=== PATIENT | female | born 1945 | race Caucasian/White ===

== ENCOUNTER 2016-07-16 10:59 | Emergency (ER) | payer MEDICARE, OTHER ==
[~2016-07-16] VITALS: Ht 160 cm; Wt 44.9 kg
[~2016-07-16 10:59] MED LIST: CITA20TA9 PO; FAMO-63 PO; GABA-586 PO; LEVO175T5; PREG150C PO; RANI150T6 PO; SIMV40TA3
[2016-07-16] MEDS ORDERED: IV NORMAL SALINE 1000ML BAG 1,000 ML IV SCH (12:46)
[2016-07-16 13:05] LABS: BILIRUBIN,URINE NEGATIVE (NEG); GLUCOSE,URINE NEGATIVE (NEG); NITRITE,URINE NEGATIVE (NEG); PH,URINE 7.5; PROTEIN,URINE NEGATIVE (NEG-TRACE); UROBILINOGEN,URINE 0.2 mg/dL (0.2 mg/dL)
--- NOTE | 2016-07-16 13:10 | EKG ---
[facility] [address] [place] [address] Test Date: 2016-07-16 Test Time: 13:02:19 Pat Name: ANNABEL JIMENEZ Department: Room: Gender: F [employer] W[employer]: : 1945 Requested By: HEAVEN MUÑOZ Order Number: [id number] Reading MD: Anita Edmond Measurements Intervals [place] Rate: 57 P: 48 ND: 174 QRS: 38 QRSD: 84 T: 63 QT: 430 QTc: 422 Interpretive Statements SINUS RHYTHM NORMAL ECG Electronically Signed On 07-17-2016 0:34:00 [employer] by Anita Edmond
[2016-07-16 13:14] LABS: BARBITURATES NEG (NEG); BENZODIAZEPINES NEG (NEG); CANNABINOIDS NEG (NEG); COCAINE NEG (NEG); METHADONE NEG (NEG); OPIATES NEG (NEG); PHENCYCLIDINE NEG (NEG)
[2016-07-16 13:17] LABS: BACTERIA,URINE FEW /HPF (0-FEW); RBC,URINE 0 /HPF (0-2); SQUAMOUS EPITHELIAL CELL,UR MOD /LPF
[2016-07-16 13:20] LABS: ETHANOL, URINE NEG (NEG)
--- NOTE | 2016-07-16 13:20 | RAD ---
AP chest, 07/16/2016: History: Lightheadedness and dizziness Comparison is made to a study from 08/27/2015. The heart size and pulmonary vascularity are normal. No pulmonary infiltrates are seen. There is no evidence of pleural fluid. There is capsular calcification related to a left breast implant. IMPRESSION: No acute cardiopulmonary abnormality is detected.
[2016-07-16 13:38] LABS: BASO % 1 % (0-3); EOS % 2 % (0-3); HEMATOCRIT 37.9 % (36.0-47.0); HEMOGLOBIN 12.6 g/dL (12.0-15.5); LYMPH # 1.6 x10^3/uL (1.0-4.8); LYMPH % 36 % (24-48); MEAN CORPUSCULAR HEMOGLOBIN 28 pg (25-35); MEAN CORPUSCULAR HGB CONC 33 g/dL (31-37); MEAN CORPUSCULAR VOLUME 85 fL (79-100); MONO % 9 % (0-9); NEUT % 52 % (31-73); PLATELET COUNT 175 x10^3/uL (140-400); RED BLOOD COUNT 4.44 x10^6/uL (3.50-5.40); RED CELL DISTRIBUTION WIDTH 13.6 % (11.5-14.5); WHITE BLOOD COUNT 4.5 x10^3/uL (4.0-11.0)
[2016-07-16 13:47] LABS: CALCIUM 9.4 mg/dL (8.5-10.1); CREATININE 0.8 mg/dL (0.6-1.0); GFR 70.9; POTASSIUM 4.2 mmol/L (3.5-5.1); PROTHROMBIN TIME PATIENT 12.9 SEC (11.7-14.0)
[2016-07-16 13:48] LABS: NEG OBC FOB NEG; POS OBC FOB POS
[2016-07-16 13:53] LABS: ALBUMIN 3.9 g/dL (3.4-5.0); ALBUMIN/GLOBULIN RATIO 1.2 (1.0-1.7); TOTAL BILIRUBIN 0.5 mg/dL (0.2-1.0); TOTAL PROTEIN 7.2 g/dL (6.4-8.2)
[2016-07-16 14:00] VITALS: BP 142/65
[2016-07-16 14:04] LABS: CKMB INDEX 0.9 % (0-4); CKMB MASS 0.9 ng/mL (0.0-3.6)
--- NOTE | 2016-07-16 14:51 | PHYS DOC ---
Past Medical History Past Medical History: Cancer, Diabetes-Type II, High Cholesterol, Hypertension , UTI Additional Past Medical Histor: yeast infections, BREAST CA, MULTIPLE LUNG NODULES, THYROID DZ, ACID REFLUX Past Surgical History: Hip Replacement Additional Past Surgical Histo: rt wrist, R HAND SX Alcohol Use: None Drug Use: None Adult General Chief Complaint Chief Complaint: DIZZY/LIGHT HEADED HPI HPI Patient is a 71 year old female who presents with complaint of "haziness in my head." Patient states that she has been having these symptoms for the past 3-4 months. Patient states that she had been diagnosed 3 months ago with "food poisoning" and states that she was treated for Escherichia coli and salmonella infection. Patient states that after treatment with antibiotic she felt initially better, however after a week she started getting the same symptoms. Patient has not seen her primary physician recently for her symptoms. Patient denies any fevers. Patient states that she is had decreased energy and increased fatigue at home. The patient came to the emergency department for evaluation. Patient denies any pain currently and does not have any issues with vision loss. Patient states that she has had dark stools which she attributes to eating dark green vegetables. Review of Systems Review of Systems Constitutional: Fatigue, "haziness in my head," Denies fever or chills [] Eyes: Denies change in visual acuity, redness, or eye pain [] HENT: Denies nasal congestion or sore throat [] Respiratory: Denies cough or shortness of breath [] Cardiovascular: Denies chest pain or edema [] GI: Dark stools, Denies abdominal pain, nausea, vomiting or diarrhea [] : Denies dysuria or hematuria [] Musculoskeletal: Denies back pain or joint pain [] Integument: Denies rash or skin lesions [] Neurologic: Denies headache, focal weakness or sensory changes [] Endocrine: Denies polyuria or polydipsia [] Current Medications Current Medications Current Medications Medications (Trade) Dose Ordered Sig/Bruno Start Time Stop Time Status Last Admin Dose Admin Sodium Chloride (Iv Sodium Chloride 0.9% 1000ml Bag) 1,000 ml @ 1,000 mls/hr Q1H 07/16/16 12:46 07/16/16 13:45 DC 07/16/16 13:24 1,000 MLS/HR Allergies Allergies Allergies Coded Allergies Type Severity Reaction Last Updated Verified peanut Allergy Intermediate Rash 11/15/15 Yes iodine Adverse Reaction Intermediate vomiting 05/27/14 Yes Physical Exam Physical Exam Constitutional: Alert, afebrile, no acute distress, nontoxic appearance. [] HENT: Normocephalic, atraumatic, bilateral external ears normal, oropharynx moist, no oral exudates, nose normal. [] Eyes: PERRLA, EOMI, conjunctiva normal, no discharge. [] Neck: Normal range of motion, no tenderness, supple, no stridor. [] Cardiovascular:Heart rate regular rhythm, no murmur [] Lungs & Thorax: Bilateral breath sounds clear to auscultation [] Abdomen: Bowel sounds normal, soft, no tenderness, no masses, no pulsatile masses. [] Skin: Warm, dry, no erythema, no rash. [] Back: No tenderness, no CVA tenderness. [] Extremities: No tenderness, no cyanosis, no clubbing, ROM intact, no edema. [] Neurologic: Alert and oriented X 3, normal motor function, normal sensory function, no focal deficits noted. [] Current Patient Data Vital Signs Vital Signs Date Time Temp Pulse Resp B/P Pulse Ox O2 Delivery O2 Flow Rate FiO2 07/16/16 11:16 97.7 70 20 138/64 97 Room Air 97.7 Lab Values Laboratory Tests Test 07/16/16 12:32 07/16/16 13:10 07/16/16 13:25 Urine Collection Type Void Urine Color Yellow Urine Clarity Clear Urine pH 7.5 Urine Specific [place] <=1.005 Urine Protein Negativemg/dL (NEG-TRACE) Urine Glucose (UA) Negativemg/dL (NEG) Urine Ketones (Stick) Negativemg/dL (NEG) Urine Blood Negative (NEG) Urine Nitrite Negative (NEG) Urine Bilirubin Negative (NEG) Urine Urobilinogen Dipstick 0.2mg/dL (0.2 mg/dL) Urine Leukocyte Esterase Trace (NEG) Urine RBC 0/HPF (0-2) Urine WBC 1-4/HPF (0-4) Urine Squamous Epithelial Cells Mod/LPF Urine Bacteria Few/HPF (0-FEW) Urine Opiates Screen Neg (NEG) Urine Methadone Screen Neg (NEG) Urine Barbiturates Neg (NEG) Urine Phencyclidine Screen Neg (NEG) Urine Amphetamine/Methamphetamine Neg (NEG) Urine Benzodiazepines Screen Neg (NEG) Urine Cocaine Screen Neg (NEG) Urine Cannabinoids Screen Neg (NEG) Urine Ethyl Alcohol Neg (NEG) Stool Occult Blood Negative (NEG) White Blood Count 4.5x10^3/uL (4.0-11.0) Red Blood Count 4.44x10^6/uL (3.50-5.40) Hemoglobin 12.6g/dL (12.0-15.5) Hematocrit 37.9% (36.0-47.0) Mean Corpuscular Volume 85fL (79-100) Mean Corpuscular Hemoglobin 28pg (25-35) Mean Corpuscular Hemoglobin Concent 33g/dL (31-37) Red Cell Distribution Width 13.6% (11.5-14.5) Platelet Count 175x10^3/uL (140-400) Neutrophils (%) (Auto) 52% (31-73) Lymphocytes (%) (Auto) 36% (24-48) Monocytes (%) (Auto) 9% (0-9) Eosinophils (%) (Auto) 2% (0-3) Basophils (%) (Auto) 1% (0-3) Neutrophils # (Auto) 2.3x10^3uL (1.8-7.7) Lymphocytes # (Auto) 1.6x10^3/uL (1.0-4.8) Monocytes # (Auto) 0.4x10^3/uL (0.0-1.1) Eosinophils # (Auto) 0.1x10^3/uL (0.0-0.7) Basophils # (Auto) 0.0x10^3/uL (0.0-0.2) Prothrombin Time 12.9SEC (11.7-14.0) Prothrombin Time INR 1.0 (0.8-1.1) PTT 29SEC (24-38) Sodium Level 143mmol/L (136-145) Potassium Level 4.2mmol/L (3.5-5.1) Chloride Level 103mmol/L (98-107) Carbon Dioxide Level 32mmol/L (21-32) Anion Gap 8 (6-14) Blood Urea Nitrogen 14mg/dL (7-20) Creatinine 0.8mg/dL (0.6-1.0) Estimated GFR (Cockcroft-Gault) 70.9 BUN/Creatinine Ratio 18 (6-20) Glucose Level 85mg/dL (70-99) Calcium Level 9.4mg/dL (8.5-10.1) Total Bilirubin 0.5mg/dL (0.2-1.0) Aspartate Amino Transferase (AST) 39U/L (15-37) H Alanine Aminotransferase (ALT) 42U/L (14-59) Alkaline Phosphatase 67U/L (46-116) Creatine Kinase 98U/L (26-192) Creatine Kinase MB (Mass) 0.9ng/mL (0.0-3.6) Creatine Kinase MB Relative Index 0.9% (0-4) Troponin I Quantitative < 0.017ng/mL (0.000-0.055) Total Protein 7.2g/dL (6.4-8.2) Albumin 3.9g/dL (3.4-5.0) Albumin/Globulin Ratio 1.2 (1.0-1.7) Lipase 156U/L (73-393) Thyroid Stimulating Hormone (TSH) 4.503uIU/mL (0.358-3.74) H Laboratory Tests 07/16/16 13:25 Laboratory Tests 07/16/16 13:25 EKG EKG Interpreted by me: Heart rate 57, sinus rhythm, normal intervals, normal axis, no acute ST/T-wave abnormalities present [] Radiology/Procedures Radiology/Procedures [facility] [address] [place] [address] IMAGING REPORT Signed PATIENT: ANNABEL JIMENEZ ACCOUNT: [id number] : 1945 LOCATION: ER AGE: 71 SEX: F EXAM STATUS: REG ER ORD. PHYSICIAN: HEAVEN MUÑOZ MD REASON: lightheadedness, dizziness, rule out acute cardiopulmonary abnormality PROCEDURE: PORTABLE CHEST 1V AP chest, 07/16/2016: History: Lightheadedness and dizziness Comparison is made to a study from 08/27/2015. The heart size and pulmonary vascularity are normal. No pulmonary infiltrates are seen. There is no evidence of pleural fluid. There is capsular calcification related to a left breast implant. IMPRESSION: No acute cardiopulmonary abnormality is detected. DICTATED and SIGNED BY: LAURENT ANGELO MD DATE: 07/16/16 1317 CC: ANGELICA ASHTON; HEAVEN MUÑOZ MD ~ [] Course & Med Decision Making Course & Med Decision Making Pertinent Labs and Imaging studies reviewed. (See chart for details) Patient's workup shows an elevated TSH level which may be suggestive of under treatment of the patient's hypothyroid condition. This may be contributing to the patient's symptomatology. I recommended that the patient follow-up in the next 2-3 days with her primary physician for reevaluation of her current Synthroid treatment and possible need to increase dosage. The patient's workup otherwise is unremarkable. The patient was recommended to return to the emergency department for any worsening or severe symptoms including fevers, chest or abdominal pain, shortness of breath, or any other worrisome symptoms. Patient voiced understanding and in agreement with treatment plan. Dragon Disclaimer Dragon Disclaimer This electronic medical record was generated, in whole or in part, using a voice recognition dictation system. Departure Departure Impression: Primary Impression: Hypothyroidism Additional Impression: Fatigue Disposition: 01 HOME, SELF-CARE Condition: IMPROVED Referrals: ANGELICA ASHTON (PCP) Patient Instructions: Fatigue, Thyroid Diseases Additional Instructions: Follow-up with your primary doctor in 2-3 days. You may need to have an adjustment on your thyroid medication as your TSH was elevated, however your primary doctor will need to do additional thyroid studies if needed. Return to the emergency department if you have any worsening symptoms. Problem Qualifiers Primary Impression: Hypothyroidism Hypothyroidism type: unspecified Qualified Code: E03.9 - Hypothyroidism, unspecified Additional Impression: Fatigue Fatigue type: unspecified Qualified Code: R53.83 - Other fatigue HEAVEN MUÑOZ MD Jul 16, 2016 14:51
== END 2016-07-16 15:00 | disposition home or self-care (01) ==
LOC: ER 10:59
DX: R53.83 Other fatigue (principal); E03.9 Hypothyroidism, unspecified; E11.9 Type 2 diabetes mellitus without complications; E78.00 Pure hypercholesterolemia, unspecified; I10 Essential (primary) hypertension; K21.9 Gastro-esophageal reflux disease without esophagitis; Z87.440 Personal history of urinary (tract) infections; Z98.890 Other specified postprocedural states; Z96.649 Presence of unspecified artificial hip joint; Z91.041 Radiographic dye allergy status; Z91.010 Allergy to peanuts
CPT/HCPCS: 36415; 71010; 80053; 81001; 82274; 82553; 83690; 84443; 84484; 85027; 85610; 85730; 86850; 86900; 86901; 87086; 93005; 96360; 99285; G0481; J7030

== ENCOUNTER 2016-09-10 21:39 | Emergency (ER) | payer MEDICARE, OTHER ==
[~2016-09-10] VITALS: Ht 160 cm; Wt 46.7 kg
[2016-09-10 22:11] VITALS: BP 129/55
--- NOTE | 2016-09-10 22:19 | PHYS DOC ---
Past Medical History Past Medical History: Cancer, Diabetes-Type II, High Cholesterol, Hypertension , UTI Additional Past Medical Histor: yeast infections, BREAST CA, MULTIPLE LUNG NODULES, THYROID DZ, ACID REFLUX Past Surgical History: Hip Replacement Additional Past Surgical Histo: rt wrist, R HAND SX Alcohol Use: None Drug Use: None Adult General Chief Complaint Chief Complaint: DENTAL PROBLEM HPI HPI 71-year-old female presents stating her gums hurt. She states is been going on for a few days. She's not had any bleeding swelling or redness. She states it happened after cat scratched her. She has not had any other trauma to the area. She's been eating drinking voiding and stooling normally. [] Review of Systems Review of Systems Constitutional: Denies fever or chills [] Eyes: Denies change in visual acuity, redness, or eye pain [] HENT: Per history of present illness [] Respiratory: Denies cough or shortness of breath [] Cardiovascular: No additional information not addressed in HPI [] GI: Denies abdominal pain, nausea, vomiting, bloody stools or diarrhea [] : Denies dysuria or hematuria [] Musculoskeletal: Denies back pain or joint pain [] Integument: Denies rash or skin lesions [] Neurologic: Denies headache, focal weakness or sensory changes [] Endocrine: Denies polyuria or polydipsia [] Allergies Allergies Allergies Coded Allergies Type Severity Reaction Last Updated Verified peanut Allergy Intermediate Rash 11/15/15 Yes iodine Adverse Reaction Intermediate vomiting 05/27/14 Yes Physical Exam Physical Exam Constitutional: Well developed, well nourished, no acute distress, non-toxic appearance. [] HENT: Normocephalic, atraumatic, bilateral external ears normal, oropharynx moist, no oral exudates, nose normal. [] Eyes: PERRLA, EOMI, conjunctiva normal, no discharge. [] Neck: Normal range of motion, no tenderness, supple, no stridor. [] Cardiovascular:Heart rate regular rhythm, no murmur [] Lungs & Thorax: Bilateral breath sounds clear to auscultation [] Abdomen: Bowel sounds normal, soft, no tenderness, no masses, no pulsatile masses. [] Skin: Warm, dry, no erythema, no rash. [] Back: No tenderness, no CVA tenderness. [] Extremities: No tenderness, no cyanosis, no clubbing, ROM intact, no edema. [] Neurologic: Alert and oriented X 3, normal motor function, normal sensory function, no focal deficits noted. [] Psychologic: Affect normal, judgement normal, mood normal. [] EKG EKG [] Radiology/Procedures Radiology/Procedures [] Course & Med Decision Making Course & Med Decision Making Pertinent Labs and Imaging studies reviewed. (See chart for details) [] Dragon Disclaimer Dragon Disclaimer This electronic medical record was generated, in whole or in part, using a voice recognition dictation system. Departure Departure Impression: Primary Impression: Anxiety about health Disposition: HOME, SELF-CARE Condition: STABLE Referrals: ANGELICA ASHTON (PCP) Patient Instructions: Gingivitis Additional Instructions: Follow with a dentist this week for recheck. Return to the emergency department with any new or concerning symptoms MALIKA FORD DO Sep 10, 2016 22:19
== END 2016-09-10 22:26 | disposition home or self-care (01) ==
LOC: ER 21:39
DX: F41.9 Anxiety disorder, unspecified (principal); E11.9 Type 2 diabetes mellitus without complications; E78.00 Pure hypercholesterolemia, unspecified; I10 Essential (primary) hypertension; K21.9 Gastro-esophageal reflux disease without esophagitis; Z88.8 Allergy status to other drugs, medicaments and biological substances; Z91.010 Allergy to peanuts; Z87.440 Personal history of urinary (tract) infections
CPT/HCPCS: 99281

== ENCOUNTER → 2016-10-24 | Outpatient (CLI) | payer MEDICARE, OTHER ==
--- NOTE | 2016-10-24 15:53 | RAD ---
Chest, 2 views, 10/24/2016: History: Cough Comparison is made to a study from 07/16/2016. The heart size and pulmonary vascularity are normal. No pulmonary infiltrates are seen. There is no evidence of pleural fluid. Mild loss of height of several thoracic vertebral bodies appears to be unchanged since a CT study from 05/23/2016. IMPRESSION: No acute cardiopulmonary abnormality is detected.
== END | disposition home or self-care (01) ==
LOC: RAD 11:59
PROVIDERS: ATTEND Internal Medicine Pulmonary Disease
DX: R05 Cough (principal)
CPT/HCPCS: 71020

== ENCOUNTER 2017-02-17 13:15 | Emergency (ER) | payer MEDICARE, OTHER ==
[2017-02-17 13:51] VITALS: BP 136/68
--- NOTE | 2017-02-17 15:16 | PHYS DOC ---
Past Medical History Past Medical History: Cancer, Diabetes-Type II, High Cholesterol, Hypertension , UTI Additional Past Medical Histor: yeast infections, BREAST CA, MULTIPLE LUNG NODULES, THYROID DZ, ACID REFLUX Past Surgical History: Hip Replacement Additional Past Surgical Histo: rt wrist, R HAND SX Alcohol Use: None Drug Use: None Adult General Chief Complaint Chief Complaint: ABDOMINAL PAIN HPI HPI Patient is a 71 year old female who presents with complaint of abdominal pain. Patient states that she has had abdominal pain off and on for the past week. Patient states that she saw an advanced practice provider at her primary physician's office one week ago. Patient stated that she had been having episodes of passing out as she had also complained of her abdominal pain. The patient states that she was told by her provider that she should come to the emergency department at that time. The patient however refused. Patient states initially she was feeling better, however over the past 3 days she has been getting abdominal pain off and on in her left lower quadrant. Patient also states she has not had a bowel movement in 2-3 days. Patient states that she tried glycerin suppositories to help with her symptoms with no relief. Patient states currently she is not experiencing pain. Patient states that she has had frequent episodes of passing out, however she denies any injuries associated with the symptoms. Patient denies any previous history of cardiac disease. Patient does admit that she has not been eating or drinking very well because of her abdominal pain symptoms. Review of Systems Review of Systems Constitutional: Denies fever or chills [] Eyes: Denies change in visual acuity, redness, or eye pain [] HENT: Denies nasal congestion or sore throat [] Respiratory: Denies cough or shortness of breath [] Cardiovascular: Reported syncope, denies chest pain or edema [] GI: Abdominal pain, nausea, decreased appetite, denies bloody stools or diarrhea [] : Denies dysuria or hematuria [] Musculoskeletal: Denies back pain or joint pain [] Integument: Denies rash or skin lesions [] Neurologic: Denies headache, focal weakness or sensory changes [] Current Medications Current Medications Current Medications Medications (Trade) Dose Ordered Sig/Bruno Start Time Stop Time Status Last Admin Dose Admin Sodium Chloride 1,000 ml @ 1,000 mls/hr Q1H 02/17/17 15:30 02/17/17 16:29 DC 02/17/17 15:31 1,000 MLS/HR Allergies Allergies Allergies Coded Allergies Type Severity Reaction Last Updated Verified peanut Allergy Intermediate Rash 11/15/15 Yes iodine Adverse Reaction Intermediate vomiting 05/27/14 Yes Physical Exam Physical Exam Constitutional: Well developed, well nourished, no acute distress, non-toxic appearance. [] HENT: Normocephalic, atraumatic, bilateral external ears normal, oropharynx moist, no oral exudates, nose normal. [] Eyes: PERRLA, EOMI, conjunctiva normal, no discharge. [] Neck: Normal range of motion, no tenderness, supple, no stridor. [] Cardiovascular:Heart rate regular rhythm, no murmur [] Lungs & Thorax: Bilateral breath sounds clear to auscultation [] Abdomen: Bowel sounds normal, soft, no tenderness, no masses, no pulsatile masses. [] Skin: Warm, dry, no erythema, no rash. [] Back: No tenderness, no CVA tenderness. [] Extremities: No tenderness, no cyanosis, no clubbing, ROM intact, no edema. [] Neurologic: Alert and oriented X 3, normal motor function, normal sensory function, no focal deficits noted. [] Current Patient Data Vital Signs Vital Signs Date Time Temp Pulse Resp B/P (MAP) Pulse Ox O2 Delivery O2 Flow Rate FiO2 02/17/17 13:51 98.7 82 16 136/68 (90) 97 Room Air 98.7 Lab Values Laboratory Tests Test 02/17/17 13:45 02/17/17 16:33 Urine Collection Type Unknown Urine Color Yellow Urine Clarity Clear Urine pH 7.5 Urine Specific [place] 1.010 Urine Protein Negative mg/dL (NEG-TRACE) Urine Glucose (UA) Negative mg/dL (NEG) Urine Ketones (Stick) Negative mg/dL (NEG) Urine Blood Negative (NEG) Urine Nitrite Negative (NEG) Urine Bilirubin Negative (NEG) Urine Urobilinogen Dipstick 0.2 mg/dL (0.2 mg/dL) Urine Leukocyte Esterase Trace (NEG) Urine RBC 0 /HPF (0-2) Urine WBC 1-4 /HPF (0-4) Urine Squamous Epithelial Cells Mod /LPF Urine Bacteria Few /HPF (0-FEW) White Blood Count 5.7 x10^3/uL (4.0-11.0) Red Blood Count 4.35 x10^6/uL (3.50-5.40) Hemoglobin 12.5 g/dL (12.0-15.5) Hematocrit 37.8 % (36.0-47.0) Mean Corpuscular Volume 87 fL (79-100) Mean Corpuscular Hemoglobin 29 pg (25-35) Mean Corpuscular Hemoglobin Concent 33 g/dL (31-37) Red Cell Distribution Width 13.2 % (11.5-14.5) Platelet Count 143 x10^3/uL (140-400) Neutrophils (%) (Auto) 54 % (31-73) Lymphocytes (%) (Auto) 32 % (24-48) Monocytes (%) (Auto) 12 % (0-9) H Eosinophils (%) (Auto) 2 % (0-3) Basophils (%) (Auto) 1 % (0-3) Neutrophils # (Auto) 3.1 x10^3uL (1.8-7.7) Lymphocytes # (Auto) 1.8 x10^3/uL (1.0-4.8) Monocytes # (Auto) 0.7 x10^3/uL (0.0-1.1) Eosinophils # (Auto) 0.1 x10^3/uL (0.0-0.7) Basophils # (Auto) 0.0 x10^3/uL (0.0-0.2) Sodium Level 140 mmol/L (136-145) Potassium Level 4.5 mmol/L (3.5-5.1) Chloride Level 105 mmol/L (98-107) Carbon Dioxide Level 28 mmol/L (21-32) Anion Gap 7 (6-14) Blood Urea Nitrogen 14 mg/dL (7-20) Creatinine 0.6 mg/dL (0.6-1.0) Estimated GFR (Cockcroft-Gault) 98.8 BUN/Creatinine Ratio 23 (6-20) H Glucose Level 77 mg/dL (70-99) Calcium Level 8.8 mg/dL (8.5-10.1) Total Bilirubin 0.4 mg/dL (0.2-1.0) Aspartate Amino Transferase (AST) 26 U/L (15-37) Alanine Aminotransferase (ALT) 25 U/L (14-59) Alkaline Phosphatase 52 U/L (46-116) Total Protein 6.4 g/dL (6.4-8.2) Albumin 3.7 g/dL (3.4-5.0) Albumin/Globulin Ratio 1.4 (1.0-1.7) Lipase 118 U/L (73-393) Laboratory Tests 02/17/17 16:33 Laboratory Tests 02/17/17 16:33 EKG EKG Interpreted by me: Heart rate 58, sinus rhythm, normal intervals, normal axis, no acute ST/T-wave abnormalities present [] Radiology/Procedures Radiology/Procedures [facility] [address] [place] [address] IMAGING REPORT Signed PATIENT: HARDY JIMENEZ ACCOUNT: [id number] : 1945 LOCATION: ER AGE: 71 SEX: F EXAM STATUS: REG ER ORD. PHYSICIAN: HEAVEN MUÑOZ MD REASON: abdominal pain PROCEDURE: ACUTE ABDOMEN SERIES Indication dizziness chest pain left lower quadrant pain. A single view of the chest as well as flat and upright films of the abdomen were obtained. The chest is compared to an examination 10/24/2016. The heart and pulmonary vessels appear normal. The lungs are clear. There is no pleural fluid. There is no pneumothorax. Partially calcified breast implants are noted. There is no free air. The abdominal gas pattern is nonobstructive. There is some air in minimally dilated loops of small bowel in the left upper abdomen. This is a nonspecific finding. There is a considerable amount of stool in the large bowel. There is a calcification in the left pelvis compatible with a phlebolith. There is a right hip prosthesis. There are degenerative changes about the left hip. IMPRESSION: No acute findings seen in the chest or abdomen. Nonspecific abdominal gas pattern. Moderately large amount of stool noted in the large bowel. DICTATED and SIGNED BY: JOY ACOSTA MD DATE: 02/17/17 1521 CC: ANGELICA ASHTON; HEAVEN MUÑOZ MD ~ [] Course & Med Decision Making Course & Med Decision Making Pertinent Labs and Imaging studies reviewed. (See chart for details) Patient's lab work and imaging were reviewed. Patient has a large amount of retained stool throughout her colon but no signs of intestinal obstruction. The rest of her lab work is unremarkable. The patient's symptoms are likely the result of dehydration and constipation. The patient will be prescribed GoLYTELY for outpatient treatment of constipation. Recommended follow-up with primary doctor in 3-5 days for reevaluation and return to emergency department for any worsening symptoms. Patient voiced understanding and in agreement with treatment plan. Dragon Disclaimer Dragon Disclaimer This electronic medical record was generated, in whole or in part, using a voice recognition dictation system. Departure Departure Impression: Primary Impression: Constipation Additional Impressions: Intermittent left lower quadrant abdominal pain Dehydration Disposition: HOME, SELF-CARE Condition: IMPROVED Referrals: ANGELICA ASHTON (PCP) Patient Instructions: Abdominal Pain, Constipation, Adult, Dehydration, Adult Additional Instructions: Follow-up with your primary doctor in 3-5 days. Return to the emergency department for any worsening symptoms. Scripts Peg 3350/Na Sulf,Bicarb,Cl/Kcl (GOLYTELY SOLUTION) 4,000 Ml Soln.recon 2000 ML PO PRN Y for CONSTIPATION, #1 MISC Drink one half jug as needed for constipation. May drink the other half as needed if you do not obtained desired results. Prov: HEAVEN MUÑOZ MD 02/17/17 Problem Qualifiers Primary Impression: Constipation Constipation type: unspecified constipation type Qualified Codes: K59.00 - Constipation, unspecified HEAVEN MUÑOZ MD Feb 17, 2017 15:16
[2017-02-17 15:21] LABS: BILIRUBIN,URINE NEGATIVE (NEG); GLUCOSE,URINE NEGATIVE (NEG); NITRITE,URINE NEGATIVE (NEG); PH,URINE 7.5; PROTEIN,URINE NEGATIVE (NEG-TRACE); UROBILINOGEN,URINE 0.2 mg/dL (0.2 mg/dL)
--- NOTE | 2017-02-17 15:29 | RAD ---
Indication dizziness chest pain left lower quadrant pain. A single view of the chest as well as flat and upright films of the abdomen were obtained. The chest is compared to an examination 10/24/2016. The heart and pulmonary vessels appear normal. The lungs are clear. There is no pleural fluid. There is no pneumothorax. Partially calcified breast implants are noted. There is no free air. The abdominal gas pattern is nonobstructive. There is some air in minimally dilated loops of small bowel in the left upper abdomen. This is a nonspecific finding. There is a considerable amount of stool in the large bowel. There is a calcification in the left pelvis compatible with a phlebolith. There is a right hip prosthesis. There are degenerative changes about the left hip. IMPRESSION: No acute findings seen in the chest or abdomen. Nonspecific abdominal gas pattern. Moderately large amount of stool noted in the large bowel.
[2017-02-17] MEDS ORDERED: IV NORMAL SALINE 1000ML BAG 1,000 ML IV SCH (15:30)
--- NOTE | 2017-02-17 15:31 | EKG ---
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
[2017-02-17 15:35] LABS: BACTERIA,URINE FEW /HPF (0-FEW); RBC,URINE 0 /HPF (0-2); SQUAMOUS EPITHELIAL CELL,UR MOD /LPF
[2017-02-17 16:40] LABS: BASO % 1 % (0-3); EOS % 2 % (0-3); HEMATOCRIT 37.8 % (36.0-47.0); HEMOGLOBIN 12.5 g/dL (12.0-15.5); LYMPH # 1.8 x10^3/uL (1.0-4.8); LYMPH % 32 % (24-48); MEAN CORPUSCULAR HEMOGLOBIN 29 pg (25-35); MEAN CORPUSCULAR HGB CONC 33 g/dL (31-37); MEAN CORPUSCULAR VOLUME 87 fL (79-100); MONO % 12 % (0-9); NEUT % 54 % (31-73); PLATELET COUNT 143 x10^3/uL (140-400); RED BLOOD COUNT 4.35 x10^6/uL (3.50-5.40); RED CELL DISTRIBUTION WIDTH 13.2 % (11.5-14.5); WHITE BLOOD COUNT 5.7 x10^3/uL (4.0-11.0)
[2017-02-17 16:56] LABS: CALCIUM 8.8 mg/dL (8.5-10.1); CREATININE 0.6 mg/dL (0.6-1.0); GFR 98.8; POTASSIUM 4.5 mmol/L (3.5-5.1)
[2017-02-17 17:01] LABS: ALBUMIN 3.7 g/dL (3.4-5.0); ALBUMIN/GLOBULIN RATIO 1.4 (1.0-1.7); TOTAL BILIRUBIN 0.4 mg/dL (0.2-1.0); TOTAL PROTEIN 6.4 g/dL (6.4-8.2)
[2017-02-17] MEDS ORDERED: PEG4000S8 PO (17:38)
== END 2017-02-17 18:24 | disposition home or self-care (01) ==
LOC: ER 13:15
DX: R10.32 Left lower quadrant pain (principal); E86.0 Dehydration; K59.00 Constipation, unspecified; E11.9 Type 2 diabetes mellitus without complications; E78.00 Pure hypercholesterolemia, unspecified; I10 Essential (primary) hypertension; K21.9 Gastro-esophageal reflux disease without esophagitis; Z87.440 Personal history of urinary (tract) infections; Z96.649 Presence of unspecified artificial hip joint; Z91.041 Radiographic dye allergy status; Z91.010 Allergy to peanuts
CPT/HCPCS: 36415; 74022; 80053; 81001; 83690; 85027; 87086; 93005; 96360; 96361; 99285; J7030

== ENCOUNTER 2017-04-17 14:44 | Emergency (ER) | payer MEDICARE, OTHER ==
[~2017-04-17] VITALS: Ht 160 cm; Wt 43.5 kg
[~2017-04-17 14:44] MED LIST changes: +PEG4000S8 PO
--- NOTE | 2017-04-17 16:01 | EKG ---
[facility] [address] [place] [address] Test Date: 2017-04-17 Test Time: 15:44:59 Pat Name: HARDY JIMENEZ Department: Room: Gender: F Cost Estimator: : 1945 Requested By: MIGUEL ÁNGEL DAVID Order Number: [id number] Reading MD: Herminio Hobson Measurements Intervals [place] Rate: 58 P: 65 TX: 166 QRS: 26 QRSD: 80 T: 58 QT: 400 QTc: 396 Interpretive Statements SINUS RHYTHM LEFT ATRIAL ABNORMALITY INCOMPLETE RIGHT BUNDLE BRANCH BLOCK QRS(T) CONTOUR ABNORMALITY CONSIDER ANTEROSEPTAL MYOCARDIAL DAMAGE Electronically Signed On 05-07-2017 16:56:46 CDT by Herminio Hobson
[2017-04-17 16:07] VITALS: BP 133/91
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
[2017-04-17 16:25] LABS: BASO % 1 % (0-3); EOS % 1 % (0-3); HEMATOCRIT 35.3 % (36.0-47.0); HEMOGLOBIN 11.7 g/dL (12.0-15.5); LYMPH # 1.7 x10^3/uL (1.0-4.8); LYMPH % 23 % (24-48); MEAN CORPUSCULAR HEMOGLOBIN 29 pg (25-35); MEAN CORPUSCULAR HGB CONC 33 g/dL (31-37); MEAN CORPUSCULAR VOLUME 87 fL (79-100); MONO % 9 % (0-9); NEUT % 66 % (31-73); PLATELET COUNT 189 x10^3/uL (140-400); RED BLOOD COUNT 4.06 x10^6/uL (3.50-5.40); WHITE BLOOD COUNT 7.5 x10^3/uL (4.0-11.0)
[2017-04-17 16:31] LABS: GFR 54.7; POTASSIUM 4.2 mmol/L (3.5-5.1)
[2017-04-17 16:34] LABS: PROTHROMBIN TIME PATIENT 12.2 SEC (11.7-14.0)
[2017-04-17 16:36] LABS: ALBUMIN 3.9 g/dL (3.4-5.0); ALBUMIN/GLOBULIN RATIO 1.4 (1.0-1.7); TOTAL BILIRUBIN 0.3 mg/dL (0.2-1.0); TOTAL PROTEIN 6.6 g/dL (6.4-8.2)
[2017-04-17 16:45] LABS: BILIRUBIN,URINE NEGATIVE (NEG); GLUCOSE,URINE NEGATIVE (NEG); NITRITE,URINE NEGATIVE (NEG); PROTEIN,URINE NEGATIVE (NEG-TRACE); UROBILINOGEN,URINE 0.2 mg/dL (0.2 mg/dL)
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
[2017-04-17 16:51] LABS: BARBITURATES NEG (NEG); BENZODIAZEPINES NEG (NEG); CANNABINOIDS NEG (NEG); COCAINE NEG (NEG); METHADONE NEG (NEG); OPIATES NEG (NEG); PHENCYCLIDINE NEG (NEG)
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
--- NOTE | 2017-04-17 17:04 | RAD ---
Right knee with patella, 4 views, 04/17/2017: History: Fall, knee and leg pain No fracture or dislocation is identified. No joint effusion is seen. IMPRESSION: No acute right knee abnormality is detected. Right tibia and fibula, 2 views, 04/17/2017: No fracture is identified. The soft tissues are unremarkable. IMPRESSION: No significant abnormality is identified.
--- NOTE | 2017-04-17 17:05 | RAD ---
Bilateral ankles, 6 views, 04/17/2017: History: Fall No ankle fracture or dislocation is identified. The soft tissues are unremarkable. IMPRESSION: No acute ankle abnormality is detected.
[2017-04-17 17:06] LABS: BACTERIA,URINE FEW /HPF (0-FEW); RBC,URINE 0 /HPF (0-2); SQUAMOUS EPITHELIAL CELL,UR FEW /LPF
[2017-04-17] MEDS ORDERED: ACETAMINOPHEN 500 MG TABLET PO ONE (17:45)
== END 2017-04-17 17:50 | disposition home or self-care (01) ==
LOC: ER 14:44
DX: S00.03XA Contusion of scalp, initial encounter (principal); S80.01XA Contusion of right knee, initial encounter; M25.571 Pain in right ankle and joints of right foot; M25.572 Pain in left ankle and joints of left foot; M79.672 Pain in left foot; M79.671 Pain in right foot; R07.89 Other chest pain; R05 Cough; R68.84 Jaw pain; R10.33 Periumbilical pain; K21.9 Gastro-esophageal reflux disease without esophagitis; E11.9 Type 2 diabetes mellitus without complications; E78.00 Pure hypercholesterolemia, unspecified; Z91.041 Radiographic dye allergy status; Z79.899 Other long term (current) drug therapy; Z91.010 Allergy to peanuts; Y08.89XA Assault by other specified means, initial encounter; Y93.89 Activity, other specified; Y92.89 Other specified places as the place of occurrence of the external cause; Y99.8 Other external cause status
CPT/HCPCS: 36415; 70450; 70486; 71250; 72125; 73564; 73590; 73610; 74176; 80053; 80307; 81001; 84484; 85025; 85610; 85730; 87086; 93005; 99285-25; G0479

== ENCOUNTER → 2017-05-01 | Outpatient (CLI) | payer MEDICARE, OTHER ==
[2017-04-17 16:07] VITALS: BP 133/91
--- NOTE | 2017-05-01 16:00 | RAD ---
Indication chronic cough. History of asthma. Frontal and lateral views of the chest were obtained. Comparison is made to an examination 02/17/2017. There is mild hyperexpansion. The heart and pulmonary vessels appear normal. The lungs are clear of acute infiltrates. Bilateral breast implants are noted. There is no pleural fluid or pneumothorax. There is slight wedging of a lower thoracic vertebral body segment and L1 similar to an examination 04/17/2017. IMPRESSION: No acute finding seen in the chest. No significant change
== END | disposition home or self-care (01) ==
LOC: RAD 14:48
PROVIDERS: ATTEND Internal Medicine Pulmonary Disease
DX: J45.909 Unspecified asthma, uncomplicated (principal)
CPT/HCPCS: 71020

== ENCOUNTER 2017-06-02 21:59 | Inpatient (IN) | payer MEDICARE, OTHER ==
[~2017-06-02] VITALS: Ht 160 cm; Wt 50.4 kg
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
[2017-06-03] MEDS: IV NORMAL SALINE 1000ML BAG 1,000 ML IV SCH ×3 (06:00→22:00)
[2017-06-03] MEDS ORDERED: ONDANSETRON PF 4 MG/2 ML VIAL. IV PRN ×2 (06:00→12:30)
[2017-06-03] MEDS: MORPHINE SULFATE 2 MG/ML DISP.SYRIN. IV PRN ×3 (06:43→12:11)
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
[2017-06-03 07:51] LABS: PROTHROMBIN TIME PATIENT 12.1 SEC (11.7-14.0)
[2017-06-03] MEDS ORDERED: PANT40TA5 PO (07:53)
[2017-06-03] MEDS ORDERED: FLUT16SP NS (07:53)
[2017-06-03] MEDS ORDERED: NEOM10DR32 EACH EAR (07:55)
[2017-06-03] MEDS ORDERED: ATOR40TA59 PO (07:56)
[2017-06-03] MEDS ORDERED: DOXY100C2 PO ×2 (07:56→13:40)
[2017-06-03] MEDS ORDERED: TOLT4CAP PO (07:58)
[2017-06-03] MEDS ORDERED: LEVO150T5 PO (08:00)
[2017-06-03] MEDS ORDERED: SUCR1TAB PO (08:00)
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
--- NOTE | 2017-06-03 09:39 | PDOC ---
Provider Note Provider Note patient seen and examined T3 fracture neuro intact, severe thoracic pain MRI, Brace ordered Dr. Cole consulted Full consult to follow SHANON UMANA MD Jun 03, 2017 09:39
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
[2017-06-03] MEDS ORDERED: LABETALOL 20 MG/4 ML DISP.SYRIN. IVP PRN (12:30)
[2017-06-03] MEDS ORDERED: NEOMYCIN/POLYMYXIN/HC OTIC SUSPENSION 10ML BOTTLE. AU PRN (12:30)
[2017-06-03] MEDS: FLUTICASONE 50MCG/NASAL SPRAY 16GM BOTTLE. NS SCH (13:00)
[2017-06-03] MEDS: LEVOTHYROXINE 150 MCG TABLET PO SCH (13:33)
[2017-06-03] MEDS: CITALOPRAM 10 MG TABLET. PO SCH ×2 (13:34→21:31)
[2017-06-03] MEDS: oxyCODONE/APAP 5/325 1 TAB TABLET PO PRN (13:34)
[2017-06-03] MEDS: PANTOPRAZOLE 40 MG TABLET.DR. PO SCH (13:34)
[2017-06-03] MEDS: GABAPENTIN 300 MG CAPSULE. PO SCH ×2 (13:34→21:38)
[2017-06-03] MEDS: OXYBUTYNIN CHLORIDE 5 MG TABLET PO SCH ×2 (13:34→21:31)
[2017-06-03] MEDS ORDERED: PRED20TA PO (13:40)
--- NOTE | 2017-06-03 14:42 | PDOC1 ---
History and Physical Date of Admission Date of Admission DATE: 06/03/17 TIME: 14:38 Identification/Chief Complaint Chief Complaint fall Problems: Source Source: Caregiver, Chart review, Patient History of Present Illness History of Present Illness very frail 72 y.o female who lives at home, mechanical fall, limited historian bec she doesnt want to rpt her story and there is no ER note avail to me at this point, anyways t3 fx on imaging, She is neurologically intact, no surgical plans per neurosx. Consulted physiatry, back brace and pain meds. She is worried about rehabbing, trying to eat lunch, she could not give me a straight answer if she would go for [facility] or SNU if needed, She appears thin, weight 96 lbs, no height yet, NO BMI calculated Past Medical History Cardiovascular: HTN, Hyperlipidemia Pulmonary: No pertinent hx CENTRAL NERVOUS SYSTEM: Other GI: Constipation, GERD Heme/Onc: No pertinent hx, Cancer Hepatobiliary: No pertinent hx Psych: Bipolar Musculoskeletal: Osteoarthritis, Other Renal/: UTI Endocrine: Diabetes, Hypothyroidism, Osteoporosis Past Surgical History Past Surgical History: Total hip replacement, Other Family History Family History: Cancer, Diabetes Social History Smoke: No ALCOHOL: none Drugs: None Current Problem List Problem List Problems Medical Problems: (1) Back pain Status: Acute (2) Ruptured thoracic disc Status: Acute (3) Traumatic compression fracture of T3 thoracic vertebra Status: Acute Problems: Current Medications Current Medications Current Medications Ondansetron HCl (Zofran) 4 mg PRN Q8HRS PRN IV NAUSEA/VOMITING Last administered on 06/03/17 06:42; Start 06/03/17 at 06:00; Stop 06/03/17 at 12 :28; Status DC Morphine Sulfate 2 mg PRN Q2HR PRN IV PAIN Last administered on 06/03/17 12: 11; Start 06/03/17 at 06:00; Stop 06/04/17 at 05:59 Sodium Chloride 1,000 ml @ 125 mls/hr Q8H IV Last administered on 06/03/17 13:35; Start 06/03/17 at 06:00; Stop 06/04/17 at 05:59 Ondansetron HCl (Zofran) 4 mg PRN Q6HRS PRN IV NAUSEA/VOMITING; Start at 12:30; Stop 06/04/17 at 12:29 Labetalol HCl (Normodyne) 10 mg PRN Q2HR PRN IVP HYPERTENSION, SEE COMMENTS; Start 06/03/17 at 12:30 Atorvastatin Calcium (Lipitor) 40 mg HS PO ; Start 06/03/17 at 21:00 Citalopram Hydrobromide (CeleXA) 10 mg BID PO Last administered on 06/03/17 13:34; Start 06/03/17 at 13:00 Famotidine (Pepcid) 20 mg HS PO ; Start 06/03/17 at 21:00 Fluticasone Propionate (Flonase) 2 spray DAILY NS Last administered on 13:00; Start 06/03/17 at 13:00 Levothyroxine Sodium (Synthroid) 150 mcg DAILY07 PO Last administered on 13:33; Start 06/03/17 at 13:00 Neomycin/ Polymyxin/ Hydrocortisone (Cortisporin Otic) 3 drop PRN TID PRN AU EYE INFECTION; Start 06/03/17 at 12:30 Pantoprazole Sodium (Protonix) 40 mg DAILYAC PO Last administered on 13:34; Start 06/03/17 at 13:00 Polyethylene Glycol (miraLAX PACKET) 17 gm PRN DAILY PRN PO CONSTIPATION; Start 06/04/17 at 09:00 Simvastatin (Zocor) 40 mg QHS PO ; Start 06/03/17 at 21:00; Status UNV Sucralfate (Carafate) 1 gm TIDWMEALS PO ; Start 06/03/17 at 15:00 Gabapentin (Neurontin) 300 mg TID PO Last administered on 06/03/17 13:34; Start 06/03/17 at 14:00 Non-Formulary Medication 1 cap BID PO ; Start 06/03/17 at 21:00; Status UNV Oxybutynin Chloride (Ditropan) 5 mg SMM700 PO Last administered on 06/03/17 13:34; Start 06/03/17 at 14:00 Oxycodone/ Acetaminophen (Percocet 5/325) 1 tab PRN Q4HRS PRN PO PAIN Last administered on 06/03/17 13:34; Start 06/03/17 at 12:30 Prednisone (Prednisone) 40 mg DAILY PO ; Start 06/03/17 at 14:00 Doxycycline Hyclate (Vibra-Tab) 100 mg BID PO ; Start 06/03/17 at 14:00; Stop 06/11/17 at 21:01 Active Scripts Active Golytely Solution (Peg 3350/Na Sulf,Bicarb,Cl/Kcl) 4,000 Ml Soln.recon 2,000 Ml PO PRN PRN Drink one half jug as needed for constipation. May drink the other half as needed if you do not obtained desired results. Reported Prednisone 20 Mg Tablet 2 Tab PO DAILY Doxycycline Hyclate 100 Mg Capsule 1 Cap PO BID Sucralfate 1 Gm Tablet 1 Tab PO TID Levothyroxine Sodium 150 Mcg Tablet 1 Tab PO DAILY07 Detrol La (Tolterodine Tartrate) 4 Mg Cap.er.24h 1 Cap PO HS Atorvastatin Calcium 40 Mg Tablet 40 Mg PO HS Doxycycline Hyclate 100 Mg Capsule 1 Cap PO BID Xkeoarss-Wffwinkwe-Fj Ear Susp (Neomycin/Polymyxin B Sulf/Hc) 10 Ml Drops.susp 3 Drop EACH EAR PRN TID Pantoprazole Sodium 40 Mg Tablet.dr 1 Tab PO DAILY Fluticasone Propionate Nasal [place] (Fluticasone Propionate) 16 Gm [place].susp 2 [place] NS DAILY Simvastatin 40 Mg Tablet 40 Gabapentin 300 Mg Capsule 300 Mg PO TID Lyrica (Pregabalin) 150 Mg Capsule 1 Cap PO BID Pepcid (Famotidine) 20 Mg Tablet 20 Mg PO HS Celexa (Citalopram Hydrobromide) 20 Mg Tablet 10 Mg PO BID Allergies Allergies: Coded Allergies: peanut (Verified Allergy, Intermediate, Rash, 11/15/15) iodine (Verified Adverse Reaction, Intermediate, vomiting, 05/27/14) ROS General: No: Chills, Night Sweats, Fatigue, Malaise, Appetite, Other PSYCHOLOGICAL ROS: No: Anxiety, Behavioral Disorder, Concentration difficultie , Decreased libido, Depression, Disorientation, Hallucinations, Hostility, Irritablity, Memory difficulties, Mood Swings, Obsessive thoughts, Physical abuse, Sexual abuse, Sleep disturbances, Suicidal ideation, Other Eyes: No Blurry vision, No Decreased vision, No Double vision, No Dry eyes, No Excessive tearing, No Eye Pain, No Itchy Eyes, No Loss of vision, No Photophobia , No Scotomata, No Uses contacts, No Uses glasses, No Other HEENT: No: Heacaches, Visual Changes, Hearing change, Nasal congestion, Nasal discharge, Oral lesions, Sinus pain, Sore Throat, Epistaxis, Sneezing, Snoring, Tinnitus, Vertigo, Vocal changes, Other ALLERGY AND IMMUNOLOGY: No: Hives, Insect Bite Sensitivity, Itchy/Watery Eyes, Nasal Congestion, Post Nasal Drip, Seasonal Allergies, Other Hematological and Lymphatic: No: Bleeding Problems, Blood Clots, Blood Transfusions, Brusing, Night Sweats, Pallor, Swollen Lymph Nodes, Other ENDOCRINE: No: Breast Changes, Galactorrhea, Hair Pattern Changes, Hot Flashes , Malaise/lethargy, Mood Swings, Palpitations, Polydipsia/polyuria, Skin Changes , Temperature Intolerance, Unexpected Weight Changes, Other Breast: No New/Changing Breast Lumps, No Nipple changes, No Nipple discharge, No Other Musculoskeletal: Yes Gait Disturbance, Yes Joint Pain, Yes Muscular Weakness Neurological: No Behavorial Changes, No Bowel/Bladder ControlChng, No Confusion , No Dizziness, No Gait Disturbance, No Headaches, No Impaired Coord/balance, No Memory Loss, No Numbness/Tingling, No Seizures, No Speech Problems, No Tremors, No Visual Changes, No Weakness, No Other Skin: No Dry Skin, No Eczema, No Hair Changes, No Lumps, No Mole Changes, No Mottling, No Nail Changes, No Pruritus, No Rash, No Skin Lesion Changes, No Other, No Acne Physical Exam General: Alert, Oriented X3, Cooperative, No acute distress HEENT: Atraumatic, PERRLA, EOMI Lungs: Clear to auscultation, Normal air movement Heart: S1S2, RRR, no thrills, no rubs, no gallops Cardiovascular: S1, S2 Breasts: Normal, Rt breast nml w/o mass, Lt breast nml w/o mass, Nipples normal Abdomen: Normal bowel sounds, Soft, No tenderness, No hepatosplenomegaly, No masses Rectal Exam: not examined PELVIC: Nml ext genitalia Extremities: No clubbing, No cyanosis, No edema, Normal pulses, No tenderness/ swelling Skin: No rashes, No breakdown, No significant lesion Neuro: Normal gait, Normal speech, Strength at 5/5 X4 ext, Normal tone, Sensation intact, Cranial nerves 3-12 NL, Reflexes 2+ Psych/Mental Status: Mental status NL, Mood NL Vitals Vitals Vital Signs Date Time Temp Pulse Resp B/P (MAP) Pulse Ox O2 Delivery O2 Flow Rate FiO2 06/03/17 13:34 Room Air 06/03/17 11:29 95 06/03/17 06:43 16 06/03/17 05:30 90 160/90 (113) 06/02/17 22:05 98.2 98.2 Labs Labs Laboratory Tests Test 06/03/17 07:30 Prothrombin Time 12.1 SEC (11.7-14.0) Prothromb Time International Ratio 1.0 (0.8-1.1) Activated Partial Thromboplast Time 26 SEC (24-38) Laboratory Tests Test 06/03/17 07:30 Prothrombin Time 12.1 SEC (11.7-14.0) Prothromb Time International Ratio 1.0 (0.8-1.1) Activated Partial Thromboplast Time 26 SEC (24-38) VTE Prophylaxis Ordered VTE Prophylaxis Devices: Yes VTE Pharmacological Prophylaxi: Yes Assessment/Plan Assessment/Plan 1. T3 compression fx with some minor disc bulge and bone spurs 2, DJD 3. HTN GERD, COnstipation possible osteoporisos per hx? 4. MEchanical fall 5. Gen weakness 6. Underweight, mild to mod pCM PLAN Admit MIght need rehab or SNU PT/oT COnsult ohsyatry PO and iV pain meds Nutrition consult Check vit D levels dw her my plan- agrees NAIF HYLTON MD Jun 03, 2017 14:42
[2017-06-03 15:00] VITALS: BP 120/62
[2017-06-03] MEDS: SUCRALFATE 1 GM TABLET. PO SCH (15:00)
[2017-06-03 15:36] VITALS: BP 160/90
[2017-06-03] MEDS: DOXYCYCLINE HYCLATE 100 MG TABLET PO SCH ×2 (16:45→21:31)
[2017-06-03] MEDS: predniSONE 20 MG TABLET PO SCH (16:46)
[2017-06-03] MEDS: ALPRAZolam 0.5 MG TABLET PO PRN (16:46)
[2017-06-03 19:00] VITALS: BP 115/69
[2017-06-03] MEDS ORDERED: SIMVASTATIN 40 MG TABLET. PO SCH (21:00)
[2017-06-03] MEDS ORDERED: PREGABALIN PO SCH (21:00)
[2017-06-03] MEDS: ATORVASTATIN CALCIUM 40 MG TABLET. PO SCH (21:31)
[2017-06-03] MEDS: FAMOTIDINE 20 MG TABLET. PO SCH (21:31)
[2017-06-03 23:00] VITALS: BP 129/73
[2017-06-04 03:00] VITALS: BP 138/58
[2017-06-04] MEDS ORDERED: MORPHINE SULFATE 4 MG/ML DISP.SYRIN. IV PRN (03:45)
[2017-06-04 05:17] LABS: BASO % 0 % (0-3); EOS % 0 % (0-3); HEMATOCRIT 40.1 % (36.0-47.0); LYMPH # 0.5 x10^3/uL (1.0-4.8); LYMPH % 7 % (24-48); MEAN CORPUSCULAR HEMOGLOBIN 28 pg (25-35); MEAN CORPUSCULAR HGB CONC 32 g/dL (31-37); MEAN CORPUSCULAR VOLUME 88 fL (79-100); MONO % 4 % (0-9); NEUT % 89 % (31-73); PLATELET COUNT 152 x10^3/uL (140-400); RED BLOOD COUNT 4.57 x10^6/uL (3.50-5.40); RED CELL DISTRIBUTION WIDTH 13.5 % (11.5-14.5); WHITE BLOOD COUNT 7.7 x10^3/uL (4.0-11.0)
[2017-06-04 05:46] LABS: CALCIUM 9.7 mg/dL (8.5-10.1); CREATININE 0.7 mg/dL (0.6-1.0); GFR 82.5; POTASSIUM 4.9 mmol/L (3.5-5.1)
[2017-06-04] MEDS: PANTOPRAZOLE 40 MG TABLET.DR. PO SCH (06:44)
[2017-06-04] MEDS: LEVOTHYROXINE 150 MCG TABLET PO SCH (06:44)
[2017-06-04 07:00] VITALS: BP 123/57
--- NOTE | 2017-06-04 08:46 | PDOC ---
PROGRESS NOTES Chief Complaint Chief Complaint 1. T3 compression fx with some minor disc bulge and bone spurs 2, DJD 3. HTN GERD, COnstipation possible osteoporisos per hx? 4. MEchanical fall 5. Gen weakness 6. Underweight, mild to mod pCM History of Present Illness History of Present Illness HAs not ambulated yet love has not had he back brace yet PT awaiting back brace VS and labs ok, no overnight calls PLAN: PT OT Wait for back brace pain meds Vitals Vitals Vital Signs Date Time Temp Pulse Resp B/P (MAP) Pulse Ox O2 Delivery O2 Flow Rate FiO2 06/04/17 07:00 96.7 58 16 123/57 (79) 98 Room Air 96.7 Physical Exam General: Alert, Oriented X3, Cooperative, No acute distress Lungs: Clear Abdomen: Normal bowel sounds, Soft, No tenderness, No hepatosplenomegaly, No masses Extremities: No clubbing, No cyanosis, No edema, Normal pulses, No tenderness/ swelling Skin: No rashes, No breakdown, No significant lesion Labs LABS Laboratory Tests Test 06/03/17 09:50 06/04/17 04:45 Nasal Screen MRSA (PCR) Negative (Negative) White Blood Count 7.7 x10^3/uL (4.0-11.0) Red Blood Count 4.57 x10^6/uL (3.50-5.40) Hemoglobin 13.0 g/dL (12.0-15.5) Hematocrit 40.1 % (36.0-47.0) Mean Corpuscular Volume 88 fL (79-100) Mean Corpuscular Hemoglobin 28 pg (25-35) Mean Corpuscular Hemoglobin Concent 32 g/dL (31-37) Red Cell Distribution Width 13.5 % (11.5-14.5) Platelet Count 152 x10^3/uL (140-400) Neutrophils (%) (Auto) 89 % (31-73) Lymphocytes (%) (Auto) 7 % (24-48) Monocytes (%) (Auto) 4 % (0-9) Eosinophils (%) (Auto) 0 % (0-3) Basophils (%) (Auto) 0 % (0-3) Neutrophils # (Auto) 6.8 x10^3uL (1.8-7.7) Lymphocytes # (Auto) 0.5 x10^3/uL (1.0-4.8) Monocytes # (Auto) 0.3 x10^3/uL (0.0-1.1) Eosinophils # (Auto) 0.0 x10^3/uL (0.0-0.7) Basophils # (Auto) 0.0 x10^3/uL (0.0-0.2) Sodium Level 138 mmol/L (136-145) Potassium Level 4.9 mmol/L (3.5-5.1) Chloride Level 101 mmol/L (98-107) Carbon Dioxide Level 30 mmol/L (21-32) Anion Gap 7 (6-14) Blood Urea Nitrogen 17 mg/dL (7-20) Creatinine 0.7 mg/dL (0.6-1.0) Estimated GFR (Cockcroft-Gault) 82.5 Glucose Level 233 mg/dL (70-99) Calcium Level 9.7 mg/dL (8.5-10.1) Review of Systems Review of Systems back pain, all else 14 pt neg Assessment and Plan Assessmemt and Plan Problems Medical Problems: (1) Back pain Status: Acute (2) Ruptured thoracic disc Status: Acute (3) Traumatic compression fracture of T3 thoracic vertebra Status: Acute Problems: Comment Review of Relevant I have reviewed the following items gustavo (where applicable) has been applied. Labs Laboratory Tests Test 06/03/17 07:30 06/03/17 09:50 06/04/17 04:45 Prothrombin Time 12.1 SEC (11.7-14.0) Prothromb Time International Ratio 1.0 (0.8-1.1) Activated Partial Thromboplast Time 26 SEC (24-38) Nasal Screen MRSA (PCR) Negative (Negative) White Blood Count 7.7 x10^3/uL (4.0-11.0) Red Blood Count 4.57 x10^6/uL (3.50-5.40) Hemoglobin 13.0 g/dL (12.0-15.5) Hematocrit 40.1 % (36.0-47.0) Mean Corpuscular Volume 88 fL (79-100) Mean Corpuscular Hemoglobin 28 pg (25-35) Mean Corpuscular Hemoglobin Concent 32 g/dL (31-37) Red Cell Distribution Width 13.5 % (11.5-14.5) Platelet Count 152 x10^3/uL (140-400) Neutrophils (%) (Auto) 89 % (31-73) Lymphocytes (%) (Auto) 7 % (24-48) Monocytes (%) (Auto) 4 % (0-9) Eosinophils (%) (Auto) 0 % (0-3) Basophils (%) (Auto) 0 % (0-3) Neutrophils # (Auto) 6.8 x10^3uL (1.8-7.7) Lymphocytes # (Auto) 0.5 x10^3/uL (1.0-4.8) Monocytes # (Auto) 0.3 x10^3/uL (0.0-1.1) Eosinophils # (Auto) 0.0 x10^3/uL (0.0-0.7) Basophils # (Auto) 0.0 x10^3/uL (0.0-0.2) Sodium Level 138 mmol/L (136-145) Potassium Level 4.9 mmol/L (3.5-5.1) Chloride Level 101 mmol/L (98-107) Carbon Dioxide Level 30 mmol/L (21-32) Anion Gap 7 (6-14) Blood Urea Nitrogen 17 mg/dL (7-20) Creatinine 0.7 mg/dL (0.6-1.0) Estimated GFR (Cockcroft-Gault) 82.5 Glucose Level 233 mg/dL (70-99) Calcium Level 9.7 mg/dL (8.5-10.1) Laboratory Tests Test 06/03/17 09:50 06/04/17 04:45 Nasal Screen MRSA (PCR) Negative (Negative) White Blood Count 7.7 x10^3/uL (4.0-11.0) Red Blood Count 4.57 x10^6/uL (3.50-5.40) Hemoglobin 13.0 g/dL (12.0-15.5) Hematocrit 40.1 % (36.0-47.0) Mean Corpuscular Volume 88 fL (79-100) Mean Corpuscular Hemoglobin 28 pg (25-35) Mean Corpuscular Hemoglobin Concent 32 g/dL (31-37) Red Cell Distribution Width 13.5 % (11.5-14.5) Platelet Count 152 x10^3/uL (140-400) Neutrophils (%) (Auto) 89 % (31-73) Lymphocytes (%) (Auto) 7 % (24-48) Monocytes (%) (Auto) 4 % (0-9) Eosinophils (%) (Auto) 0 % (0-3) Basophils (%) (Auto) 0 % (0-3) Neutrophils # (Auto) 6.8 x10^3uL (1.8-7.7) Lymphocytes # (Auto) 0.5 x10^3/uL (1.0-4.8) Monocytes # (Auto) 0.3 x10^3/uL (0.0-1.1) Eosinophils # (Auto) 0.0 x10^3/uL (0.0-0.7) Basophils # (Auto) 0.0 x10^3/uL (0.0-0.2) Sodium Level 138 mmol/L (136-145) Potassium Level 4.9 mmol/L (3.5-5.1) Chloride Level 101 mmol/L (98-107) Carbon Dioxide Level 30 mmol/L (21-32) Anion Gap 7 (6-14) Blood Urea Nitrogen 17 mg/dL (7-20) Creatinine 0.7 mg/dL (0.6-1.0) Estimated GFR (Cockcroft-Gault) 82.5 Glucose Level 233 mg/dL (70-99) Calcium Level 9.7 mg/dL (8.5-10.1) Medications Current Medications Ondansetron HCl (Zofran) 4 mg PRN Q8HRS PRN IV NAUSEA/VOMITING Last administered on 06/03/17 06:42; Start 06/03/17 at 06:00; Stop 06/03/17 at 12 :28; Status DC Morphine Sulfate 2 mg PRN Q2HR PRN IV PAIN Last administered on 06/03/17 12: 11; Start 06/03/17 at 06:00; Stop 06/04/17 at 03:41; Status DC Sodium Chloride 1,000 ml @ 125 mls/hr Q8H IV Last administered on 06/03/17 13:35; Start 06/03/17 at 06:00; Stop 06/04/17 at 05:59; Status DC Ondansetron HCl (Zofran) 4 mg PRN Q6HRS PRN IV NAUSEA/VOMITING; Start at 12:30; Stop 06/04/17 at 12:29 Labetalol HCl (Normodyne) 10 mg PRN Q2HR PRN IVP HYPERTENSION, SEE COMMENTS; Start 06/03/17 at 12:30 Atorvastatin Calcium (Lipitor) 40 mg HS PO Last administered on 06/03/17 21: 31; Start 06/03/17 at 21:00 Citalopram Hydrobromide (CeleXA) 10 mg BID PO Last administered on 06/03/17 21:31; Start 06/03/17 at 13:00 Famotidine (Pepcid) 20 mg HS PO Last administered on 06/03/17 21:31; Start 06/03/17 at 21:00 Fluticasone Propionate (Flonase) 2 spray DAILY NS Last administered on 13:00; Start 06/03/17 at 13:00 Levothyroxine Sodium (Synthroid) 150 mcg DAILY07 PO Last administered on 06:44; Start 06/03/17 at 13:00 Neomycin/ Polymyxin/ Hydrocortisone (Cortisporin Otic) 3 drop PRN TID PRN AU EYE INFECTION; Start 06/03/17 at 12:30 Pantoprazole Sodium (Protonix) 40 mg DAILYAC PO Last administered on 06:44; Start 06/03/17 at 13:00 Polyethylene Glycol (miraLAX PACKET) 17 gm PRN DAILY PRN PO CONSTIPATION; Start 06/04/17 at 09:00 Simvastatin (Zocor) 40 mg QHS PO ; Start 06/03/17 at 21:00; Status UNV Sucralfate (Carafate) 1 gm TIDWMEALS PO Last administered on 06/03/17 15:00; Start 06/03/17 at 15:00 Gabapentin (Neurontin) 300 mg TID PO Last administered on 06/03/17 21:38; Start 06/03/17 at 14:00 Non-Formulary Medication 1 cap BID PO ; Start 06/03/17 at 21:00; Status UNV Oxybutynin Chloride (Ditropan) 5 mg [id number] PO Last administered on 06/03/17 21:31; Start 06/03/17 at 14:00 Oxycodone/ Acetaminophen (Percocet 5/325) 1 tab PRN Q4HRS PRN PO PAIN Last administered on 06/03/17 13:34; Start 06/03/17 at 12:30 Prednisone (Prednisone) 40 mg DAILY PO Last administered on 06/03/17 16:46; Start 06/03/17 at 14:00 Doxycycline Hyclate (Vibra-Tab) 100 mg BID PO Last administered on 06/03/17 21:31; Start 06/03/17 at 14:00; Stop 06/11/17 at 21:01 Alprazolam (Xanax) 0.5 mg PRN Q8HRS PRN PO ANXIETY / AGITATION Last administered on 06/03/17 16:46; Start 06/03/17 at 16:00 Morphine Sulfate 2 mg PRN Q2HR PRN IV PAIN Last administered on 06/04/17 03: 46; Start 06/04/17 at 03:45; Stop 06/04/17 at 05:59; Status DC Active Scripts Active Golytely Solution (Peg 3350/Na Sulf,Bicarb,Cl/Kcl) 4,000 Ml Soln.recon 2,000 Ml PO PRN PRN Drink one half jug as needed for constipation. May drink the other half as needed if you do not obtained desired results. Reported Prednisone 20 Mg Tablet 2 Tab PO DAILY Doxycycline Hyclate 100 Mg Capsule 1 Cap PO BID Sucralfate 1 Gm Tablet 1 Tab PO TID Levothyroxine Sodium 150 Mcg Tablet 1 Tab PO DAILY07 Detrol La (Tolterodine Tartrate) 4 Mg Cap.er.24h 1 Cap PO HS Atorvastatin Calcium 40 Mg Tablet 40 Mg PO HS Doxycycline Hyclate 100 Mg Capsule 1 Cap PO BID Kcnahfww-Derfxdyoj-Lc Ear Susp (Neomycin/Polymyxin B Sulf/Hc) 10 Ml Drops.susp 3 Drop EACH EAR PRN TID Pantoprazole Sodium 40 Mg Tablet.dr 1 Tab PO DAILY Fluticasone Propionate Nasal [place] (Fluticasone Propionate) 16 Gm [place].susp 2 [place] NS DAILY Simvastatin 40 Mg Tablet 40 Gabapentin 300 Mg Capsule 300 Mg PO TID Lyrica (Pregabalin) 150 Mg Capsule 1 Cap PO BID Pepcid (Famotidine) 20 Mg Tablet 20 Mg PO HS Celexa (Citalopram Hydrobromide) 20 Mg Tablet 10 Mg PO BID Vitals/I & O Vital Sign - Last 24 Hours 06/03/17 06/03/17 06/03/17 06/03/17 11:29 12:11 12:47 13:34 Pulse Ox 95 O2 Delivery Room Air Room Air Room Air 06/03/17 06/03/17 06/03/17 06/03/17 14:51 15:00 15:36 16:58 Temp 97.7 98.2 97.7 98.2 Pulse 62 90 Resp 18 B/P (MAP) 120/62 (81) 160/90 (113) Pulse Ox 97 95 O2 Delivery Room Air Room Air Room Air 06/03/17 06/03/17 06/03/17 06/04/17 19:00 20:15 23:00 03:00 Temp 97.9 97.5 98.1 97.9 97.5 98.1 Pulse 61 59 86 Resp 18 18 18 B/P (MAP) 115/69 (84) 129/73 (91) 138/58 (84) Pulse Ox 98 97 95 O2 Delivery Room Air Room Air Room Air Room Air 06/04/17 06/04/17 06/04/17 03:46 04:20 07:00 Temp 96.7 96.7 Pulse 58 Resp 18 18 16 B/P (MAP) 123/57 (79) Pulse Ox 98 O2 Delivery Room Air Room Air Room Air Intake and Output 06/03/17 06/03/17 06/04/17 15:00 23:00 07:00 Intake Total 240 ml 778.3 ml Balance 240 ml 778.3 ml NAIF HYLTON MD Jun 04, 2017 08:46
[2017-06-04] MEDS ORDERED: POLYETHYLENE GLYCOL 3350 17 GM PACKET. PO PRN (09:00)
[2017-06-04 09:32] LABS: PLT ESTIMATE ADEQUATE (ADEQUATE)
[2017-06-04] MEDS: FLUTICASONE 50MCG/NASAL SPRAY 16GM BOTTLE. NS SCH (09:54)
[2017-06-04] MEDS: OXYBUTYNIN CHLORIDE 5 MG TABLET PO SCH ×3 (09:54→21:20)
[2017-06-04] MEDS: oxyCODONE/APAP 5/325 1 TAB TABLET PO PRN ×3 (09:54→22:13)
[2017-06-04] MEDS: GABAPENTIN 300 MG CAPSULE. PO SCH ×3 (09:55→21:20)
[2017-06-04] MEDS: predniSONE 20 MG TABLET PO SCH (09:55)
[2017-06-04] MEDS: CITALOPRAM 10 MG TABLET. PO SCH ×2 (09:55→21:20)
[2017-06-04] MEDS: SUCRALFATE 1 GM TABLET. PO SCH ×3 (09:55→18:24)
[2017-06-04] MEDS: DOXYCYCLINE HYCLATE 100 MG TABLET PO SCH ×2 (09:55→21:20)
[2017-06-04] MEDS: ALPRAZolam 0.5 MG TABLET PO PRN (09:55)
[2017-06-04 11:00] VITALS: BP 124/59
[2017-06-04] MEDS ORDERED: FLU VACC QS2017-18 (36MOS+)/PF 0.5 ML SYRINGE. VAX IM ONE (11:00)
[2017-06-04 15:00] VITALS: BP 132/70
[2017-06-04 19:00] VITALS: BP 128/62
[2017-06-04] MEDS: FAMOTIDINE 20 MG TABLET. PO SCH (21:20)
[2017-06-04] MEDS: ATORVASTATIN CALCIUM 40 MG TABLET. PO SCH (21:20)
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
[2017-06-04 23:00] VITALS: BP 143/75
[2017-06-05 03:00] VITALS: BP 144/78
[2017-06-05] MEDS: LEVOTHYROXINE 150 MCG TABLET PO SCH (06:18)
[2017-06-05] MEDS: PANTOPRAZOLE 40 MG TABLET.DR. PO SCH (06:18)
[2017-06-05 07:00] VITALS: BP 142/76
[2017-06-05] MEDS: predniSONE 20 MG TABLET PO SCH (08:32)
[2017-06-05] MEDS: CITALOPRAM 10 MG TABLET. PO SCH ×2 (08:32→20:30)
[2017-06-05] MEDS: DOXYCYCLINE HYCLATE 100 MG TABLET PO SCH ×2 (08:32→20:31)
[2017-06-05] MEDS: SUCRALFATE 1 GM TABLET. PO SCH ×3 (08:32→16:20)
[2017-06-05] MEDS: OXYBUTYNIN CHLORIDE 5 MG TABLET PO SCH ×3 (08:33→20:30)
[2017-06-05] MEDS: FLUTICASONE 50MCG/NASAL SPRAY 16GM BOTTLE. NS SCH (08:33)
[2017-06-05] MEDS: GABAPENTIN 300 MG CAPSULE. PO SCH ×3 (08:33→20:30)
--- NOTE | 2017-06-05 10:25 | PDOC ---
PROGRESS NOTES Chief Complaint Chief Complaint 1. T3 compression fx with some minor disc bulge and bone spurs 2, DJD 3. HTN GERD, COnstipation possible osteoporisos per hx? 4. MEchanical fall 5. Gen weakness 6. Underweight, mild to mod pCM History of Present Illness History of Present Illness Worked with PT yesterday with her back brace NEeds SNU per pT recs Asleep now, I did not wake NO issues per RN PLAn: CPM SW for SNU Vitals Vitals Vital Signs Date Time Temp Pulse Resp B/P (MAP) Pulse Ox O2 Delivery O2 Flow Rate FiO2 06/05/17 08:15 Room Air 06/05/17 07:00 98.5 56 18 142/76 (98) 97 98.5 Physical Exam General: Alert, Oriented X3, Cooperative, No acute distress Lungs: Clear Abdomen: Normal bowel sounds, Soft, No tenderness, No hepatosplenomegaly, No masses Extremities: No clubbing, No cyanosis, No edema, Normal pulses, No tenderness/ swelling Skin: No rashes, No breakdown, No significant lesion Review of Systems Review of Systems asleep Assessment and Plan Assessmemt and Plan Problems Medical Problems: (1) Back pain Status: Acute (2) Ruptured thoracic disc Status: Acute (3) Traumatic compression fracture of T3 thoracic vertebra Status: Acute Problems: Comment Review of Relevant I have reviewed the following items gustavo (where applicable) has been applied. Labs Laboratory Tests Test 06/04/17 04:45 White Blood Count 7.7 x10^3/uL (4.0-11.0) Red Blood Count 4.57 x10^6/uL (3.50-5.40) Hemoglobin 13.0 g/dL (12.0-15.5) Hematocrit 40.1 % (36.0-47.0) Mean Corpuscular Volume 88 fL (79-100) Mean Corpuscular Hemoglobin 28 pg (25-35) Mean Corpuscular Hemoglobin Concent 32 g/dL (31-37) Red Cell Distribution Width 13.5 % (11.5-14.5) Platelet Count 152 x10^3/uL (140-400) Neutrophils (%) (Auto) 89 % (31-73) Lymphocytes (%) (Auto) 7 % (24-48) Monocytes (%) (Auto) 4 % (0-9) Eosinophils (%) (Auto) 0 % (0-3) Basophils (%) (Auto) 0 % (0-3) Neutrophils # (Auto) 6.8 x10^3uL (1.8-7.7) Lymphocytes # (Auto) 0.5 x10^3/uL (1.0-4.8) Monocytes # (Auto) 0.3 x10^3/uL (0.0-1.1) Eosinophils # (Auto) 0.0 x10^3/uL (0.0-0.7) Basophils # (Auto) 0.0 x10^3/uL (0.0-0.2) Segmented Neutrophils % 86 % (35-66) Band Neutrophils % 2 % (0-9) Lymphocytes % 4 % (24-48) Atypical Lymphocytes % (Manual) 3 % (0-0) Monocytes % 5 % (0-10) Platelet Estimate Adequate (ADEQUATE) Sodium Level 138 mmol/L (136-145) Potassium Level 4.9 mmol/L (3.5-5.1) Chloride Level 101 mmol/L (98-107) Carbon Dioxide Level 30 mmol/L (21-32) Anion Gap 7 (6-14) Blood Urea Nitrogen 17 mg/dL (7-20) Creatinine 0.7 mg/dL (0.6-1.0) Estimated GFR (Cockcroft-Gault) 82.5 Glucose Level 233 mg/dL (70-99) Calcium Level 9.7 mg/dL (8.5-10.1) 25-Hydroxy Vitamin D Total 25.9 ng/mL (30-100) Medications Current Medications Ondansetron HCl (Zofran) 4 mg PRN Q8HRS PRN IV NAUSEA/VOMITING Last administered on 06/03/17 06:42; Start 06/03/17 at 06:00; Stop 06/03/17 at 12 :28; Status DC Morphine Sulfate 2 mg PRN Q2HR PRN IV PAIN Last administered on 06/03/17 12: 11; Start 06/03/17 at 06:00; Stop 06/04/17 at 03:41; Status DC Sodium Chloride 1,000 ml @ 125 mls/hr Q8H IV Last administered on 06/03/17 13:35; Start 06/03/17 at 06:00; Stop 06/04/17 at 05:59; Status DC Ondansetron HCl (Zofran) 4 mg PRN Q6HRS PRN IV NAUSEA/VOMITING; Start at 12:30; Stop 06/04/17 at 12:29; Status DC Labetalol HCl (Normodyne) 10 mg PRN Q2HR PRN IVP HYPERTENSION, SEE COMMENTS; Start 06/03/17 at 12:30 Atorvastatin Calcium (Lipitor) 40 mg HS PO Last administered on 06/04/17 21: 20; Start 06/03/17 at 21:00 Citalopram Hydrobromide (CeleXA) 10 mg BID PO Last administered on 06/05/17 08:32; Start 06/03/17 at 13:00 Famotidine (Pepcid) 20 mg HS PO Last administered on 06/04/17 21:20; Start 06/03/17 at 21:00 Fluticasone Propionate (Flonase) 2 spray DAILY NS Last administered on 08:33; Start 06/03/17 at 13:00 Levothyroxine Sodium (Synthroid) 150 mcg DAILY07 PO Last administered on 06:18; Start 06/03/17 at 13:00 Neomycin/ Polymyxin/ Hydrocortisone (Cortisporin Otic) 3 drop PRN TID PRN AU EYE INFECTION; Start 06/03/17 at 12:30 Pantoprazole Sodium (Protonix) 40 mg DAILYAC PO Last administered on 06:18; Start 06/03/17 at 13:00 Polyethylene Glycol (miraLAX PACKET) 17 gm PRN DAILY PRN PO CONSTIPATION; Start 06/04/17 at 09:00 Simvastatin (Zocor) 40 mg QHS PO ; Start 06/03/17 at 21:00; Status UNV Sucralfate (Carafate) 1 gm TIDWMEALS PO Last administered on 06/05/17 08:32; Start 06/03/17 at 15:00 Gabapentin (Neurontin) 300 mg TID PO Last administered on 06/05/17 08:33; Start 06/03/17 at 14:00 Non-Formulary Medication 1 cap BID PO ; Start 06/03/17 at 21:00; Status UNV Oxybutynin Chloride (Ditropan) 5 mg [id number] PO Last administered on 06/05/17 08:33; Start 06/03/17 at 14:00 Oxycodone/ Acetaminophen (Percocet 5/325) 1 tab PRN Q4HRS PRN PO PAIN Last administered on 06/04/17 22:13; Start 06/03/17 at 12:30 Prednisone (Prednisone) 40 mg DAILY PO Last administered on 06/05/17 08:32; Start 06/03/17 at 14:00 Doxycycline Hyclate (Vibra-Tab) 100 mg BID PO Last administered on 06/05/17 08:32; Start 06/03/17 at 14:00; Stop 06/11/17 at 21:01 Alprazolam (Xanax) 0.5 mg PRN Q8HRS PRN PO ANXIETY / AGITATION Last administered on 06/04/17 09:55; Start 06/03/17 at 16:00 Morphine Sulfate 2 mg PRN Q2HR PRN IV PAIN Last administered on 06/04/17 03: 46; Start 06/04/17 at 03:45; Stop 06/04/17 at 05:59; Status DC Influenza Virus Vaccine Quadrival (Fluarix Quad [id number] Syringe) 0.5 ml ONCE ONCE VAX IM Last administered on 06/04/17 12:26; Start 06/04/17 at 11:00; Stop 06/04/17 at 11:01; Status DC Active Scripts Active Golytely Solution (Peg 3350/Na Sulf,Bicarb,Cl/Kcl) 4,000 Ml Soln.recon 2,000 Ml PO PRN PRN Drink one half jug as needed for constipation. May drink the other half as needed if you do not obtained desired results. Reported Prednisone 20 Mg Tablet 2 Tab PO DAILY Doxycycline Hyclate 100 Mg Capsule 1 Cap PO BID Sucralfate 1 Gm Tablet 1 Tab PO TID Levothyroxine Sodium 150 Mcg Tablet 1 Tab PO DAILY07 Detrol La (Tolterodine Tartrate) 4 Mg Cap.er.24h 1 Cap PO HS Atorvastatin Calcium 40 Mg Tablet 40 Mg PO HS Doxycycline Hyclate 100 Mg Capsule 1 Cap PO BID Yspnllyj-Mscoqyzxp-Mz Ear Susp (Neomycin/Polymyxin B Sulf/Hc) 10 Ml Drops.susp 3 Drop EACH EAR PRN TID Pantoprazole Sodium 40 Mg Tablet.dr 1 Tab PO DAILY Fluticasone Propionate Nasal [place] (Fluticasone Propionate) 16 Gm [place].susp 2 [place] NS DAILY Simvastatin 40 Mg Tablet 40 Gabapentin 300 Mg Capsule 300 Mg PO TID Lyrica (Pregabalin) 150 Mg Capsule 1 Cap PO BID Pepcid (Famotidine) 20 Mg Tablet 20 Mg PO HS Celexa (Citalopram Hydrobromide) 20 Mg Tablet 10 Mg PO BID Vitals/I & O Vital Sign - Last 24 Hours 06/04/17 06/04/17 06/04/17 06/04/17 11:00 15:00 19:00 20:00 Temp 97.2 97.4 98.4 97.2 97.4 98.4 Pulse 71 64 77 Resp 16 16 20 B/P (MAP) 124/59 (80) 132/70 (90) 128/62 (84) Pulse Ox 94 93 90 O2 Delivery Room Air Room Air Room Air Room Air 06/04/17 06/04/17 06/04/17 06/05/17 22:13 23:00 23:13 03:00 Temp 97.9 98.0 97.9 98.0 Pulse 72 61 Resp 20 18 B/P (MAP) 143/75 (97) 144/78 (100) Pulse Ox 95 90 O2 Delivery Room Air Room Air Room Air Nasal [place] 06/05/17 06/05/17 07:00 08:15 Temp 98.5 98.5 Pulse 56 Resp 18 B/P (MAP) 142/76 (98) Pulse Ox 97 O2 Delivery Room Air Room Air NAIF HYLTON MD Jun 05, 2017 10:24
--- NOTE | 2017-06-05 10:57 | PDOC ---
PROGRESS NOTES Subjective Subjective She admits some pain in her upper back area. Objective Objective Vital Signs Date Time Temp Pulse Resp B/P (MAP) Pulse Ox O2 Delivery O2 Flow Rate FiO2 06/05/17 08:15 Room Air 06/05/17 07:00 98.5 56 18 142/76 (98) 97 98.5 Intake and Output 06/05/17 07:00 # Voids 8 Physical Exam Physical Exam She is alert,and remains independent with her mobility and self care,not using any assistive devices. Assessment Assessment Problems Medical Problems: (1) Back pain Status: Acute (2) Ruptured thoracic disc Status: Acute (3) Traumatic compression fracture of T3 thoracic vertebra Status: Acute Plan Plan of Nursing Home when medically stable. Comment Review of Relevant I have reviewed the following items gustavo (where applicable) has been applied. Labs Laboratory Tests Test 06/04/17 04:45 White Blood Count 7.7 x10^3/uL (4.0-11.0) Red Blood Count 4.57 x10^6/uL (3.50-5.40) Hemoglobin 13.0 g/dL (12.0-15.5) Hematocrit 40.1 % (36.0-47.0) Mean Corpuscular Volume 88 fL (79-100) Mean Corpuscular Hemoglobin 28 pg (25-35) Mean Corpuscular Hemoglobin Concent 32 g/dL (31-37) Red Cell Distribution Width 13.5 % (11.5-14.5) Platelet Count 152 x10^3/uL (140-400) Neutrophils (%) (Auto) 89 % (31-73) Lymphocytes (%) (Auto) 7 % (24-48) Monocytes (%) (Auto) 4 % (0-9) Eosinophils (%) (Auto) 0 % (0-3) Basophils (%) (Auto) 0 % (0-3) Neutrophils # (Auto) 6.8 x10^3uL (1.8-7.7) Lymphocytes # (Auto) 0.5 x10^3/uL (1.0-4.8) Monocytes # (Auto) 0.3 x10^3/uL (0.0-1.1) Eosinophils # (Auto) 0.0 x10^3/uL (0.0-0.7) Basophils # (Auto) 0.0 x10^3/uL (0.0-0.2) Segmented Neutrophils % 86 % (35-66) Band Neutrophils % 2 % (0-9) Lymphocytes % 4 % (24-48) Atypical Lymphocytes % (Manual) 3 % (0-0) Monocytes % 5 % (0-10) Platelet Estimate Adequate (ADEQUATE) Sodium Level 138 mmol/L (136-145) Potassium Level 4.9 mmol/L (3.5-5.1) Chloride Level 101 mmol/L (98-107) Carbon Dioxide Level 30 mmol/L (21-32) Anion Gap 7 (6-14) Blood Urea Nitrogen 17 mg/dL (7-20) Creatinine 0.7 mg/dL (0.6-1.0) Estimated GFR (Cockcroft-Gault) 82.5 Glucose Level 233 mg/dL (70-99) Calcium Level 9.7 mg/dL (8.5-10.1) 25-Hydroxy Vitamin D Total 25.9 ng/mL (30-100) Medications Current Medications Ondansetron HCl (Zofran) 4 mg PRN Q8HRS PRN IV NAUSEA/VOMITING Last administered on 06/03/17 06:42; Start 06/03/17 at 06:00; Stop 06/03/17 at 12 :28; Status DC Morphine Sulfate 2 mg PRN Q2HR PRN IV PAIN Last administered on 06/03/17 12: 11; Start 06/03/17 at 06:00; Stop 06/04/17 at 03:41; Status DC Sodium Chloride 1,000 ml @ 125 mls/hr Q8H IV Last administered on 06/03/17 13:35; Start 06/03/17 at 06:00; Stop 06/04/17 at 05:59; Status DC Ondansetron HCl (Zofran) 4 mg PRN Q6HRS PRN IV NAUSEA/VOMITING; Start at 12:30; Stop 06/04/17 at 12:29; Status DC Labetalol HCl (Normodyne) 10 mg PRN Q2HR PRN IVP HYPERTENSION, SEE COMMENTS; Start 06/03/17 at 12:30 Atorvastatin Calcium (Lipitor) 40 mg HS PO Last administered on 06/04/17 21: 20; Start 06/03/17 at 21:00 Citalopram Hydrobromide (CeleXA) 10 mg BID PO Last administered on 06/05/17 08:32; Start 06/03/17 at 13:00 Famotidine (Pepcid) 20 mg HS PO Last administered on 06/04/17 21:20; Start 06/03/17 at 21:00 Fluticasone Propionate (Flonase) 2 spray DAILY NS Last administered on 08:33; Start 06/03/17 at 13:00 Levothyroxine Sodium (Synthroid) 150 mcg DAILY07 PO Last administered on 06:18; Start 06/03/17 at 13:00 Neomycin/ Polymyxin/ Hydrocortisone (Cortisporin Otic) 3 drop PRN TID PRN AU EYE INFECTION; Start 06/03/17 at 12:30 Pantoprazole Sodium (Protonix) 40 mg DAILYAC PO Last administered on 06:18; Start 06/03/17 at 13:00 Polyethylene Glycol (miraLAX PACKET) 17 gm PRN DAILY PRN PO CONSTIPATION; Start 06/04/17 at 09:00 Simvastatin (Zocor) 40 mg QHS PO ; Start 06/03/17 at 21:00; Status UNV Sucralfate (Carafate) 1 gm TIDWMEALS PO Last administered on 06/05/17 08:32; Start 06/03/17 at 15:00 Gabapentin (Neurontin) 300 mg TID PO Last administered on 06/05/17 08:33; Start 06/03/17 at 14:00 Non-Formulary Medication 1 cap BID PO ; Start 06/03/17 at 21:00; Status UNV Oxybutynin Chloride (Ditropan) 5 mg [id number] PO Last administered on 06/05/17 08:33; Start 06/03/17 at 14:00 Oxycodone/ Acetaminophen (Percocet 5/325) 1 tab PRN Q4HRS PRN PO PAIN Last administered on 06/04/17 22:13; Start 06/03/17 at 12:30 Prednisone (Prednisone) 40 mg DAILY PO Last administered on 06/05/17 08:32; Start 06/03/17 at 14:00 Doxycycline Hyclate (Vibra-Tab) 100 mg BID PO Last administered on 06/05/17 08:32; Start 06/03/17 at 14:00; Stop 06/11/17 at 21:01 Alprazolam (Xanax) 0.5 mg PRN Q8HRS PRN PO ANXIETY / AGITATION Last administered on 06/04/17 09:55; Start 06/03/17 at 16:00 Morphine Sulfate 2 mg PRN Q2HR PRN IV PAIN Last administered on 06/04/17 03: 46; Start 06/04/17 at 03:45; Stop 06/04/17 at 05:59; Status DC Influenza Virus Vaccine Quadrival (Fluarix Quad 0333-6168 Syringe) 0.5 ml ONCE ONCE VAX IM Last administered on 06/04/17 12:26; Start 06/04/17 at 11:00; Stop 06/04/17 at 11:01; Status DC Active Scripts Active Golytely Solution (Peg 3350/Na Sulf,Bicarb,Cl/Kcl) 4,000 Ml Soln.recon 2,000 Ml PO PRN PRN Drink one half jug as needed for constipation. May drink the other half as needed if you do not obtained desired results. Reported Prednisone 20 Mg Tablet 2 Tab PO DAILY Doxycycline Hyclate 100 Mg Capsule 1 Cap PO BID Sucralfate 1 Gm Tablet 1 Tab PO TID Levothyroxine Sodium 150 Mcg Tablet 1 Tab PO DAILY07 Detrol La (Tolterodine Tartrate) 4 Mg Cap.er.24h 1 Cap PO HS Atorvastatin Calcium 40 Mg Tablet 40 Mg PO HS Doxycycline Hyclate 100 Mg Capsule 1 Cap PO BID Hnnwnxus-Ysekqhclm-Tc Ear Susp (Neomycin/Polymyxin B Sulf/Hc) 10 Ml Drops.susp 3 Drop EACH EAR PRN TID Pantoprazole Sodium 40 Mg Tablet.dr 1 Tab PO DAILY Fluticasone Propionate Nasal Roberta (Fluticasone Propionate) 16 Gm Roberta.susp 2 Roberta NS DAILY Simvastatin 40 Mg Tablet 40 Gabapentin 300 Mg Capsule 300 Mg PO TID Lyrica (Pregabalin) 150 Mg Capsule 1 Cap PO BID Pepcid (Famotidine) 20 Mg Tablet 20 Mg PO HS Celexa (Citalopram Hydrobromide) 20 Mg Tablet 10 Mg PO BID Vitals/I & O Vital Sign - Last 24 Hours 06/04/17 06/04/17 06/04/17/22/17 11:00 15:00 19:00 20:00 Temp 97.2 97.4 98.4 97.2 97.4 98.4 Pulse 71 64 77 Resp 16 16 20 B/P (MAP) 124/59 (80) 132/70 (90) 128/62 (84) Pulse Ox 94 93 90 O2 Delivery Room Air Room Air Room Air Room Air 06/04/17 06/04/17 06/04/17 06/05/17 22:13 23:00 23:13 03:00 Temp 97.9 98.0 97.9 98.0 Pulse 72 61 Resp 20 18 B/P (MAP) 143/75 (97) 144/78 (100) Pulse Ox 95 90 O2 Delivery Room Air Room Air Room Air Nasal Cannula 06/05/17 06/05/17 07:00 08:15 Temp 98.5 98.5 Pulse 56 Resp 18 B/P (MAP) 142/76 (98) Pulse Ox 97 O2 Delivery Room Air Room Air KENYETTA FLANAGAN MD Jun 05, 2017 10:57
[2017-06-05 11:00] VITALS: BP 146/71
[2017-06-05] MEDS: oxyCODONE/APAP 5/325 1 TAB TABLET PO PRN (12:42)
[2017-06-05 15:00] VITALS: BP 156/68
[2017-06-05] MEDS: ALPRAZolam 0.5 MG TABLET PO PRN (16:20)
[2017-06-05 19:00] VITALS: BP 140/63
[2017-06-05] MEDS: LACTOBACILLUS RHAMNOSUS GG 1 CAPSULE. PO SCH (20:30)
[2017-06-05] MEDS: FAMOTIDINE 20 MG TABLET. PO SCH (20:30)
[2017-06-05] MEDS: ATORVASTATIN CALCIUM 40 MG TABLET. PO SCH (20:31)
[2017-06-05 23:00] VITALS: BP 151/76
[2017-06-06] MEDS: oxyCODONE/APAP 5/325 1 TAB TABLET PO PRN ×3 (00:36→21:35)
[2017-06-06] MEDS: ALPRAZolam 0.5 MG TABLET PO PRN (02:14)
[2017-06-06 03:00] VITALS: BP 161/71
[2017-06-06] MEDS: LEVOTHYROXINE 150 MCG TABLET PO SCH (06:37)
[2017-06-06] MEDS: PANTOPRAZOLE 40 MG TABLET.DR. PO SCH (06:37)
[2017-06-06 07:00] VITALS: BP 136/80
[2017-06-06] MEDS ORDERED: hydrALAZINE 20 MG/ML VIAL. IVP PRN (08:45)
[2017-06-06] MEDS: CITALOPRAM 10 MG TABLET. PO SCH ×2 (09:06→21:33)
[2017-06-06] MEDS: OXYBUTYNIN CHLORIDE 5 MG TABLET PO SCH ×3 (09:06→21:34)
[2017-06-06] MEDS: SUCRALFATE 1 GM TABLET. PO SCH ×3 (09:06→17:28)
[2017-06-06] MEDS: predniSONE 20 MG TABLET PO SCH (09:07)
[2017-06-06] MEDS: DOXYCYCLINE HYCLATE 100 MG TABLET PO SCH ×2 (09:07→21:34)
[2017-06-06] MEDS: LACTOBACILLUS RHAMNOSUS GG 1 CAPSULE. PO SCH ×2 (09:07→21:34)
[2017-06-06] MEDS: GABAPENTIN 300 MG CAPSULE. PO SCH ×3 (09:07→21:33)
[2017-06-06] MEDS: FLUTICASONE 50MCG/NASAL SPRAY 16GM BOTTLE. NS SCH (09:08)
--- NOTE | 2017-06-06 09:52 | PDOC ---
PROGRESS NOTES Subjective Subjective She admits continued upper back pain and cervical and thoracic brace is helping. Objective Objective Vital Signs Date Time Temp Pulse Resp B/P (MAP) Pulse Ox O2 Delivery O2 Flow Rate FiO2 06/06/17 09:06 Room Air 06/06/17 07:00 97.5 60 16 136/80 (98) 97 97.5 Intake and Output 06/06/17 07:00 Intake Total 240 ml Balance 240 ml Intake Oral 240 ml # Voids 6 Physical Exam Physical Exam She is alert and comfortable and she needs assistance with donning and doffing of her brace.Once up she remains independent with her mobility and self care. Assessment Assessment Problems Medical Problems: (1) Back pain Status: Acute (2) Ruptured thoracic disc Status: Acute (3) Traumatic compression fracture of T3 thoracic vertebra Status: Acute Plan Plan of [facility]-Way when medically stable. Comment Review of Relevant I have reviewed the following items gustavo (where applicable) has been applied. Medications Current Medications Ondansetron HCl (Zofran) 4 mg PRN Q8HRS PRN IV NAUSEA/VOMITING Last administered on 06/03/17 06:42; Start 06/03/17 at 06:00; Stop 06/03/17 at 12 :28; Status DC Morphine Sulfate 2 mg PRN Q2HR PRN IV PAIN Last administered on 06/03/17 12: 11; Start 06/03/17 at 06:00; Stop 06/04/17 at 03:41; Status DC Sodium Chloride 1,000 ml @ 125 mls/hr Q8H IV Last administered on 06/03/17 13:35; Start 06/03/17 at 06:00; Stop 06/04/17 at 05:59; Status DC Ondansetron HCl (Zofran) 4 mg PRN Q6HRS PRN IV NAUSEA/VOMITING; Start at 12:30; Stop 06/04/17 at 12:29; Status DC Labetalol HCl (Normodyne) 10 mg PRN Q2HR PRN IVP HYPERTENSION, SEE COMMENTS; Start 06/03/17 at 12:30; Stop 06/06/17 at 08:43; Status DC Atorvastatin Calcium (Lipitor) 40 mg HS PO Last administered on 06/05/17 20: 31; Start 06/03/17 at 21:00 Citalopram Hydrobromide (CeleXA) 10 mg BID PO Last administered on 06/06/17 09:06; Start 06/03/17 at 13:00 Famotidine (Pepcid) 20 mg HS PO Last administered on 06/05/17 20:30; Start 06/03/17 at 21:00 Fluticasone Propionate (Flonase) 2 spray DAILY NS Last administered on 09:08; Start 06/03/17 at 13:00 Levothyroxine Sodium (Synthroid) 150 mcg DAILY07 PO Last administered on 06:37; Start 06/03/17 at 13:00 Neomycin/ Polymyxin/ Hydrocortisone (Cortisporin Otic) 3 drop PRN TID PRN AU EYE INFECTION; Start 06/03/17 at 12:30 Pantoprazole Sodium (Protonix) 40 mg DAILYAC PO Last administered on 06:37; Start 06/03/17 at 13:00 Polyethylene Glycol (miraLAX PACKET) 17 gm PRN DAILY PRN PO CONSTIPATION; Start 06/04/17 at 09:00 Simvastatin (Zocor) 40 mg QHS PO ; Start 06/03/17 at 21:00; Status UNV Sucralfate (Carafate) 1 gm TIDWMEALS PO Last administered on 06/06/17 09:06; Start 06/03/17 at 15:00 Gabapentin (Neurontin) 300 mg TID PO Last administered on 06/06/17 09:07; Start 06/03/17 at 14:00 Non-Formulary Medication 1 cap BID PO ; Start 06/03/17 at 21:00; Status UNV Oxybutynin Chloride (Ditropan) 5 mg [id number] PO Last administered on 06/06/17 09:06; Start 06/03/17 at 14:00 Oxycodone/ Acetaminophen (Percocet 5/325) 1 tab PRN Q4HRS PRN PO PAIN Last administered on 06/06/17 09:06; Start 06/03/17 at 12:30 Prednisone (Prednisone) 40 mg DAILY PO Last administered on 06/06/17 09:07; Start 06/03/17 at 14:00 Doxycycline Hyclate (Vibra-Tab) 100 mg BID PO Last administered on 06/06/17 09:07; Start 06/03/17 at 14:00; Stop 06/11/17 at 21:01 Alprazolam (Xanax) 0.5 mg PRN Q8HRS PRN PO ANXIETY / AGITATION Last administered on 06/06/17 02:14; Start 06/03/17 at 16:00 Morphine Sulfate 2 mg PRN Q2HR PRN IV PAIN Last administered on 06/04/17 03: 46; Start 06/04/17 at 03:45; Stop 06/04/17 at 05:59; Status DC Influenza Virus Vaccine Quadrival (Fluarix Quad 3406-3477 Syringe) 0.5 ml ONCE ONCE VAX IM Last administered on 06/04/17 12:26; Start 06/04/17 at 11:00; Stop 06/04/17 at 11:01; Status DC Lactobacillus Rhamnosus (Culturelle) 1 cap BID PO Last administered on 09:07; Start 06/05/17 at 21:00 Hydralazine HCl (Apresoline Inj) 10 mg PRN Q4HRS PRN IVP ELEVATED BP, SEE COMMENTS; Start 06/06/17 at 08:45 Active Scripts Active Golytely Solution (Peg 3350/Na Sulf,Bicarb,Cl/Kcl) 4,000 Ml Soln.recon 2,000 Ml PO PRN PRN Drink one half jug as needed for constipation. May drink the other half as needed if you do not obtained desired results. Reported Prednisone 20 Mg Tablet 2 Tab PO DAILY Doxycycline Hyclate 100 Mg Capsule 1 Cap PO BID Sucralfate 1 Gm Tablet 1 Tab PO TID Levothyroxine Sodium 150 Mcg Tablet 1 Tab PO DAILY07 Detrol La (Tolterodine Tartrate) 4 Mg Cap.er.24h 1 Cap PO HS Atorvastatin Calcium 40 Mg Tablet 40 Mg PO HS Doxycycline Hyclate 100 Mg Capsule 1 Cap PO BID Twlmufdc-Eimqqdsdu-Uy Ear Susp (Neomycin/Polymyxin B Sulf/Hc) 10 Ml Drops.susp 3 Drop EACH EAR PRN TID Pantoprazole Sodium 40 Mg Tablet.dr 1 Tab PO DAILY Fluticasone Propionate Nasal Flushing (Fluticasone Propionate) 16 Gm Flushing.susp 2 Flushing NS DAILY Simvastatin 40 Mg Tablet 40 Gabapentin 300 Mg Capsule 300 Mg PO TID Lyrica (Pregabalin) 150 Mg Capsule 1 Cap PO BID Pepcid (Famotidine) 20 Mg Tablet 20 Mg PO HS Celexa (Citalopram Hydrobromide) 20 Mg Tablet 10 Mg PO BID Vitals/I & O Vital Sign - Last 24 Hours 06/05/17 06/05/17 06/05/17 06/05/17 11:00 12:42 15:00 19:00 Temp 97.5 97.9 97.5 97.5 97.9 97.5 Pulse 60 66 80 Resp 18 18 18 B/P (MAP) 146/71 (96) 156/68 (97) 140/63 (88) Pulse Ox 95 97 91 O2 Delivery Room Air Room Air Room Air Room Air 06/05/17 06/05/17 06/06/17 06/06/17 20:20 23:00 00:36 01:41 Temp 97.5 97.5 Pulse 64 Resp 18 18 18 B/P (MAP) 151/76 (101) Pulse Ox 96 O2 Delivery Room Air Room Air Room Air Room Air 06/06/17 06/06/17 06/06/17 03:00 07:00 09:06 Temp 97.9 97.5 97.9 97.5 Pulse 59 60 Resp 18 16 B/P (MAP) 161/71 (101) 136/80 (98) Pulse Ox 96 97 O2 Delivery Room Air Room Air Room Air Intake and Output 06/05/17 06/05/17 06/06/17 15:00 23:00 07:00 Intake Total 240 ml Balance 240 ml KENYETTA FLANAGAN MD Jun 06, 2017 09:52
[2017-06-06 11:00] VITALS: BP 143/83
--- NOTE | 2017-06-06 11:34 | PDOC ---
PROGRESS NOTES Chief Complaint Chief Complaint 1. T3 compression fx with some minor disc bulge and bone spurs 2, DJD 3. HTN GERD, COnstipation possible osteoporisos per hx? 4. MEchanical fall 5. Gen weakness 6. anorexia 7. 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 Agreeable to SNU PLAN: IVF x 1 L STart ergocalciferol qweekly x 12 weeks NUtirtion conuslt - would recommend BOost drink or protein shakes, very thin dw RN Walter Vitals Vitals Vital Signs Date Time Temp Pulse Resp B/P (MAP) Pulse Ox O2 Delivery O2 Flow Rate FiO2 06/06/17 11:00 97.1 80 16 143/83 (103) 97 Room Air 97.1 Physical Exam General: Alert, Oriented X3, Cooperative, No acute distress Lungs: Clear Abdomen: Normal bowel sounds, Soft, No tenderness, No hepatosplenomegaly, No masses Extremities: No clubbing, No cyanosis, No edema, Normal pulses, No tenderness/ swelling Skin: No rashes, No breakdown, No significant lesion Review of Systems Review of Systems weak, back pain, thin, no soa, cp or abd pain, or diarrhea Assessment and Plan Assessmemt and Plan Problems Medical Problems: (1) Back pain Status: Acute (2) Ruptured thoracic disc Status: Acute (3) Traumatic compression fracture of T3 thoracic vertebra Status: Acute Problems: Comment Review of Relevant I have reviewed the following items gustavo (where applicable) has been applied. Medications Current Medications Ondansetron HCl (Zofran) 4 mg PRN Q8HRS PRN IV NAUSEA/VOMITING Last administered on 06/03/17 06:42; Start 06/03/17 at 06:00; Stop 06/03/17 at 12 :28; Status DC Morphine Sulfate 2 mg PRN Q2HR PRN IV PAIN Last administered on 06/03/17 12: 11; Start 06/03/17 at 06:00; Stop 06/04/17 at 03:41; Status DC Sodium Chloride 1,000 ml @ 125 mls/hr Q8H IV Last administered on 06/03/17 13:35; Start 06/03/17 at 06:00; Stop 06/04/17 at 05:59; Status DC Ondansetron HCl (Zofran) 4 mg PRN Q6HRS PRN IV NAUSEA/VOMITING; Start at 12:30; Stop 06/04/17 at 12:29; Status DC Labetalol HCl (Normodyne) 10 mg PRN Q2HR PRN IVP HYPERTENSION, SEE COMMENTS; Start 06/03/17 at 12:30; Stop 06/06/17 at 08:43; Status DC Atorvastatin Calcium (Lipitor) 40 mg HS PO Last administered on 06/05/17 20: 31; Start 06/03/17 at 21:00 Citalopram Hydrobromide (CeleXA) 10 mg BID PO Last administered on 06/06/17 09:06; Start 06/03/17 at 13:00 Famotidine (Pepcid) 20 mg HS PO Last administered on 06/05/17 20:30; Start 06/03/17 at 21:00 Fluticasone Propionate (Flonase) 2 spray DAILY NS Last administered on 09:08; Start 06/03/17 at 13:00 Levothyroxine Sodium (Synthroid) 150 mcg DAILY07 PO Last administered on 06:37; Start 06/03/17 at 13:00 Neomycin/ Polymyxin/ Hydrocortisone (Cortisporin Otic) 3 drop PRN TID PRN AU EYE INFECTION; Start 06/03/17 at 12:30 Pantoprazole Sodium (Protonix) 40 mg DAILYAC PO Last administered on 06:37; Start 06/03/17 at 13:00 Polyethylene Glycol (miraLAX PACKET) 17 gm PRN DAILY PRN PO CONSTIPATION; Start 06/04/17 at 09:00 Simvastatin (Zocor) 40 mg QHS PO ; Start 06/03/17 at 21:00; Status UNV Sucralfate (Carafate) 1 gm TIDWMEALS PO Last administered on 06/06/17 09:06; Start 06/03/17 at 15:00 Gabapentin (Neurontin) 300 mg TID PO Last administered on 06/06/17 09:07; Start 06/03/17 at 14:00 Non-Formulary Medication 1 cap BID PO ; Start 06/03/17 at 21:00; Status UNV Oxybutynin Chloride (Ditropan) 5 mg [id number] PO Last administered on 06/06/17 09:06; Start 06/03/17 at 14:00 Oxycodone/ Acetaminophen (Percocet 5/325) 1 tab PRN Q4HRS PRN PO PAIN Last administered on 06/06/17 09:06; Start 06/03/17 at 12:30 Prednisone (Prednisone) 40 mg DAILY PO Last administered on 06/06/17 09:07; Start 06/03/17 at 14:00 Doxycycline Hyclate (Vibra-Tab) 100 mg BID PO Last administered on 06/06/17 09:07; Start 06/03/17 at 14:00; Stop 06/11/17 at 21:01 Alprazolam (Xanax) 0.5 mg PRN Q8HRS PRN PO ANXIETY / AGITATION Last administered on 06/06/17 02:14; Start 06/03/17 at 16:00 Morphine Sulfate 2 mg PRN Q2HR PRN IV PAIN Last administered on 06/04/17 03: 46; Start 06/04/17 at 03:45; Stop 06/04/17 at 05:59; Status DC Influenza Virus Vaccine Quadrival (Fluarix Quad [id number] Syringe) 0.5 ml ONCE ONCE VAX IM Last administered on 06/04/17 12:26; Start 06/04/17 at 11:00; Stop 06/04/17 at 11:01; Status DC Lactobacillus Rhamnosus (Culturelle) 1 cap BID PO Last administered on 09:07; Start 06/05/17 at 21:00 Hydralazine HCl (Apresoline Inj) 10 mg PRN Q4HRS PRN IVP ELEVATED BP, SEE COMMENTS; Start 06/06/17 at 08:45 Active Scripts Active Golytely Solution (Peg 3350/Na Sulf,Bicarb,Cl/Kcl) 4,000 Ml Soln.recon 2,000 Ml PO PRN PRN Drink one half jug as needed for constipation. May drink the other half as needed if you do not obtained desired results. Reported Prednisone 20 Mg Tablet 2 Tab PO DAILY Doxycycline Hyclate 100 Mg Capsule 1 Cap PO BID Sucralfate 1 Gm Tablet 1 Tab PO TID Levothyroxine Sodium 150 Mcg Tablet 1 Tab PO DAILY07 Detrol La (Tolterodine Tartrate) 4 Mg Cap.er.24h 1 Cap PO HS Atorvastatin Calcium 40 Mg Tablet 40 Mg PO HS Doxycycline Hyclate 100 Mg Capsule 1 Cap PO BID Qguphygt-Jaelupjba-Wh Ear Susp (Neomycin/Polymyxin B Sulf/Hc) 10 Ml Drops.susp 3 Drop EACH EAR PRN TID Pantoprazole Sodium 40 Mg Tablet.dr 1 Tab PO DAILY Fluticasone Propionate Nasal Cadott (Fluticasone Propionate) 16 Gm Cadott.susp 2 [place] NS DAILY Simvastatin 40 Mg Tablet 40 Gabapentin 300 Mg Capsule 300 Mg PO TID Lyrica (Pregabalin) 150 Mg Capsule 1 Cap PO BID Pepcid (Famotidine) 20 Mg Tablet 20 Mg PO HS Celexa (Citalopram Hydrobromide) 20 Mg Tablet 10 Mg PO BID Vitals/I & O Vital Sign - Last 24 Hours 06/05/17 06/05/17 06/05/17 06/05/17 12:42 15:00 19:00 20:20 Temp 97.9 97.5 97.9 97.5 Pulse 66 80 Resp 18 18 B/P (MAP) 156/68 (97) 140/63 (88) Pulse Ox 97 91 O2 Delivery Room Air Room Air Room Air Room Air 06/05/17 06/06/17 06/06/17 06/06/17 23:00 00:36 01:41 03:00 Temp 97.5 97.9 97.5 97.9 Pulse 64 59 Resp 18 18 18 18 B/P (MAP) 151/76 (101) 161/71 (101) Pulse Ox 96 96 O2 Delivery Room Air Room Air Room Air 06/06/17 06/06/17 06/06/17 06/06/17 07:00 08:10 09:06 10:10 Temp 97.5 97.5 Pulse 60 Resp 16 B/P (MAP) 136/80 (98) Pulse Ox 97 97 O2 Delivery Room Air Room Air Room Air Room Air 06/06/17 11:00 Temp 97.1 97.1 Pulse 80 Resp 16 B/P (MAP) 143/83 (103) Pulse Ox 97 O2 Delivery Room Air Intake and Output 06/05/17 06/05/17 06/06/17 15:00 23:00 07:00 Intake Total 240 ml Balance 240 ml TERMULO,NAIF Y MD Jun 06, 2017 11:34
[2017-06-06] MEDS ORDERED: IV DEXTROSE 5 %-0.45 % NACL 1,000 ML IV ONE (12:00)
[2017-06-06] MEDS ORDERED: ERGOCALCIFEROL (VITAMIN D2) 50,000 UNIT CAPSULE. PO SCH (12:00)
[2017-06-06 15:00] VITALS: BP 142/78
[2017-06-06 19:00] VITALS: BP 121/53
[2017-06-06] MEDS: ATORVASTATIN CALCIUM 40 MG TABLET. PO SCH (21:34)
[2017-06-06] MEDS: FAMOTIDINE 20 MG TABLET. PO SCH (21:34)
[2017-06-06 23:00] VITALS: BP 132/64
[2017-06-07 03:00] VITALS: BP 131/71
[2017-06-07] MEDS: oxyCODONE/APAP 5/325 1 TAB TABLET PO PRN ×2 (03:08→08:57)
[2017-06-07 07:00] VITALS: BP 131/67
[2017-06-07 08:31] VITALS: BP 131/67
[2017-06-07] MEDS: predniSONE 20 MG TABLET PO SCH (08:57)
[2017-06-07] MEDS: FLUTICASONE 50MCG/NASAL SPRAY 16GM BOTTLE. NS SCH (08:57)
[2017-06-07] MEDS: DOXYCYCLINE HYCLATE 100 MG TABLET PO SCH (08:57)
[2017-06-07] MEDS: LACTOBACILLUS RHAMNOSUS GG 1 CAPSULE. PO SCH (08:57)
[2017-06-07] MEDS: OXYBUTYNIN CHLORIDE 5 MG TABLET PO SCH ×2 (08:57→12:41)
[2017-06-07] MEDS: PANTOPRAZOLE 40 MG TABLET.DR. PO SCH (08:58)
[2017-06-07] MEDS: GABAPENTIN 300 MG CAPSULE. PO SCH ×2 (08:58→12:41)
[2017-06-07] MEDS: CITALOPRAM 10 MG TABLET. PO SCH (08:58)
[2017-06-07] MEDS: SUCRALFATE 1 GM TABLET. PO SCH ×2 (08:58→12:41)
[2017-06-07] MEDS: LEVOTHYROXINE 150 MCG TABLET PO SCH (08:58)
--- NOTE | 2017-06-07 09:44 | PDOC ---
PROGRESS NOTES Subjective Subjective No new complaints. Objective Objective Vital Signs Date Time Temp Pulse Resp B/P (MAP) Pulse Ox O2 Delivery O2 Flow Rate FiO2 06/07/17 08:57 Room Air 06/07/17 08:31 98.8 66 16 131/67 (88) 94 98.8 Intake and Output 06/07/17 07:00 Intake Total 1432 ml Output Total 250 ml Balance 1182 ml Intake Oral 450 ml IV Total 982 ml Output Urine Total 250 ml # Voids 4 # Bowel Movements 1 Physical Exam Physical Exam She remains independent with mobility but still admits some upper back area pain.She still needs some help with donning and doffing of her brace. Assessment Assessment Problems Medical Problems: (1) Back pain Status: Acute (2) Ruptured thoracic disc Status: Acute (3) Traumatic compression fracture of T3 thoracic vertebra Status: Acute Plan Plan of Custodial when medically stable. Comment Review of Relevant I have reviewed the following items gustavo (where applicable) has been applied. Medications Current Medications Ondansetron HCl (Zofran) 4 mg PRN Q8HRS PRN IV NAUSEA/VOMITING Last administered on 06/03/17 06:42; Start 06/03/17 at 06:00; Stop 06/03/17 at 12 :28; Status DC Morphine Sulfate 2 mg PRN Q2HR PRN IV PAIN Last administered on 06/03/17 12: 11; Start 06/03/17 at 06:00; Stop 06/04/17 at 03:41; Status DC Sodium Chloride 1,000 ml @ 125 mls/hr Q8H IV Last administered on 06/03/17 13:35; Start 06/03/17 at 06:00; Stop 06/04/17 at 05:59; Status DC Ondansetron HCl (Zofran) 4 mg PRN Q6HRS PRN IV NAUSEA/VOMITING; Start at 12:30; Stop 06/04/17 at 12:29; Status DC Labetalol HCl (Normodyne) 10 mg PRN Q2HR PRN IVP HYPERTENSION, SEE COMMENTS; Start 06/03/17 at 12:30; Stop 06/06/17 at 08:43; Status DC Atorvastatin Calcium (Lipitor) 40 mg HS PO Last administered on 06/06/17 21: 34; Start 06/03/17 at 21:00 Citalopram Hydrobromide (CeleXA) 10 mg BID PO Last administered on 06/07/17 08:58; Start 06/03/17 at 13:00 Famotidine (Pepcid) 20 mg HS PO Last administered on 06/06/17 21:34; Start 06/03/17 at 21:00 Fluticasone Propionate (Flonase) 2 spray DAILY NS Last administered on 08:57; Start 06/03/17 at 13:00 Levothyroxine Sodium (Synthroid) 150 mcg DAILY07 PO Last administered on 08:58; Start 06/03/17 at 13:00 Neomycin/ Polymyxin/ Hydrocortisone (Cortisporin Otic) 3 drop PRN TID PRN AU EYE INFECTION; Start 06/03/17 at 12:30 Pantoprazole Sodium (Protonix) 40 mg DAILYAC PO Last administered on 08:58; Start 06/03/17 at 13:00 Polyethylene Glycol (miraLAX PACKET) 17 gm PRN DAILY PRN PO CONSTIPATION; Start 06/04/17 at 09:00 Simvastatin (Zocor) 40 mg QHS PO ; Start 06/03/17 at 21:00; Status UNV Sucralfate (Carafate) 1 gm TIDWMEALS PO Last administered on 06/07/17 08:58; Start 06/03/17 at 15:00 Gabapentin (Neurontin) 300 mg TID PO Last administered on 06/07/17 08:58; Start 06/03/17 at 14:00 Non-Formulary Medication 1 cap BID PO ; Start 06/03/17 at 21:00; Status UNV Oxybutynin Chloride (Ditropan) 5 mg [id number] PO Last administered on 06/07/17 08:57; Start 06/03/17 at 14:00 Oxycodone/ Acetaminophen (Percocet 5/325) 1 tab PRN Q4HRS PRN PO PAIN Last administered on 06/07/17 08:57; Start 06/03/17 at 12:30 Prednisone (Prednisone) 40 mg DAILY PO Last administered on 06/07/17 08:57; Start 06/03/17 at 14:00 Doxycycline Hyclate (Vibra-Tab) 100 mg BID PO Last administered on 06/07/17 08:57; Start 06/03/17 at 14:00; Stop 06/11/17 at 21:01 Alprazolam (Xanax) 0.5 mg PRN Q8HRS PRN PO ANXIETY / AGITATION Last administered on 06/06/17 02:14; Start 06/03/17 at 16:00 Morphine Sulfate 2 mg PRN Q2HR PRN IV PAIN Last administered on 06/04/17 03: 46; Start 06/04/17 at 03:45; Stop 06/04/17 at 05:59; Status DC Influenza Virus Vaccine Quadrival (Fluarix Quad [id number] Syringe) 0.5 ml ONCE ONCE VAX IM Last administered on 06/04/17 12:26; Start 06/04/17 at 11:00; Stop 06/04/17 at 11:01; Status DC Lactobacillus Rhamnosus (Culturelle) 1 cap BID PO Last administered on 08:57; Start 06/05/17 at 21:00 Hydralazine HCl (Apresoline Inj) 10 mg PRN Q4HRS PRN IVP ELEVATED BP, SEE COMMENTS; Start 06/06/17 at 08:45 Dextrose/Sodium Chloride 1,000 ml @ 100 mls/hr 1X ONCE IV Last administered on 06/06/17 13:11; Start 06/06/17 at 12:00; Stop 06/06/17 at 21:59; Status DC Ergocalciferol (Vitamin D2) 50,000 unit WEEKLY PO Last administered on 13:11; Start 06/06/17 at 12:00 Active Scripts Active Golytely Solution (Peg 3350/Na Sulf,Bicarb,Cl/Kcl) 4,000 Ml Soln.recon 2,000 Ml PO PRN PRN Drink one half jug as needed for constipation. May drink the other half as needed if you do not obtained desired results. Reported Prednisone 20 Mg Tablet 2 Tab PO DAILY Doxycycline Hyclate 100 Mg Capsule 1 Cap PO BID Sucralfate 1 Gm Tablet 1 Tab PO TID Levothyroxine Sodium 150 Mcg Tablet 1 Tab PO DAILY07 Detrol La (Tolterodine Tartrate) 4 Mg Cap.er.24h 1 Cap PO HS Atorvastatin Calcium 40 Mg Tablet 40 Mg PO HS Doxycycline Hyclate 100 Mg Capsule 1 Cap PO BID [id number] Ear Susp (Neomycin/Polymyxin B Sulf/Hc) 10 Ml Drops.susp 3 Drop EACH EAR PRN TID Pantoprazole Sodium 40 Mg Tablet.dr 1 Tab PO DAILY Fluticasone Propionate Nasal Celina (Fluticasone Propionate) 16 Gm Celina.susp 2 Celina NS DAILY Simvastatin 40 Mg Tablet 40 Gabapentin 300 Mg Capsule 300 Mg PO TID Lyrica (Pregabalin) 150 Mg Capsule 1 Cap PO BID Pepcid (Famotidine) 20 Mg Tablet 20 Mg PO HS Celexa (Citalopram Hydrobromide) 20 Mg Tablet 10 Mg PO BID Vitals/I & O Vital Sign - Last 24 Hours 06/06/17 06/06/17 06/06/17 06/06/17 10:10 11:00 15:00 19:00 Temp 97.1 98.6 97.7 97.1 98.6 97.7 Pulse 80 83 76 Resp 16 16 16 B/P (MAP) 143/83 (103) 142/78 (99) 121/53 (75) Pulse Ox 97 97 94 96 O2 Delivery Room Air Room Air Room Air 06/06/17 06/06/17 06/06/17 06/06/17 20:10 21:35 22:32 23:00 Temp 97.9 97.9 Pulse 71 Resp 20 16 16 B/P (MAP) 132/64 (86) Pulse Ox 96 93 O2 Delivery Room Air Room Air Room Air 06/07/17 06/07/17 06/07/17 06/07/17 03:00 03:08 04:10 08:31 Temp 97.7 98.8 97.7 98.8 Pulse 67 66 Resp 16 18 16 B/P (MAP) 131/71 (91) 131/67 (88) Pulse Ox 95 93 94 O2 Delivery Room Air Room Air Room Air 06/07/17 08:57 O2 Delivery Room Air Intake and Output 06/06/17 06/06/17 06/07/17 15:00 23:00 07:00 Intake Total 1432 ml Output Total 250 ml Balance 1182 ml KENYETTA FLANAGAN MD Jun 07, 2017 09:44
[2017-06-07] MEDS ORDERED: BISACODYL 5 MG TABLET.DR. PO PRN (09:45)
[2017-06-07] MEDS ORDERED: MAGNESIUM HYDROXIDE 2,400 MG/30 ML ORAL.SUSP. PO PRN (09:45)
--- NOTE | 2017-06-07 11:05 | PDOC ---
PROGRESS NOTES Chief Complaint Chief Complaint 1. T3 compression fx with some minor disc bulge and bone spurs 2, DJD 3. HTN GERD, COnstipation possible osteoporisos per hx? 4. MEchanical fall 5. Gen weakness 6. anorexia 7. Vit D def History of Present Illness History of Present Illness Pt AAO x3, expressed does not want to be DC, no reason Admits Persistent Pain Thoracic spine Not wearing Back Brace Needs to participate PT/OT DW Nurse Vitals Vitals Vital Signs Date Time Temp Pulse Resp B/P (MAP) Pulse Ox O2 Delivery O2 Flow Rate FiO2 06/07/17 10:41 Room Air 06/07/17 08:31 98.8 66 16 131/67 (88) 94 98.8 Physical Exam General: Alert, Oriented X3, Cooperative, No acute distress Heart: Regular rate, Normal S1 Lungs: Clear, Other (No wheezing) Abdomen: Normal bowel sounds, Soft, No tenderness, No hepatosplenomegaly, No masses Extremities: No clubbing, No cyanosis, No edema, Normal pulses, No tenderness/ swelling Skin: No rashes, No breakdown, No significant lesion Review of Systems Review of Systems General: No Fatigue, Hunger, Admits Pain(Thoracic) CV: No Chest Pain, Palpitations Assessment and Plan Assessmemt and Plan Assessment: T3 compression fx with some minor disc bulge and bone spurs Ruptured Thoracic Disc Acute Back Pain DJD HTN GERD COnstipation Possible Osteoporisos Mechanical fall Gen weakness Anorexia Vit D def Plan: Possible DC when Stable Appreciate input Dr. Cole Physiatry Continue ergocalciferol supplementation (Vit D deficiency) Continue Boost with Nutrition Continue PT/OT Continue Home Meds Recheck Labs Problems: Comment Review of Relevant I have reviewed the following items gustavo (where applicable) has been applied. Medications Current Medications Ondansetron HCl (Zofran) 4 mg PRN Q8HRS PRN IV NAUSEA/VOMITING Last administered on 06/03/17 06:42; Start 06/03/17 at 06:00; Stop 06/03/17 at 12 :28; Status DC Morphine Sulfate 2 mg PRN Q2HR PRN IV PAIN Last administered on 06/03/17 12: 11; Start 06/03/17 at 06:00; Stop 06/04/17 at 03:41; Status DC Sodium Chloride 1,000 ml @ 125 mls/hr Q8H IV Last administered on 06/03/17 13:35; Start 06/03/17 at 06:00; Stop 06/04/17 at 05:59; Status DC Ondansetron HCl (Zofran) 4 mg PRN Q6HRS PRN IV NAUSEA/VOMITING; Start at 12:30; Stop 06/04/17 at 12:29; Status DC Labetalol HCl (Normodyne) 10 mg PRN Q2HR PRN IVP HYPERTENSION, SEE COMMENTS; Start 06/03/17 at 12:30; Stop 06/06/17 at 08:43; Status DC Atorvastatin Calcium (Lipitor) 40 mg HS PO Last administered on 06/06/17 21: 34; Start 06/03/17 at 21:00 Citalopram Hydrobromide (CeleXA) 10 mg BID PO Last administered on 06/07/17 08:58; Start 06/03/17 at 13:00 Famotidine (Pepcid) 20 mg HS PO Last administered on 06/06/17 21:34; Start 06/03/17 at 21:00 Fluticasone Propionate (Flonase) 2 spray DAILY NS Last administered on 08:57; Start 06/03/17 at 13:00 Levothyroxine Sodium (Synthroid) 150 mcg DAILY07 PO Last administered on 08:58; Start 06/03/17 at 13:00 Neomycin/ Polymyxin/ Hydrocortisone (Cortisporin Otic) 3 drop PRN TID PRN AU EYE INFECTION; Start 06/03/17 at 12:30 Pantoprazole Sodium (Protonix) 40 mg DAILYAC PO Last administered on 08:58; Start 06/03/17 at 13:00 Polyethylene Glycol (miraLAX PACKET) 17 gm PRN DAILY PRN PO CONSTIPATION; Start 06/04/17 at 09:00 Simvastatin (Zocor) 40 mg QHS PO ; Start 06/03/17 at 21:00; Status UNV Sucralfate (Carafate) 1 gm TIDWMEALS PO Last administered on 06/07/17 08:58; Start 06/03/17 at 15:00 Gabapentin (Neurontin) 300 mg TID PO Last administered on 06/07/17 08:58; Start 06/03/17 at 14:00 Non-Formulary Medication 1 cap BID PO ; Start 06/03/17 at 21:00; Status UNV Oxybutynin Chloride (Ditropan) 5 mg [id number] PO Last administered on 06/07/17 08:57; Start 06/03/17 at 14:00 Oxycodone/ Acetaminophen (Percocet 5/325) 1 tab PRN Q4HRS PRN PO PAIN Last administered on 06/07/17 08:57; Start 06/03/17 at 12:30 Prednisone (Prednisone) 40 mg DAILY PO Last administered on 06/07/17 08:57; Start 06/03/17 at 14:00 Doxycycline Hyclate (Vibra-Tab) 100 mg BID PO Last administered on 06/07/17 08:57; Start 06/03/17 at 14:00; Stop 06/11/17 at 21:01 Alprazolam (Xanax) 0.5 mg PRN Q8HRS PRN PO ANXIETY / AGITATION Last administered on 06/06/17 02:14; Start 06/03/17 at 16:00 Morphine Sulfate 2 mg PRN Q2HR PRN IV PAIN Last administered on 06/04/17 03: 46; Start 06/04/17 at 03:45; Stop 06/04/17 at 05:59; Status DC Influenza Virus Vaccine Quadrival (Fluarix Quad [id number] Syringe) 0.5 ml ONCE ONCE VAX IM Last administered on 06/04/17 12:26; Start 06/04/17 at 11:00; Stop 06/04/17 at 11:01; Status DC Lactobacillus Rhamnosus (Culturelle) 1 cap BID PO Last administered on 08:57; Start 06/05/17 at 21:00 Hydralazine HCl (Apresoline Inj) 10 mg PRN Q4HRS PRN IVP ELEVATED BP, SEE COMMENTS; Start 06/06/17 at 08:45 Dextrose/Sodium Chloride 1,000 ml @ 100 mls/hr 1X ONCE IV Last administered on 06/06/17 13:11; Start 06/06/17 at 12:00; Stop 06/06/17 at 21:59; Status DC Ergocalciferol (Vitamin D2) 50,000 unit WEEKLY PO Last administered on t 13:11; Start 06/06/17 at 12:00 Magnesium Hydroxide (Milk Of Magnesia) 2,400 mg PRN DAILY PRN PO CONSTIPATION; Start 06/07/17 at 09:45 Bisacodyl (Dulcolax Tab) 10 mg PRN DAILY PRN PO CONSTIPATION; Start 06/07/17 at 09:45 Active Scripts Active Golytely Solution (Peg 3350/Na Sulf,Bicarb,Cl/Kcl) 4,000 Ml Soln.recon 2,000 Ml PO PRN PRN Drink one half jug as needed for constipation. May drink the other half as needed if you do not obtained desired results. Reported Prednisone 20 Mg Tablet 2 Tab PO DAILY Doxycycline Hyclate 100 Mg Capsule 1 Cap PO BID Sucralfate 1 Gm Tablet 1 Tab PO TID Levothyroxine Sodium 150 Mcg Tablet 1 Tab PO DAILY07 Detrol La (Tolterodine Tartrate) 4 Mg Cap.er.24h 1 Cap PO HS Atorvastatin Calcium 40 Mg Tablet 40 Mg PO HS Doxycycline Hyclate 100 Mg Capsule 1 Cap PO BID Dudxofyb-Pseugdrih-Om Ear Susp (Neomycin/Polymyxin B Sulf/Hc) 10 Ml Drops.susp 3 Drop EACH EAR PRN TID Pantoprazole Sodium 40 Mg Tablet.dr 1 Tab PO DAILY Fluticasone Propionate Nasal [place] (Fluticasone Propionate) 16 Gm Herr[place].susp 2 [place] NS DAILY Simvastatin 40 Mg Tablet 40 Gabapentin 300 Mg Capsule 300 Mg PO TID Lyrica (Pregabalin) 150 Mg Capsule 1 Cap PO BID Pepcid (Famotidine) 20 Mg Tablet 20 Mg PO HS Celexa (Citalopram Hydrobromide) 20 Mg Tablet 10 Mg PO BID Vitals/I & O Vital Sign - Last 24 Hours 06/06/17 06/06/17 06/06/17 06/06/17 11:00 15:00 19:00 20:10 Temp 97.1 98.6 97.7 97.1 98.6 97.7 Pulse 80 83 76 Resp 16 16 16 B/P (MAP) 143/83 (103) 142/78 (99) 121/53 (75) Pulse Ox 97 94 96 O2 Delivery Room Air Room Air Room Air Room Air 06/06/17 06/06/17 06/06/17 06/07/17 21:35 22:32 23:00 03:00 Temp 97.9 97.7 97.9 97.7 Pulse 71 67 Resp 20 16 16 16 B/P (MAP) 132/64 (86) 131/71 (91) Pulse Ox 96 93 95 O2 Delivery Room Air Room Air Room Air 06/07/17 06/07/17 06/07/17 06/07/17 03:08 08:31 08:57 10:41 Temp 98.8 98.8 Pulse 66 Resp 18 16 B/P (MAP) 131/67 (88) Pulse Ox 93 94 O2 Delivery Room Air Room Air Room Air Intake and Output 06/06/17 06/06/17 06/07/17 15:00 23:00 07:00 Intake Total 1432 ml Output Total 250 ml Balance 1182 ml LALO AVILA III DO Jun 07, 2017 11:05
[2017-06-07 11:16] VITALS: BP 124/52
[2017-06-07] MEDS: ALPRAZolam 0.5 MG TABLET PO PRN (12:41)
--- NOTE | 2017-06-13 10:26 | DS ---
DATE OF DISCHARGE: 06/07/2017 ADMISSION DIAGNOSIS: T3 compression fracture. DISCHARGE DIAGNOSIS: Resolving compression fracture. HOSPITAL COURSE: The patient is a pleasant 72-year-old female who had a T3 compression fracture after a fall. She was admitted. We did physical therapy, occupational therapy, consulted Neurosurgery. Overall, she did well. We discharged to skilled. DISPOSITION: Skilled. ACTIVITY: As tolerated. DIET: Low sodium. MEDICATIONS: Please see the MRAD. TOTAL TIME: 32 minutes. LALO AVILA DO DR: LAURI/kristen JOB#: [id number] / [id number]
== END 2017-06-07 15:44 | disposition home or self-care (01) | DRG 543 ==
LOC: ER 21:59 → EEVIPCON 06-03 05:56 → 4 NORTH 06-03 05:56
PROVIDERS: ADMIT Internal Medicine; ATTEND Internal Medicine
DX: M80.08XA Age-related osteoporosis with current pathological fracture, vertebra(e), initial encounter for fracture (principal); Z68.1 Body mass index [BMI] 19.9 or less, adult; E44.0 Moderate protein-calorie malnutrition; E11.9 Type 2 diabetes mellitus without complications; J44.9 Chronic obstructive pulmonary disease, unspecified; M51.24 Other intervertebral disc displacement, thoracic region; E03.9 Hypothyroidism, unspecified; E55.9 Vitamin D deficiency, unspecified; E78.00 Pure hypercholesterolemia, unspecified; E78.5 Hyperlipidemia, unspecified; F31.9 Bipolar disorder, unspecified; I10 Essential (primary) hypertension; K21.9 Gastro-esophageal reflux disease without esophagitis; K59.00 Constipation, unspecified; M19.90 Unspecified osteoarthritis, unspecified site; R63.6 Underweight; Z96.641 Presence of right artificial hip joint; M81.0 Age-related osteoporosis without current pathological fracture; Z83.3 Family history of diabetes mellitus; Z85.3 Personal history of malignant neoplasm of breast; Z87.440 Personal history of urinary (tract) infections; Z91.041 Radiographic dye allergy status; Y93.89 Activity, other specified; Y92.098 Other place in other non-institutional residence as the place of occurrence of the external cause; Y99.8 Other external cause status; Z80.9 Family history of malignant neoplasm, unspecified; Z91.018 Allergy to other foods; Y08.89XA Assault by other specified means, initial encounter
CPT/HCPCS: 36415; 70450; 71010; 72072; 72100; 72125; 72128; 72131; 72146; 72148; 72170; 80048; 82306; 85007; 85025; 85610; 85730; 87641; 90686; J2270; J2405; J7030; J7512; 97116; 97530; 99285-25

== ENCOUNTER → 2017-11-14 | Outpatient (CLI) | payer MEDICARE, OTHER | END | disposition home or self-care (01) | LOC: CT 13:08 | DX: M48.54XA Collapsed vertebra, not elsewhere classified, thoracic region, initial encounter for fracture (principal) | CPT/HCPCS: 71250 ==

== ENCOUNTER 2018-01-21 12:56 | Emergency (ER) | payer MEDICARE, OTHER ==
[2018-01-21 13:35] LABS: ADD MAN DIFF? NO
[2018-01-21 13:41] LABS: BASO % 1 % (0-3); EOS # 0.1 x10^3/uL (0.0-0.7); EOS % 1 % (0-3); HEMATOCRIT 40.4 % (36.0-47.0); HEMOGLOBIN 13.5 g/dL (12.0-15.5); LYMPH # 1.4 x10^3/uL (1.0-4.8); LYMPH % 27 % (24-48); MEAN CORPUSCULAR HEMOGLOBIN 29 pg (25-35); MEAN CORPUSCULAR HGB CONC 33 g/dL (31-37); MEAN CORPUSCULAR VOLUME 87 fL (79-100); MONO # 0.4 x10^3/uL (0.0-1.1); MONO % 8 % (0-9); NEUT # 3.3 x10^3uL (1.8-7.7); NEUT % 63 % (31-73); PLATELET COUNT 173 x10^3/uL (140-400); RED BLOOD COUNT 4.62 x10^6/uL (3.50-5.40); RED CELL DISTRIBUTION WIDTH 13.6 % (11.5-14.5); WHITE BLOOD COUNT 5.1 x10^3/uL (4.0-11.0)
[2018-01-21 13:45] LABS: BILIRUBIN,URINE NEGATIVE (NEG); CLARITY,URINE CLEAR; COLOR,URINE YELLOW; GLUCOSE,URINE NEGATIVE (NEG); NITRITE,URINE NEGATIVE (NEG); PROTEIN,URINE NEGATIVE (NEG-TRACE); UROBILINOGEN,URINE 0.2 mg/dL (0.2 mg/dL)
[2018-01-21] MEDS: IV NORMAL SALINE 1000ML BAG 1,000 ML IV (13:49)
[2018-01-21 13:50] LABS: ANION GAP 8 (6-14); BLOOD UREA NITROGEN 15 mg/dL (7-20); BUN/CREATININE RATIO 19 (6-20); CALCIUM 8.7 mg/dL (8.5-10.1); CARBON DIOXIDE 30 mmol/L (21-32); CHLORIDE 100 mmol/L (98-107); CREATININE 0.8 mg/dL (0.6-1.0); GFR 70.7; GLUCOSE 89 mg/dL (70-99); POTASSIUM 4.4 mmol/L (3.5-5.1); SODIUM 138 mmol/L (136-145)
[2018-01-21 14:00] LABS: TROPONINI < 0.017 ng/mL (0.000-0.055)
[2018-01-21 14:00] LABS: BACTERIA,URINE MODERATE /HPF (0-FEW); RBC,URINE 0 /HPF (0-2); SQUAMOUS EPITHELIAL CELL,UR FEW /LPF
[2018-01-21 14:02] LABS: ALBUMIN 4.4 g/dL (3.4-5.0); ALBUMIN/GLOBULIN RATIO 1.3 (1.0-1.7); ALK PHOS 56 U/L (46-116); ALT (SGPT) 33 U/L (14-59); AST (SGOT) 30 U/L (15-37); LIPASE 205 U/L (73-393); TOTAL BILIRUBIN 0.6 mg/dL (0.2-1.0); TOTAL PROTEIN 7.8 g/dL (6.4-8.2)
[2018-01-21 14:04] LABS: CKMB INDEX 1.4 % (0-4); CKMB MASS 1.3 ng/mL (0.0-3.6); CREATINE KINASE 92 U/L (26-192)
== END 2018-01-21 14:50 | disposition home or self-care (01) ==
LOC: ER 12:56
DX: R53.83 Other fatigue (principal); F41.9 Anxiety disorder, unspecified; N39.0 Urinary tract infection, site not specified; F31.9 Bipolar disorder, unspecified; E11.9 Type 2 diabetes mellitus without complications; E78.00 Pure hypercholesterolemia, unspecified; I10 Essential (primary) hypertension; Z91.041 Radiographic dye allergy status; Z91.010 Allergy to peanuts
CPT/HCPCS: 36415; 80053; 81001; 82553; 83690; 84484; 85025; 87086; 93005; 96360; 99285-25; J7030

== ENCOUNTER → 2018-05-06 | Outpatient (CLI) | payer MEDICARE, OTHER ==
[2018-01-21 14:18] VITALS: BP 141/82
[~2018-05-06] MED LIST changes: +ATOR40TA59 PO; +CIPR250T30 PO; +DOXY100C2 PO; +FLUT16SP NS; +LEVO150T5 PO; +NEOM10DR32 EACH EAR; +PANT40TA5 PO; +PRED20TA PO; +RANI150T21 PO; -RANI150T6 PO; +SUCR1TAB PO; +TOLT4CAP PO
[2018-05-06 15:25] LABS: BASO % 1 % (0-3); EOS # 0.7 x10^3/uL (0.0-0.7); EOS % 12 % (0-3); HEMATOCRIT 37.7 % (36.0-47.0); HEMOGLOBIN 12.8 g/dL (12.0-15.5); LYMPH # 1.3 x10^3/uL (1.0-4.8); LYMPH % 21 % (24-48); MEAN CORPUSCULAR HEMOGLOBIN 29 pg (25-35); MEAN CORPUSCULAR HGB CONC 34 g/dL (31-37); MEAN CORPUSCULAR VOLUME 87 fL (79-100); MONO # 0.8 x10^3/uL (0.0-1.1); MONO % 13 % (0-9); NEUT # 3.3 x10^3uL (1.8-7.7); NEUT % 54 % (31-73); PLATELET COUNT 207 x10^3/uL (140-400); RED BLOOD COUNT 4.34 x10^6/uL (3.50-5.40); RED CELL DISTRIBUTION WIDTH 13.2 % (11.5-14.5); WHITE BLOOD COUNT 6.1 x10^3/uL (4.0-11.0)
[2018-05-06 15:47] LABS: ALBUMIN 3.6 g/dL (3.4-5.0); CREATININE 0.8 mg/dL (0.6-1.0); GFR 70.5; POTASSIUM 4.1 mmol/L (3.5-5.1); TOTAL BILIRUBIN 0.3 mg/dL (0.2-1.0); TOTAL PROTEIN 7.2 g/dL (6.4-8.2)
== END | disposition home or self-care (01) ==
LOC: LAB 14:48
PROVIDERS: ATTEND Psychiatry & Neurology Neurology with Special Qualifications in Child Neurology
DX: R41.3 Other amnesia (principal)
CPT/HCPCS: 36415; 80053; 82607; 82746; 84443; 85025; 85651

== ENCOUNTER → 2018-06-26 | Outpatient (CLI) | payer MEDICARE, OTHER ==
[2018-01-21 14:18] VITALS: BP 141/82
[~2018-06-26] MED LIST changes: -GABA-586 PO; +GABA300C18 PO
--- NOTE | 2018-06-26 13:32 | RAD ---
DATE: 06/26/2018 EXAM: DIGITAL SCREEN BILAT W/CAD HISTORY: Routine screening. COMPARISON: Previous mammogram from 2017 This study was interpreted with the benefit of Computerized Aided Detection (CAD). FINDINGS: Breast Density: SCATTERED The breast parenchyma shows scattered fibroglandular densities. Breast parenchyma level B. The skin and nipples are within normal limits. Bilateral retropectoral breast implants noted. No suspicious calcifications, spiculated mass or area of architectural distortion. IMPRESSION: No mammographic evidence of malignancy. Stable mammogram. BI-RADS CATEGORY: 2 BENIGN FINDING(S) RECOMMENDED FOLLOW-UP: 12M 12 MONTH FOLLOW-UP PQRS compliance statement: Patient information was entered into a reminder system with a target due date for the next mammogram. Mammography is a sensitive method for finding small breast cancers, but it does not detect them all and is not a substitute for careful clinical examination. A negative mammogram does not negate a clinically suspicious finding and should not result in delay in biopsying a clinically suspicious abnormality. "Our facility is accredited by the [employer] Mammography Program."
== END | disposition home or self-care (01) ==
LOC: MAMMO 10:24
PROVIDERS: ATTEND Internal Medicine Hematology & Oncology
DX: Z12.31 Encounter for screening mammogram for malignant neoplasm of breast (principal); D05.11 Intraductal carcinoma in situ of right breast
CPT/HCPCS: 77067

== ENCOUNTER → 2018-08-26 | Outpatient (CLI) | payer MEDICARE, OTHER ==
[2018-01-21 14:18] VITALS: BP 141/82
--- NOTE | 2018-08-26 10:39 | KCIC ---
EXAM: Brain MRI without contrast. HISTORY: Memory loss. TECHNIQUE: Multiplanar, multisequence magnetic resonance imaging of the brain was performed without contrast. COMPARISON: CT dated 06/03/2017. FINDINGS: There is no restricted diffusion to suggest acute or subacute infarction. There is no susceptibility effect to suggest hemorrhage. There is no mass effect or midline shift. There is no hydrocephalus. There are few scattered foci of T2/FLAIR hyperintensity within the cerebral white matter, a nonspecific finding. There is evidence of lens surgery. There is mild paranasal sinus because of thickening. The mastoid air cells are clear. There are normal flow voids within the cerebral vessels. IMPRESSION: 1. No acute intracranial finding. 2. Few scattered foci of signal change within the cerebral white matter, most commonly due to chronic small vessel disease in patients of this age. Electronically signed by: Mimi Krause MD (08/26/2018 10:36 AM) [id number]
== END | disposition home or self-care (01) ==
LOC: EEVIPCON 06-02 10:15 → KCIC MRI 09:14
PROVIDERS: ATTEND Psychiatry & Neurology Neurology with Special Qualifications in Child Neurology
DX: I73.89 Other specified peripheral vascular diseases (principal); R90.82 White matter disease, unspecified
CPT/HCPCS: 70551

== ENCOUNTER 2018-09-18 10:32 | Emergency (ER) | payer MEDICARE, OTHER ==
[~2018-09-18] VITALS: Ht 160 cm; Wt 45.4 kg
[~2018-09-18 10:32] MED LIST changes: +RANI-376 PO; -RANI150T21 PO
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
--- NOTE | 2018-09-18 12:01 | RAD ---
PQRS Compliance statement: One or more of the following individualized dose reduction techniques were utilized for this examination: 1. Automated exposure control. 2. Adjustment of the mA and/or kV according to patient size. 3. Use of iterative reconstruction technique. Indication:Fuzziness in the head PREV SENT TECHNIQUE: CT head without IV contrast COMPARISON:06/03/2017. FINDINGS: No pathologic extra-axial or intra-axial fluid collection. The ventricles and basal cisterns are within normal limits. No acute intracranial bleed. No focal loss of dior-white differentiation. Orbits within normal limits. No suspicious bony lesion. Visualized paranasal sinuses and mastoid air cells are clear. IMPRESSION: No acute intracranial process. If concern for acute ischemic stroke is high, please consider MRI brain. Electronically signed by: Sunil Dunbar DO (09/18/2018 11:58 AM) [id number]
[2018-09-18 12:20] LABS: BASO % 1 % (0-3); EOS # 0.1 x10^3/uL (0.0-0.7); EOS % 1 % (0-3); HEMATOCRIT 37.6 % (36.0-47.0); HEMOGLOBIN 12.3 g/dL (12.0-15.5); LYMPH # 1.1 x10^3/uL (1.0-4.8); LYMPH % 21 % (24-48); MEAN CORPUSCULAR HEMOGLOBIN 29 pg (25-35); MEAN CORPUSCULAR HGB CONC 33 g/dL (31-37); MEAN CORPUSCULAR VOLUME 88 fL (79-100); MONO # 0.5 x10^3/uL (0.0-1.1); MONO % 8 % (0-9); NEUT # 3.7 x10^3uL (1.8-7.7); NEUT % 69 % (31-73); PLATELET COUNT 149 x10^3/uL (140-400); RED BLOOD COUNT 4.26 x10^6/uL (3.50-5.40); RED CELL DISTRIBUTION WIDTH 13.6 % (11.5-14.5); WHITE BLOOD COUNT 5.4 x10^3/uL (4.0-11.0)
[2018-09-18 12:28] LABS: PROTHROMBIN TIME PATIENT 12.5 SEC (11.7-14.0)
[2018-09-18 12:50] LABS: ALBUMIN 3.4 g/dL (3.4-5.0); ALBUMIN/GLOBULIN RATIO 1.1 (1.0-1.7); CALCIUM 8.3 mg/dL (8.5-10.1); CREATININE 0.6 mg/dL (0.6-1.0); GFR 98.3; POTASSIUM 3.7 mmol/L (3.5-5.1); TOTAL BILIRUBIN 0.4 mg/dL (0.2-1.0); TOTAL PROTEIN 6.4 g/dL (6.4-8.2)
[2018-09-18 12:51] VITALS: BP 128/68
[2018-09-18 13:01] LABS: ACETAMIN < 2 mcg/ml (10-30); ETHANOL < 10 mg/dL (0-10); SALIC < 2.8 mg/dL (2.8-20.0)
[2018-09-18 13:06] LABS: BILIRUBIN,URINE NEGATIVE (NEG); CLARITY,URINE CLEAR; COLOR,URINE YELLOW; NITRITE,URINE NEGATIVE (NEG); PROTEIN,URINE NEGATIVE (NEG-TRACE); UROBILINOGEN,URINE 0.2 mg/dL (0.2 mg/dL)
[2018-09-18 13:08] LABS: BARBITURATES NEG (NEG); BENZODIAZEPINES NEG (NEG); CANNABINOIDS NEG (NEG); COCAINE NEG (NEG); METHADONE NEG (NEG); OPIATES NEG (NEG); PHENCYCLIDINE NEG (NEG)
[2018-09-18 13:09] LABS: AMPHETAMINE/METHAMPHETAMINE NEG (NEG)
[2018-09-18 14:21] LABS: BACTERIA,URINE 0 /HPF (0-FEW); RBC,URINE OCC /HPF (0-2); SQUAMOUS EPITHELIAL CELL,UR FEW /LPF; WBC,URINE 0 /HPF (0-4)
== END 2018-09-18 14:33 | disposition home or self-care (01) ==
LOC: ER 10:32
DX: F32.9 Major depressive disorder, single episode, unspecified (principal); E78.00 Pure hypercholesterolemia, unspecified; E11.9 Type 2 diabetes mellitus without complications; I10 Essential (primary) hypertension; K21.9 Gastro-esophageal reflux disease without esophagitis; F41.9 Anxiety disorder, unspecified; Z88.8 Allergy status to other drugs, medicaments and biological substances; Z91.010 Allergy to peanuts; Z91.5 Personal history of self-harm
CPT/HCPCS: 36415; 70450; 80053; 80307; 80329; 81001; 83690; 83735; 83880; 84443; 84484; 85025; 85610; 85730; 99284; G0480; G6039

== ENCOUNTER 2019-08-15 12:18 | Emergency (ER) | payer MEDICARE, OTHER ==
[~2019-08-15] VITALS: Ht 160 cm; Wt 45.6 kg
[~2019-08-15 12:18] MED LIST changes: -PANT40TA5 PO; +PANT40TA77 PO; +SIMV40TA18; -SIMV40TA3
[2019-08-15] MEDS ORDERED: IV NORMAL SALINE 1000ML BAG 1,000 ML IV ONE (12:30)
[2019-08-15] MEDS ORDERED: ONDANSETRON PF 4 MG/2 ML VIAL. IVP ONE (13:00)
[2019-08-15] MEDS ORDERED: MECLIZINE HCL 12.5 MG TABLET. PO ONE (13:00)
[2019-08-15] MEDS ORDERED: DEXAMETHASONE SOD PHOS 4 MG/ML VIAL IVP ONE (13:00)
[2019-08-15 13:03] LABS: BASO # 0.1 x10^3/uL (0.0-0.2); BASO % 1 % (0-3); EOS # 0.1 x10^3/uL (0.0-0.7); EOS % 2 % (0-3); HEMATOCRIT 37.8 % (36.0-47.0); HEMOGLOBIN 12.6 g/dL (12.0-15.5); LYMPH # 1.4 x10^3/uL (1.0-4.8); LYMPH % 25 % (24-48); MEAN CORPUSCULAR HEMOGLOBIN 29 pg (25-35); MEAN CORPUSCULAR HGB CONC 33 g/dL (31-37); MEAN CORPUSCULAR VOLUME 87 fL (79-100); MONO # 0.8 x10^3/uL (0.0-1.1); MONO % 15 % (0-9); NEUT # 3.2 x10^3/uL (1.8-7.7); NEUT % 58 % (31-73); PLATELET COUNT 172 x10^3/uL (140-400); RED BLOOD COUNT 4.37 x10^6/uL (3.50-5.40); RED CELL DISTRIBUTION WIDTH 13.3 % (11.5-14.5); WHITE BLOOD COUNT 5.6 x10^3/uL (4.0-11.0)
[2019-08-15 13:05] LABS: BILIRUBIN,URINE NEGATIVE (NEG); CLARITY,URINE CLEAR; COLOR,URINE YELLOW; NITRITE,URINE NEGATIVE (NEG); PH,URINE 7.5; PROTEIN,URINE NEGATIVE (NEG-TRACE); UROBILINOGEN,URINE 0.2 mg/dL (0.2 mg/dL)
[2019-08-15 13:10] LABS: CALCIUM 8.8 mg/dL (8.5-10.1); CREATININE 0.8 mg/dL (0.6-1.0); GFR 70.3; POTASSIUM 4.2 mmol/L (3.5-5.1)
[2019-08-15 13:18] LABS: ALBUMIN 3.8 g/dL (3.4-5.0); ALBUMIN/GLOBULIN RATIO 1.2 (1.0-1.7); TOTAL BILIRUBIN 0.5 mg/dL (0.2-1.0); TOTAL PROTEIN 6.9 g/dL (6.4-8.2)
[2019-08-15 13:24] LABS: BACTERIA,URINE 0 /HPF (0-FEW); RBC,URINE 0 /HPF (0-2); SQUAMOUS EPITHELIAL CELL,UR MOD /LPF
--- NOTE | 2019-08-15 13:28 | PHYS DOC ---
Past Medical History Past Medical History: Anxiety, Bipolar, Cancer, Depression, Diabetes-Type II, High Cholesterol, Hypertension, UTI Additional Past Medical Histor: yeast infections, BREAST CA, MULTIPLE LUNG NODULES, THYROID DZ, ACID REFLUX Past Surgical History: Hip Replacement Additional Past Surgical Histo: rt wrist, R HAND SX Smoking: Cigarettes Alcohol Use: None Drug Use: Marijuana Adult General Chief Complaint Chief Complaint: DIARRHEA HPI HPI 74-year-old female presents with complaints including dizziness which is been ongoing for the past few days intermittently and diarrhea that has been ongoing intermittently for the past few months. Patient describes dizziness as a "room spinning sensation ". Patient concerned she might have a urinary tract infection and/or a yeast infection which is been a frequent problem over the last several months. Denies any fever or chills. Denies chest pain. Denies trauma. Denies travel outside the [place]. Denies known sick contacts. Patient denies history of vertigo. Reports some recent nasal congestion. Review of Systems Review of Systems Constitutional: Denies fever or chills Eyes: Denies redness or eye pain HENT: Denies sore throat; reports nasal congestion Respiratory: Denies cough or shortness of breath Cardiovascular: Denies chest pain or palpitations GI: Denies abdominal pain or vomiting; reports nausea and diarrhea : Denies dysuria or hematuria Musculoskeletal: Denies back pain or joint pain Integument: Denies rash or skin lesions Neurologic: Denies headache, focal weakness or sensory changes; reports dizziness Complete systems were reviewed and found to be within normal limits, except as documented in this note. Current Medications Current Medications Current Medications Medications (Trade) Dose Ordered Sig/Bruno Start Time Stop Time Status Last Admin Dose Admin Dexamethasone Sodium Phosphate (Decadron) 10 mg 1X ONCE 08/15/19 13:00 08/15/19 13:01 DC 08/15/19 13:10 10 MG Meclizine HCl (Antivert) 25 mg 1X ONCE 08/15/19 13:00 08/15/19 13:01 DC 08/15/19 13:10 25 MG Ondansetron HCl (Zofran) 4 mg 1X ONCE 08/15/19 13:00 08/15/19 13:01 DC 08/15/19 13:09 4 MG Sodium Chloride 1,000 ml @ 1,000 mls/hr 1X ONCE 08/15/19 12:30 08/15/19 13:29 DC 08/15/19 13:09 1,000 MLS/HR Allergies Allergies Allergies Coded Allergies Type Severity Reaction Last Updated Verified peanut Allergy Intermediate Rash 11/15/15 Yes iodine Adverse Reaction Intermediate vomiting 05/27/14 Yes Physical Exam Physical Exam Constitutional: Well developed, well nourished, no acute distress, non-toxic appearance, hyperverbal HENT: Normocephalic, atraumatic, oropharynx moist, TMs clear bilaterally, nasal congestion noted Eyes: PERRL, EOMI, conjunctiva normal, no discharge, no nystagmus Neck: Normal range of motion, no tenderness, supple Cardiovascular: Heart rate normal, regular rhythm Lungs & Thorax: Bilateral breath sounds clear to auscultation, no wheezing Abdomen: Soft, no tenderness, no guarding/rebound tenderness/distention Skin: Warm, dry, no erythema, no rash Extremities: No tenderness, ROM intact, no edema Neurologic: Alert and oriented X 3, normal motor function, normal sensory function, no focal deficits noted Psychologic: Affect manic, judgment normal Current Patient Data Vital Signs Vital Signs Date Time Temp Pulse Resp B/P (MAP) Pulse Ox O2 Delivery O2 Flow Rate FiO2 08/15/19 12:25 98.0 69 16 131/70 (90) 97 Room Air 98.0 Lab Values Laboratory Tests Test 08/15/19 12:30 08/15/19 12:50 Urine Collection Type Unknown Urine Color Yellow Urine Clarity Clear Urine pH 7.5 Urine Specific [place] 1.010 Urine Protein Negative mg/dL (NEG-TRACE) Urine Glucose (UA) Negative mg/dL (NEG) Urine Ketones (Stick) Negative mg/dL (NEG) Urine Blood Negative (NEG) Urine Nitrite Negative (NEG) Urine Bilirubin Negative (NEG) Urine Urobilinogen Dipstick 0.2 mg/dL (0.2 mg/dL) Urine Leukocyte Esterase Trace (NEG) Urine RBC 0 /HPF (0-2) Urine WBC 5-10 /HPF (0-4) Urine Squamous Epithelial Cells Mod /LPF Urine Bacteria 0 /HPF (0-FEW) White Blood Count 5.6 x10^3/uL (4.0-11.0) Red Blood Count 4.37 x10^6/uL (3.50-5.40) Hemoglobin 12.6 g/dL (12.0-15.5) Hematocrit 37.8 % (36.0-47.0) Mean Corpuscular Volume 87 fL (79-100) Mean Corpuscular Hemoglobin 29 pg (25-35) Mean Corpuscular Hemoglobin Concent 33 g/dL (31-37) Red Cell Distribution Width 13.3 % (11.5-14.5) Platelet Count 172 x10^3/uL (140-400) Neutrophils (%) (Auto) 58 % (31-73) Lymphocytes (%) (Auto) 25 % (24-48) Monocytes (%) (Auto) 15 % (0-9) H Eosinophils (%) (Auto) 2 % (0-3) Basophils (%) (Auto) 1 % (0-3) Neutrophils # (Auto) 3.2 x10^3/uL (1.8-7.7) Lymphocytes # (Auto) 1.4 x10^3/uL (1.0-4.8) Monocytes # (Auto) 0.8 x10^3/uL (0.0-1.1) Eosinophils # (Auto) 0.1 x10^3/uL (0.0-0.7) Basophils # (Auto) 0.1 x10^3/uL (0.0-0.2) Sodium Level 141 mmol/L (136-145) Potassium Level 4.2 mmol/L (3.5-5.1) Chloride Level 102 mmol/L (98-107) Carbon Dioxide Level 29 mmol/L (21-32) Anion Gap 10 (6-14) Blood Urea Nitrogen 21 mg/dL (7-20) H Creatinine 0.8 mg/dL (0.6-1.0) Estimated GFR (Cockcroft-Gault) 70.3 BUN/Creatinine Ratio 26 (6-20) H Glucose Level 85 mg/dL (70-99) Calcium Level 8.8 mg/dL (8.5-10.1) Magnesium Level 2.0 mg/dL (1.8-2.4) Total Bilirubin 0.5 mg/dL (0.2-1.0) Aspartate Amino Transferase (AST) 31 U/L (15-37) Alanine Aminotransferase (ALT) 33 U/L (14-59) Alkaline Phosphatase 51 U/L (46-116) Creatine Kinase 91 U/L (26-192) Creatine Kinase MB (Mass) 1.1 ng/mL (0.0-3.6) Creatine Kinase MB Relative Index 1.2 % (0-4) Troponin I Quantitative < 0.017 ng/mL (0.000-0.055) Total Protein 6.9 g/dL (6.4-8.2) Albumin 3.8 g/dL (3.4-5.0) Albumin/Globulin Ratio 1.2 (1.0-1.7) Lipase 142 U/L (73-393) Laboratory Tests 08/15/19 12:50 Laboratory Tests 08/15/19 12:50 EKG EKG @1318 Sinus bradycardia at 50bpm, NO ST elevation Radiology/Procedures Radiology/Procedures [] Course & Med Decision Making Course & Med Decision Making Pertinent Lab studies reviewed. (See chart for details) Patient presents with report of dizziness which she describes as room spinning sensation has been intermittent over the last several days. Reports has had some problems with nasal congestion. Patient denies any trauma. Also reports history of frequent diarrhea. Denies known sick contacts. Afebrile. Abdomen non- peritoneal. NIHSS 0. IV fluid hydration provided. EKG stable. Labs obtained and posted to chart. UA appears more likely contamination than infection. Will hold empiric antibiotics. Symptomatic treatment provided with oral meclizine and IV Zofran and steroid with interval improvement of symptoms. Patient stable for discharge with outpatient follow-up with PCP. Discussed findings and plan with patient, who acknowledges understanding and agreement. Dragon Disclaimer Dragon Disclaimer This electronic medical record was generated, in whole or in part, using a voice recognition dictation system. Departure Departure Impression: Primary Impression: Dizziness Additional Impression: Diarrhea Disposition: 01 HOME, SELF-CARE Condition: STABLE Referrals: ANGELICA ASHTON (PCP) Patient Instructions: Diarrhea, [id number], Diet for Diarrhea, Adult, Dizziness, [id number] Scripts Meclizine Hcl (MECLIZINE HCL) 25 Mg Tablet 1 TAB PO PRN TID PRN for DIZZINESS, #20 TAB Prov: ARIELLE BRADY DO 08/15/19 Problem Qualifiers Additional Impression: Diarrhea Diarrhea type: unspecified type Qualified Codes: R19.7 - Diarrhea, unspecified ARIELLE BRADY DO Aug 15, 2019 13:28
[2019-08-15 14:04] VITALS: BP 159/77
[2019-08-15] MEDS ORDERED: MECL-75 PO (14:17)
--- NOTE | 2019-08-15 14:57 | EKG ---
[facility] [address] [place] [id number] Test Date: 2019-08-15 Test Time: 13:18:20 Pat Name: ANNABEL JIMENEZ Department: Room: Gender: F Red Leader: [facility] ER : 1945 Requested By: ARIELLE BRADY Order Number: [id number] Reading MD: Measurements Intervals [place] Rate: 50 P: 64 GA: 170 QRS: 32 QRSD: 82 T: 44 QT: 462 QTc: 424 Interpretive Statements SINUS RHYTHM LOW LIMB LEAD VOLTAGE NO SPECIFIC ECG ABNORMALITIES RI6.01 No previous ECG available for comparison
== END 2019-08-15 14:29 | disposition home or self-care (01) ==
LOC: ER 12:18
DX: R42 Dizziness and giddiness (principal); R19.7 Diarrhea, unspecified; R09.81 Nasal congestion; F31.9 Bipolar disorder, unspecified; E11.9 Type 2 diabetes mellitus without complications; E78.00 Pure hypercholesterolemia, unspecified; I10 Essential (primary) hypertension; K21.9 Gastro-esophageal reflux disease without esophagitis; F17.210 Nicotine dependence, cigarettes, uncomplicated; Z91.010 Allergy to peanuts; Z88.8 Allergy status to other drugs, medicaments and biological substances
CPT/HCPCS: 36415; 80053; 81001; 82553; 83690; 83735; 84484; 85025; 87086; 93005; 96361; 96374; 96375; 99285; J1100; J2405; J7030; J8597

== ENCOUNTER → 2020-03-07 | Outpatient (CLI) | payer MEDICARE, OTHER ==
[~2020-03-07] MED LIST changes: +MECL-75 PO
--- NOTE | 2020-03-07 14:15 | RAD ---
CT Abdomen and Pelvis without contrast History: Left lower quadrant pain Technique: Noncontrast CT imaging was performed of the abdomen and pelvis. Multiplanar images are reviewed. Exposure: One or more of the following individualized dose reduction techniques were utilized for this examination: 1. Automated exposure control 2. Adjustment of the mA and/or kV according to patient size 3. Use of iterative reconstruction technique. Comparison: April 17, 2017 Findings: There are again bilateral breast implants with evidence of intracapsular rupture, also calcification on the left as seen previously. There is a very small 0.2 cm calculus in the medial left renal parenchyma as seen previously. There is similar right renal pelviectasis. Accurate evaluation of abdominal visceral organs is limited without intravenous contrast. There is no new obvious focal abnormality of the spleen, liver, or pancreas. There are again splenic granulomas. Gallbladder is present without obvious intraluminal abnormality by CT. There is no adrenal nodularity. Accurate evaluation of bowel is limited without oral contrast. There is no significant free air, free fluid, bowel dilatation. There is retained stool throughout the colon. There is prominent distention of the urinary bladder. There is artifact in the pelvis created by right hip arthroplasty. There is again superior compression deformity of L1 and T11. There is some scattered plaque of the normal caliber abdominal aorta. Impression: 1. There is prominent distention of the urinary bladder. 2. There is retained stool in the colon. Electronically signed by: Rhett Pichardo MD (03/07/2020 2:12 PM) [facility]
--- NOTE | 2020-03-07 15:09 | RAD ---
DATE: 03/07/2020 11:02 AM EXAM: MAMMO JOLLY SCREENING BILATERAL HISTORY: Screening COMPARISON: 06/26/2018 Bilateral CC and MLO views of the breasts were performed with and without implant displaced views. Bilateral breast tomosynthesis was performed in CC and MLO projections. FINDINGS: Breast Density: SCATTERED The breast parenchyma shows scattered fibroglandular densities. Breast parenchyma level B Bilateral retroglandular silicone implants are partially imaged with capsular calcifications also noted. No suspicious masses, microcalcifications or architectural distortion is present to suggest malignancy in either breast. The visualized axillae are unremarkable. IMPRESSION: No mammographic evidence of malignancy. BI-RADS CATEGORY: 1 NEGATIVE RECOMMENDED FOLLOW-UP: 12M 12 MONTH FOLLOW-UP Annual screening mammography is recommended, unless clinically indicated sooner based on symptoms or change in physical exam. PQRS compliance statement: Patient information was entered into a reminder system with a target due date for the next mammogram. Mammography is a sensitive method for finding small breast cancers, but it does not detect them all and is not a substitute for careful clinical examination. A negative mammogram does not negate a clinically suspicious finding and should not result in delay in biopsying a clinically suspicious abnormality. "Our facility is accredited by the [employer] Mammography Program."
== END ==
LOC: CT 09:34
PROVIDERS: ATTEND Nurse Practitioner
DX: Z12.31 Encounter for screening mammogram for malignant neoplasm of breast (principal); N32.89 Other specified disorders of bladder; K59.00 Constipation, unspecified
CPT/HCPCS: 74176; 77063; 77067

== ENCOUNTER 2020-07-22 08:18 | Emergency (ER) | payer MEDICARE, OTHER ==
[~2020-07-22] VITALS: Ht 160 cm; Wt 50.0 kg
[2020-07-22 08:56] VITALS: BP 125/58
[2020-07-22] MEDS ORDERED: DIPH,PERTUSS(ACELL),TET VAC/PF 0.5 ML SYRINGE. VAX IM ONE (09:15)
[2020-07-22] MEDS ORDERED: NEOMY/BACITR/POLYMYXIN OINT PACKET. TP ONE (09:15)
[2020-07-22] MEDS ORDERED: AMOXICILLIN/K CLAV 875/125MG TABLET. PO ONE (09:15)
--- NOTE | 2020-07-22 09:18 | PHYS DOC ---
Past Medical History Past Medical History: Anxiety, Asthma, Bipolar, Cancer, Depression, Diabetes- Type II, High Cholesterol, Hypertension, UTI Additional Past Medical Histor: yeast infections, BREAST CA, MULTIPLE LUNG NODULES, THYROID DZ, ACID REFLUX Past Surgical History: Hip Replacement Additional Past Surgical Histo: rt wrist, R HAND SX, R. MASTECTOMY Smoking Status: Light Tobacco Smoker Alcohol Use: None Drug Use: Marijuana General Adult EDM: Chief Complaint: ANIMAL BITE HPI: HPI: Patient is a 75 year old female presents with dog bite to left pinky finger that was sustained yesterday by neighbor's "Day" at approximately 1700. Patient reports she was helping the animal get back behind its fence. Patient reports she is unsure regarding its vaccination status. Reports had placed some iodine and hydrogen peroxide on the wound but awoke today with some increased pain, redness, and swelling. Denies any fever or chills. Reports she is unsure when her last tetanus booster was. Review of Systems: Review of Systems: Constitutional: Denies fever or chills Eyes: Denies redness or eye pain HENT: Denies nasal congestion or sore throat Respiratory: Denies cough or shortness of breath Cardiovascular: Denies chest pain or palpitations GI: Denies abdominal pain, nausea, or vomiting : Denies dysuria or hematuria Musculoskeletal: Left pinky finger swelling and redness Integument: Redness of the left pinky finger and dog bite Neurologic: Denies headache, focal weakness or sensory changes Complete systems were reviewed and found to be within normal limits, except as documented in this note. Current Medications: Current Medications Medications (Trade) Dose Ordered Sig/Bruno Start Time Stop Time Status Last Admin Dose Admin Amoxicillin/ Clavulanate Potassium (Augmentin 875/ 125mg) 1 tab 1X ONCE 07/22/20 09:15 07/22/20 09:16 UNV Diphtheria/ Tetanus/Acell Pertussis (ADACEL TDap SYRINGE) 0.5 ml ONCE ONCE 07/22/20 09:15 07/22/20 09:16 UNV Neomycin/ Polymyxin/ Bacitracin (Triple Antibiotic Ointment) 1 pkt 1X ONCE 07/22/20 09:15 07/22/20 09:16 UNV Allergies: Allergies: Allergies Coded Allergies Type Severity Reaction Last Updated Verified peanut Allergy Intermediate Rash 11/15/15 Yes iodine Adverse Reaction Intermediate vomiting 05/27/14 Yes Physical Exam: PE: Constitutional: Well developed, well nourished, no acute distress, non-toxic appearance HENT: Normocephalic, atraumatic Eyes: Conjunctiva normal, no discharge Neck: Normal range of motion, no tenderness, supple Lungs & Thorax: No respiratory distress, equal chest rise and fall Skin: Warm, dry, left pinky dog bite wound to palmar aspect measuring 0.5cm, erythema noted to dorsal aspect radiating to back of hand Extremities: Tenderness to bite wound, patient is able to move digit, some pain on palpation of finger Neurologic: Alert and oriented X 3, no focal deficits noted Psychologic: Affect normal, judgment normal Current Patient Data: Vital Signs: Vital Signs Date Time Temp Pulse Resp B/P (MAP) Pulse Ox O2 Delivery O2 Flow Rate FiO2 07/22/20 08:56 97.3 84 16 125/58 (80) 97 Room Air 97.3 EKG: EKG: [] Radiology/Procedures: Radiology/Procedures: PROCEDURE: FINGER(S) RIGHT Right fifth finger 3 views. HISTORY: Dog bite, laceration 3 views were taken of the right fifth finger. There is not evidence of an acute fracture or acute osseous abnormality. There is an old healed fracture of the fifth metacarpal with wires sutures. There is an old study healed distal radius fracture with a plate and screws. IMPRESSION: 1. No acute fracture noted in the right fifth finger. Electronically signed by: Avelino Taylor MD (07/22/2020 9:24 AM) [facility] Course & Med Decision Making: Course & Med Decision Making Pertinent Imaging studies reviewed. (See chart for details) Patient presents with dog bite to right pinky finger. Some signs of infection appreciated. X-ray obtained without fracture or dislocation. Wound cleaned and dressed with antibiotic ointment placement. Empiric Augmentin initiated. Tetanus updated. Patient does not appear to have signs of tenosynovitis at this time. There is concern patient may develop given history of diabetes. Offered transfer to facility with hand surgery coverage. Patient elects to be discharged home at t his time. Patient advised to follow closely with hand surgeon and to return for any worsening of condition. Patient stable for discharge with outpatient follow-up with PCP/hand surgeon. Discussed findings and plan with patient, who acknowledges understanding and agreement. Angelo Disclaimer: Angelo Disclaimer: This electronic medical record was generated, in whole or in part, using a voice recognition dictation system. Departure Departure Impression: Primary Impression: Dog bite of finger Qualified Codes: S61.259A - Open bite of unspecified finger without damage to nail, initial encounter; W54.0XXA - Bitten by dog, initial encounter Disposition: 01 DC HOME SELF CARE/HOMELESS Condition: STABLE Referrals: UNKNOWN PCP NAME (PCP) Patient Instructions: Animal Bite, [id number] Additional Instructions: Do not soak your wound. You may shower. Clean wound daily with soap and water. Change dressing 2 times daily. Use over the counter antibiotic ointment with each dressing change. Return for any worsening of condition or present directly to hospital with hand surgery coverage ([facility], , [facility]). Hand surgery referral: Dr. Dorota Cardenas [address] [place] [address] Scripts Mupirocin (MUPIROCIN OINTMENT) 22 Gm Oint...g. 1 JONH TP TID for WOUND CARE for 10 Days, #1 TUBE Prov: ARIELLE BRADY DO 07/22/20 Amoxicillin/Potassium Clav (AUGMENTIN 875-125 TABLET) 1 Each Tablet 1 TAB PO BID for 10 Days, #20 TAB Prov: ARIELLE BRADY DO 07/22/20 ARIELLE BRADY DO Jul 22, 2020 09:18
[2020-07-22] MEDS ORDERED: MUPI22OI2 TP (09:27)
[2020-07-22] MEDS ORDERED: AMOX1TAB61 PO (09:27)
--- NOTE | 2020-07-22 09:32 | RAD ---
Right fifth finger 3 views. HISTORY: Dog bite, laceration 3 views were taken of the right fifth finger. There is not evidence of an acute fracture or acute oss eous abnormality. There is an old healed fracture of the fifth metacarpal with wires sutures. There i s an old study healed distal radius fracture with a plate and screws. IMPRESSION: 1. No acute fracture noted in the right fifth finger. Electronically signed by: Avelino Taylor MD (07/22/2020 9:24 AM) [facility]
--- NOTE | 2020-07-22 09:55 | NUR ---
Triple-antibiotic ointment applied to finger. Chloroxynelol.
[2020-11-14] MEDS ORDERED: POLY17PO52 PO (02:03)
[2020-11-14] MEDS ORDERED: LEVO137T3 PO (02:03)
[2020-11-14] MEDS ORDERED: VENTOLIN HFA18 GM INH (02:03)
[2020-11-14] MEDS ORDERED: LITH150C PO (02:03)
[2020-11-14] MEDS ORDERED: ESTR42.58 VAG (02:03)
[2020-11-14] MEDS ORDERED: QUET200T PO (02:03)
[2020-11-14] MEDS ORDERED: OMEP20CA16 PO (02:03)
[2020-11-14] MEDS ORDERED: BUDE10.2 IH (02:03)
== END 2020-07-22 09:46 | disposition home or self-care (01) ==
LOC: ER 08:18
DX: S61.257A Open bite of left little finger without damage to nail, initial encounter (principal); J45.909 Unspecified asthma, uncomplicated; F31.9 Bipolar disorder, unspecified; E11.9 Type 2 diabetes mellitus without complications; E78.00 Pure hypercholesterolemia, unspecified; I10 Essential (primary) hypertension; Z72.0 Tobacco use; Z91.010 Allergy to peanuts; Z88.8 Allergy status to other drugs, medicaments and biological substances; W54.0XXA Bitten by dog, initial encounter; Y93.89 Activity, other specified; Y92.89 Other specified places as the place of occurrence of the external cause; Y99.9 Unspecified external cause status
CPT/HCPCS: 73140; 90471; 90715; 99283

== ENCOUNTER 2020-09-20 06:23 | Emergency (ER) | payer MEDICARE, OTHER ==
[~2020-09-20] VITALS: Ht 161.3 cm; Wt 47.7 kg
[~2020-09-20 06:23] MED LIST changes: +AMOX1TAB61 PO; +MUPI22OI2 TP
--- NOTE | 2020-09-20 06:54 | EKG ---
[facility] [address] [place] [address] Test Date: 2020-09-20 Test Time: 06:39:09 Pat Name: ANNABEL JIMENEZ Department: Room: Gender: F Irrigator Overhead: : 1945 Requested By: VIDHYA LEA Order Number: [id number] Reading MD: Measurements Intervals Arion Rate: 66 P: 66 [place]: 158 QRS: 46 QRSD: 86 T: 57 QT: 428 QTc: 451 Interpretive Statements SINUS RHYTHM NORMAL ECG RI6.02 No previous ECG available for comparison
[2020-09-20 07:20] LABS: BASO % 1 % (0-3); EOS # 0.1 x10^3/uL (0.0-0.7); EOS % 2 % (0-3); HEMATOCRIT 36.7 % (36.0-47.0); HEMOGLOBIN 12.1 g/dL (12.0-15.5); LYMPH # 1.3 x10^3/uL (1.0-4.8); LYMPH % 31 % (24-48); MEAN CORPUSCULAR HEMOGLOBIN 29 pg (25-35); MEAN CORPUSCULAR HGB CONC 33 g/dL (31-37); MEAN CORPUSCULAR VOLUME 86 fL (79-100); MONO # 0.5 x10^3/uL (0.0-1.1); MONO % 11 % (0-9); NEUT # 2.5 x10^3/uL (1.8-7.7); NEUT % 56 % (31-73); PLATELET COUNT 161 x10^3/uL (140-400); RED BLOOD COUNT 4.25 x10^6/uL (3.50-5.40); WHITE BLOOD COUNT 4.4 x10^3/uL (4.0-11.0)
[2020-09-20 07:21] LABS: CALCIUM 8.7 mg/dL (8.5-10.1); CREATININE 0.9 mg/dL (0.6-1.0); GFR 61.2; POTASSIUM 4.2 mmol/L (3.5-5.1)
[2020-09-20 07:26] LABS: ALBUMIN 3.6 g/dL (3.4-5.0); DIRECT BILIRUBIN 0.1 mg/dL (0.0-0.2); TOTAL BILIRUBIN 0.3 mg/dL (0.2-1.0); TOTAL PROTEIN 6.7 g/dL (6.4-8.2)
--- NOTE | 2020-09-20 07:28 | PHYS DOC ---
Past Medical History Past Medical History: Anxiety, Asthma, Bipolar, Cancer, Depression, Diabetes- Type II, High Cholesterol, Hypertension, UTI Additional Past Medical Histor: yeast infections, BREAST CA, MULTIPLE LUNG NODULES, THYROID DZ, ACID REFLUX Past Surgical History: Hip Replacement Additional Past Surgical Histo: rt wrist, R HAND SX, R. MASTECTOMY Smoking Status: Light Tobacco Smoker Alcohol Use: None Drug Use: Marijuana General Adult EDM: Chief Complaint: ABDOMINAL PAIN HPI: HPI: 75-year-old female presented emerge department today with abdominal pain in the left lower quadrant. It is a throbbing aching pain. Is been present for about 24 hours. It comes and goes and is nonradiating. She denies nausea vomiting. She denies changes in her stool habits. She denies dysuria polyuria or hematuria. Review of systems negative for chest pain shortness of breath headache fevers. All other review of systems negative. ED course: 75-year-old female presenting with left lower quadrant abdominal pain. Labs are unremarkable. Urinalysis negative. CT abdomen pelvis shows no acute pathology. Clinically she seems to have acute diverticulitis. We will give her Cipro and Flagyl and have her follow-up with her doctor tomorrow for repeat abdominal exam. The patient has been examined and was not found to have an emergency medical condition. The patient was then discharged home in stable condition to follow up with their primary care physician. They were to return if their symptoms worsened or if they were concerned for any reason. They were also instructed to return to the emergency department if they were unable to get the recommended and appropriate follow-up. [id number] discharge instructions and return precautions were given. Patient's questions were answered to their satisfaction. Patient is comfortable with plan. Heart Score: C/O Chest Pain: No Risk Factors: Risk Factors: DM, Current or recent (<one month) smoker, HTN, HLP, family history of CAD, obesity. Risk Scores: Score 0 - 3: 2.5% MACE over next 6 weeks - Discharge Home Score 4 - 6: 20.3% MACE over next 6 weeks - Admit for Clinical Observation Score 7 - 10: 72.7% MACE over next 6 weeks - Early Invasive Strategies Allergies: Allergies: Allergies Coded Allergies Type Severity Reaction Last Updated Verified peanut Allergy Intermediate Rash 11/15/15 Yes iodine Adverse Reaction Intermediate vomiting 05/27/14 Yes Physical Exam: PE: Constitutional: Well developed, well nourished, no acute distress, non-toxic appearance. [] HENT: Normocephalic, atraumatic, bilateral external ears normal, oropharynx moist, no oral exudates, nose normal. [] Eyes: PERRLA, EOMI, conjunctiva normal, no discharge. [] Neck: Normal range of motion, no tenderness, supple, no stridor. [] Cardiovascular:Heart rate regular rhythm, no murmur [] Lungs & Thorax: Bilateral breath sounds clear to auscultation [] Abdomen: Bowel sounds normal, soft, TTP in the llq, no masses, no pulsatile masses. No rebound tenderness or guarding. Nondistended. Skin: Warm, dry, no erythema, no rash. [] Back: No tenderness, no CVA tenderness. [] Extremities: No tenderness, no cyanosis, no clubbing, ROM intact, no edema. [] Neurologic: Alert and oriented X 3, normal motor function, normal sensory function, no focal deficits noted. [] Psychologic: Affect normal, judgement normal, mood normal. [] Current Patient Data: Labs: Laboratory Tests Test 09/20/20 07:00 Sodium Level 141 mmol/L (136-145) Potassium Level 4.2 mmol/L (3.5-5.1) Chloride Level 105 mmol/L (98-107) Carbon Dioxide Level 29 mmol/L (21-32) Anion Gap 7 (6-14) Blood Urea Nitrogen 18 mg/dL (7-20) Creatinine 0.9 mg/dL (0.6-1.0) Estimated GFR (Cockcroft-Gault) 61.2 Glucose Level 94 mg/dL (70-99) Calcium Level 8.7 mg/dL (8.5-10.1) Total Bilirubin 0.3 mg/dL (0.2-1.0) Direct Bilirubin 0.1 mg/dL (0.0-0.2) Aspartate Amino Transferase (AST) 30 U/L (15-37) Alanine Aminotransferase (ALT) 30 U/L (14-59) Alkaline Phosphatase 51 U/L (46-116) Total Protein 6.7 g/dL (6.4-8.2) Albumin 3.6 g/dL (3.4-5.0) Lipase 99 U/L (73-393) Laboratory Tests 09/20/20 07:00 Vital Signs: Vital Signs Date Time Temp Pulse Resp B/P (MAP) Pulse Ox O2 Delivery O2 Flow Rate FiO2 09/20/20 06:28 98.7 64 20 125/60 (81) 95 Room Air 98.7 EKG: EKG: Sinus rhythm regular rate. ST segments congruent. Not suggestive of acute ischemia. [] Radiology/Procedures: Radiology/Procedures: [] Course & Med Decision Making: Course & Med Decision Making Pertinent Labs and Imaging studies reviewed. (See chart for details) [] Dragon Disclaimer: Dragon Disclaimer: This electronic medical record was generated, in whole or in part, using a voice recognition dictation system. Departure Departure Impression: Primary Impression: Abdominal pain Disposition: 01 DC HOME SELF CARE/HOMELESS Condition: STABLE Referrals: ANGELICA ASHTON (PCP) Patient Instructions: Diverticulitis, [id number] Additional Instructions: EMERGENCY DEPARTMENT GENERAL DISCHARGE INSTRUCTIONS Follow-up with your primary physician in 1 to 2 days. Return to the emergency department if you have any new or concerning findings. Thank you for [facility] ([facility]) today and trusting us with you care. We trust that you had a positive experience in our Emergency Department. If you wish to speak to the department management, you may call the Director at [phone]. YOUR FOLLOW UP INSTRUCTIONS ARE FOLLOWS: 1. Do you have a private Doctor? If you do not have a private doctor, please ask for a resource list of physicians or clinics that may be able to assist you with follow up care. 2. If a lab test or culture has been done and does not come back immediately, your results will be reviewed and you will be notified if you need a change in treatment. ADDITIONAL INSTRUCTIONS AND INFORMATION: 1. Your care today has been supervised by a physician who is specially trained in emergency care. Many problems require more than one evaluation for a complete diagnosis and treatment. We recommend that you schedule your follow up appointment as recommended to ensure complete treatment of you illness or injury. If you are unable to obtain follow up care and continue to have a problem, or if your condition worsens, we recommend that you return to the ED. 2. We are not able to safely determine your condition over the phone nor are we able to give sound medical advice over the phone. For these safety reasons, if you call for medical advice we will ask you to come to the ED for further evaluation. 3. If you have any questions regarding these discharge instructions please call the ED at [phone]. SAFETY INFORMATION: In the interest of safety, wellness, and injury prevention; we encourage you to wear your sealbelt, if you smoke; quite smoking, and we encourage family to use a protective helmet for bicycling and other sporting events that present an increased risk for head injury. IF YOUR SYMPTOMS WORSEN OR NEW SYMPTOMS DEVELOP, OR YOU HAVE CONCERNS ABOUT YOUR CONDITION; OR IF YOUR CONDITION WORSENS WHILE YOU ARE WAITING FOR YOUR FOLLOW UP APPOINTMENT; EITHER CONTACT YOUR PRIMARY CARE DOCTOR, THE PHYSICIAN WHOSE NAME AND NUMBER YOU WERE GIVEN, OR RETURN TO THE ED IMMEDIATELY. This condition should be evaluated by your primary care physician and any necessary consulting services for continued management within a few days (1-2) after discharge. Return to the emergency department if you have any new or co ncerning symptoms including but not limited to fever, chills, nausea, vomiting, intractable pain, any new rashes, chest pain, shortness of breath, uncontrolled bleeding, difficulty breathing, and/or vision loss. Scripts Ciprofloxacin Hcl (CIPRO) 500 Mg Tablet 1 TAB PO BID for 7 Days, #14 TAB 0 Refills Prov: VIDHYA LEA MD 09/20/20 Metronidazole (FLAGYL) 500 Mg Tablet 1 TAB PO BID, #14 TAB Prov: VIDHYA LEA MD 09/20/20 VIDHYA LEA MD Sep 20, 2020 07:28
[2020-09-20] MEDS ORDERED: IV NORMAL SALINE 1000ML BAG 1,000 ML IV ONE (08:00)
[2020-09-20] MEDS ORDERED: MORPHINE SULFATE 2 MG/ML VIAL. IV PRN (08:00)
--- NOTE | 2020-09-20 08:00 | RAD ---
Exam: CT abdomen/pelvis without intravenous contrast Indication: Abdominal pain Comparison: CT abdomen pelvis 03/07/2020 Technique: Helical CT imaging performed of the abdomen and pelvis without the use of intravenous cont rast. Sagittal and coronal reformats were obtained. One or more of the following individualized dose reduction techniques were utilized for this examinat ion: 1. Automated exposure control 2. Adjustment of the mA and/or kV according to patient size 3. Use of iterative reconstruction technique. Findings: Inherently limited evaluation without intravenous contrast. Lower chest: Lung bases are clear. Heart is normal in size. There are bilateral breast implants, inco mpletely visualized. Liver: Unchanged 1 cm cyst in the posterior right hepatic lobe.. Gallbladder/Biliary Tree: Normal. Pancreas: Normal. Spleen: There are calcified splenic granulomas. No splenomegaly. Adrenal Glands: Normal. Kidneys/Ureters/Bladder: The kidneys are normal in size. Left nephrolithiasis with a 2 mm calculus is unchanged. No right nephrolithiasis. No hydronephrosis.. The distal right ureter and bladder are par tially obscured by streak artifact from a right hip prosthesis. Ureters and bladder are otherwise unr emarkable. Reproductive Organs: Uterus is anteverted. No adnexal mass. Stomach, small bowel, and colon: The stomach and small bowel are normal. The colon is unremarkable. A ppendix is not visualized. Vasculature: No aortic aneurysm. Mild calcified aortic atherosclerosis. Lymph Nodes: No lymphadenopathy. Peritoneum and retroperitoneum: No free fluid or free air. Bones: There is a right total hip prosthesis. T11 and L1 compression fractures with 40 percent verteb ral body height loss and no retropulsion of cortex are unchanged. No new fracture. Impression: 1. No acute abnormality. 2. Nonobstructing left nephrolithiasis. 3. Unchanged T11 and L1 compression fractures with mild height loss. Electronically signed by: Rupa Barahona MD (09/20/2020 7:58 AM) [id number]
[2020-09-20 08:09] LABS: BILIRUBIN,URINE NEGATIVE (NEG); CLARITY,URINE CLEAR; COLOR,URINE YELLOW; NITRITE,URINE NEGATIVE (NEG); PH,URINE 8.5 (<5.0-8.0); PROTEIN,URINE NEGATIVE (NEG-TRACE); UROBILINOGEN,URINE 0.2 mg/dL (0.2 mg/dL)
[2020-09-20 08:26] LABS: BACTERIA,URINE 0 /HPF (0-FEW); RBC,URINE 0 /HPF (0-2)
[2020-09-20] MEDS ORDERED: CIPR500T94 PO (08:33)
[2020-09-20] MEDS ORDERED: METR500T PO (08:33)
[2020-09-20 08:45] VITALS: BP 136/63
[2020-09-20] MEDS ORDERED: FLUC150T PO (09:18)
== END 2020-09-20 09:51 | disposition home or self-care (01) ==
LOC: ER 06:23
DX: R10.32 Left lower quadrant pain (principal); F41.9 Anxiety disorder, unspecified; J45.909 Unspecified asthma, uncomplicated; F32.9 Major depressive disorder, single episode, unspecified; E11.9 Type 2 diabetes mellitus without complications; E78.00 Pure hypercholesterolemia, unspecified; I10 Essential (primary) hypertension; F12.90 Cannabis use, unspecified, uncomplicated; Z85.3 Personal history of malignant neoplasm of breast; Z90.89 Acquired absence of other organs; Z98.890 Other specified postprocedural states; Z91.040 Latex allergy status; Z91.010 Allergy to peanuts
CPT/HCPCS: 36415; 74176; 80048; 80076; 81001; 83690; 84484; 85025; 93005; 96361; 96374; 99285; J2270; J7030

== ENCOUNTER 2020-11-13 08:05 | Emergency (ER) | payer MEDICARE, OTHER ==
[~2020-11-13] VITALS: Ht 160 cm; Wt 45.0 kg
[~2020-11-13 08:05] MED LIST changes: +CIPR500T94 PO; +FLUC150T PO; +METR500T PO
[2020-11-13] MEDS ORDERED: fentaNYL PF VIAL 100 MCG/2 ML VIAL IVP ONE (08:45)
[2020-11-13] MEDS ORDERED: ONDANSETRON PF 4 MG/2 ML VIAL. IVP ONE (08:45)
[2020-11-13] MEDS ORDERED: IV NORMAL SALINE 500ML BAG 500 ML IV ONE (08:45)
--- NOTE | 2020-11-13 09:12 | ED.ADGEN ---
Past Medical History Past Medical History: Anxiety, Asthma, Bipolar, Cancer, Depression, Diabetes- Type II, GERD, High Cholesterol, Hypertension, UTI Additional Past Medical Histor: yeast infections, BREAST CA, MULTIPLE LUNG NODULES, THYROID DZ Past Surgical History: Hip Replacement Additional Past Surgical Histo: rt wrist, R HAND SX, R. MASTECTOMY Smoking Status: Never Smoker Alcohol Use: None Drug Use: Marijuana General Adult EDM: Chief Complaint: ABDOMINAL PAIN HPI: HPI: Patient is a 75 year old female coming in for nausea and vomiting since 5 AM. Unsure of any time she had vomited. Has had multiple episodes of dry heaving. Denies any diarrhea. Says she has had some blood in her stools over the past week. Complaining of pain in the left lower quadrant of her abdomen. Says she has had increased urination but denies any dysuria or hematuria. 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 No recent travel, undercooked foods or antibiotic use. Review of Systems: Review of Systems: All other systems within normal limits except for as noted in the HPI Current Medications: Current Medications Medications (Trade) Dose Ordered Sig/Bruno Start Time Stop Time Status Last Admin Dose Admin Acetaminophen/ Hydrocodone Bitart (Lortab 10/325) 2 tab 1X ONCE 11/13/20 10:45 11/13/20 10:46 Fentanyl Citrate (Fentanyl 2ml Vial) 75 mcg 1X ONCE 11/13/20 08:45 11/13/20 08:52 DC 11/13/20 09:28 75 MCG Ondansetron HCl (Zofran) 4 mg 1X ONCE 11/13/20 08:45 11/13/20 08:52 DC 11/13/20 09:25 4 MG Sodium Chloride 500 ml @ 500 mls/hr 1X ONCE 11/13/20 08:45 11/13/20 09:44 DC 11/13/20 09:23 500 MLS/HR Allergies: Allergies: Allergies Coded Allergies Type Severity Reaction Last Updated Verified peanut Allergy Intermediate Rash 11/13/20 Yes iodine Adverse Reaction Intermediate vomiting 11/13/20 Yes Physical Exam: PE: Constitutional: Well developed, well nourished, no acute distress, non-toxic appearance. [] HENT: Normocephalic, atraumatic, bilateral external ears normal, nose normal. [] Eyes: PERRLA, conjunctiva normal, no discharge. [] Neck: No rigidity, supple, no stridor. [] Cardiovascular: Regular rate and rhythm, brisk cap refill [] Lungs & Thorax: Non labored symmetric respirations, no tachypnea or respiratory distress [] Abdomen: Soft, nondistended, left lower quadrant tenderness and guarding, peritoneal signs.. Skin: Warm, dry, no erythema, no rash. [] Back: Unremarkable Extremities: No deformities, range of motion grossly intact, no lower extremity edema [] Neurologic: Alert and oriented X 3, no focal deficits noted. [] Psychologic: Affect normal, judgement normal, mood normal. [] Current Patient Data: Labs: Laboratory Tests Test 11/13/20 08:55 11/13/20 09:20 11/13/20 09:35 White Blood Count 5.5 x10^3/uL (4.0-11.0) Red Blood Count 4.62 x10^6/uL (3.50-5.40) Hemoglobin 13.5 g/dL (12.0-15.5) Hematocrit 40.1 % (36.0-47.0) Mean Corpuscular Volume 87 fL (79-100) Mean Corpuscular Hemoglobin 29 pg (25-35) Mean Corpuscular Hemoglobin Concent 34 g/dL (31-37) Red Cell Distribution Width 13.4 % (11.5-14.5) Platelet Count 184 x10^3/uL (140-400) Neutrophils (%) (Auto) 60 % (31-73) Lymphocytes (%) (Auto) 27 % (24-48) Monocytes (%) (Auto) 10 % (0-9) H Eosinophils (%) (Auto) 3 % (0-3) Basophils (%) (Auto) 1 % (0-3) Neutrophils # (Auto) 3.3 x10^3/uL (1.8-7.7) Lymphocytes # (Auto) 1.5 x10^3/uL (1.0-4.8) Monocytes # (Auto) 0.5 x10^3/uL (0.0-1.1) Eosinophils # (Auto) 0.2 x10^3/uL (0.0-0.7) Basophils # (Auto) 0.0 x10^3/uL (0.0-0.2) Platelet Estimate Adequate (ADEQUATE) Large Platelets Occ Sodium Level 144 mmol/L (136-145) Potassium Level 4.4 mmol/L (3.5-5.1) Chloride Level 106 mmol/L (98-107) Carbon Dioxide Level 28 mmol/L (21-32) Anion Gap 10 (6-14) Blood Urea Nitrogen 17 mg/dL (7-20) Creatinine 0.7 mg/dL (0.6-1.0) Estimated GFR (Cockcroft-Gault) 81.8 BUN/Creatinine Ratio 24 (6-20) H Glucose Level 87 mg/dL (70-99) Calcium Level 8.6 mg/dL (8.5-10.1) Total Bilirubin 0.4 mg/dL (0.2-1.0) Aspartate Amino Transferase (AST) 25 U/L (15-37) Alanine Aminotransferase (ALT) 26 U/L (14-59) Alkaline Phosphatase 54 U/L (46-116) Troponin I Quantitative < 0.017 ng/mL (0.000-0.055) Total Protein 6.6 g/dL (6.4-8.2) Albumin 3.9 g/dL (3.4-5.0) Albumin/Globulin Ratio 1.4 (1.0-1.7) Lipase 117 U/L (73-393) Lactic Acid Level 1.1 mmol/L (0.4-2.0) Urine Collection Type U cath Urine Color Yellow Urine Clarity Clear Urine pH 7.0 (<5.0-8.0) Urine Specific [place] 1.010 (1.000-1.030) Urine Protein Negative mg/dL (NEG-TRACE) Urine Glucose (UA) Negative mg/dL (NEG) Urine Ketones (Stick) Negative mg/dL (NEG) Urine Blood Negative (NEG) Urine Nitrite Negative (NEG) Urine Bilirubin Negative (NEG) Urine Urobilinogen Dipstick 0.2 mg/dL (0.2 mg/dL) Urine Leukocyte Esterase Negative (NEG) Urine RBC Occ /HPF (0-2) Urine WBC 1-4 /HPF (0-4) Urine Squamous Epithelial Cells Occ /LPF Urine Bacteria 0 /HPF (0-FEW) Urine Mucus Slight /LPF Laboratory Tests 11/13/20 08:55 Laboratory Tests 11/13/20 08:55 Vital Signs: Vital Signs Date Time Temp Pulse Resp B/P (MAP) Pulse Ox O2 Delivery O2 Flow Rate FiO2 11/13/20 09:31 63 20 148/58 (88) 99 Room Air 11/13/20 08:15 98.3 98.3 EKG: EKG: [] Heart Score: C/O Chest Pain: No Risk Factors: Risk Factors: DM, Current or recent (<one month) smoker, HTN, HLP, family history of CAD, obesity. Risk Scores: Score 0 - 3: 2.5% MACE over next 6 weeks - Discharge Home Score 4 - 6: 20.3% MACE over next 6 weeks - Admit for Clinical Observation Score 7 - 10: 72.7% MACE over next 6 weeks - Early Invasive Strategies Radiology/Procedures: Radiology/Procedures: EXAM: CT Abdomen and Pelvis without IV contrast CLINICAL HISTORY: Left lower quadrant pain COMPARISON: none TECHNIQUE: Helical CT of the abdomen and pelvis without intravenous contrast. Axial, coronal and sagittal reformatted images were generated. PQRS compliance statement - One or more of the following individualized dose reduction techniques were utilized for this study: 1. Automated exposure control 2. Adjustment of the mA and/or kV according to patient size 3. Use of iterative reconstruction technique FINDINGS: Lack of intravenous contrast limits evaluation of solid organs, vasculature, and lymph nodes. Lower chest: Calcified granuloma lung bases. Small hiatal hernia. Bilateral breast implants are partially profiled Abdomen and Pelvis: Cystic lesion in the inferior right hepatic lobe. High density material within the gallbladder likely sludge. No biliary duct dilatation. Pancreas is unremarkable. Spleen is normal in appearance. No focal renal lesion. No hydronephrosis. No hydroureter. Bladder is unremarkable. Large volume colonic stool content is seen. There is trace infiltration about the left colon. No small or large bowel dilatation. No bowel obstruction. Segment of distal small bowel is distended with fecal material, small bowel feces sign. Streak artifact from the right hip arthroplasty limits evaluation of the pelvis. Uterus and adnexa are grossly unremarkable. Aortic calcifications are seen. No abdominal or pelvic ascites. No abdominal or pelvic lymphadenopathy. Bones: Height loss of the L1 vertebral body is stable. Height loss of the T11 vertebral body is also stable. No aggressive osseous lesion. Streak artifact from the right hip arthroplasty. Left hip joint degenerative changes are seen. IMPRESSION: Trace infiltration about the left colon may be seen with colitis. Moderate colonic stool content. Small bowel feces sign may be seen with delayed transit. No evidence for bowel obstruction. [] Course & Med Decision Making: Course & Med Decision Making Pertinent Labs and Imaging studies reviewed. (See chart for details) Showing uncomplicated colitis, exam consistent with diverticulitis. Will treat as such. Labs unremarkable Tanikaon Disclaimer: Angelo Disclaimer: This electronic medical record was generated, in whole or in part, using a voice recognition dictation system. Departure Departure Impression: Primary Impression: Diverticulitis Disposition: HOME / SELF CARE / HOMELESS Condition: STABLE Referrals: ANGELICA ASHTON (PCP) Patient Instructions: Diverticulitis Additional Instructions: Clear liquid diet and progress as tolerated judging by pain. Scripts Oxycodone/Apap 5-325 (PERCOCET 5-325 MG TABLET ) 1 Each Tablet 1 TAB PO QIDPRN PRN for PAIN MDD 4 Tablet(s) for 5 Days, #15 TAB 0 Refills Prov: KEEGAN KAY MD 11/13/20 Ondansetron (ONDANSETRON ODT) 4 Mg Tab.rapdis 1 TAB PO PRN Q6-8HRS PRN for NAUSEA for 3 Days, #10 TAB Prov: KEEGAN KAY MD 11/13/20 Amoxicillin/Potassium Clav (AUGMENTIN 875-125 TABLET) 1 Each Tablet 1 TAB PO Q12HR for antibiotic for 10 Days, #20 TAB Prov: KEEGAN KAY MD 11/13/20 KEEGAN KAY MD November 13, 2020 09:12
[2020-11-13 09:17] LABS: BASO % 1 % (0-3); CALCIUM 8.6 mg/dL (8.5-10.1); CREATININE 0.7 mg/dL (0.6-1.0); EOS # 0.2 x10^3/uL (0.0-0.7); EOS % 3 % (0-3); GFR 81.8; HEMATOCRIT 40.1 % (36.0-47.0); HEMOGLOBIN 13.5 g/dL (12.0-15.5); LYMPH # 1.5 x10^3/uL (1.0-4.8); LYMPH % 27 % (24-48); MEAN CORPUSCULAR HEMOGLOBIN 29 pg (25-35); MEAN CORPUSCULAR HGB CONC 34 g/dL (31-37); MEAN CORPUSCULAR VOLUME 87 fL (79-100); MONO # 0.5 x10^3/uL (0.0-1.1); MONO % 10 % (0-9); NEUT # 3.3 x10^3/uL (1.8-7.7); NEUT % 60 % (31-73); PLATELET COUNT 184 x10^3/uL (140-400); POTASSIUM 4.4 mmol/L (3.5-5.1); RED BLOOD COUNT 4.62 x10^6/uL (3.50-5.40); RED CELL DISTRIBUTION WIDTH 13.4 % (11.5-14.5); WHITE BLOOD COUNT 5.5 x10^3/uL (4.0-11.0)
[2020-11-13 09:26] LABS: ALBUMIN 3.9 g/dL (3.4-5.0); ALBUMIN/GLOBULIN RATIO 1.4 (1.0-1.7); TOTAL BILIRUBIN 0.4 mg/dL (0.2-1.0); TOTAL PROTEIN 6.6 g/dL (6.4-8.2)
--- NOTE | 2020-11-13 09:27 | RAD ---
EXAM: CT Abdomen and Pelvis without IV contrast CLINICAL HISTORY: Left lower quadrant pain COMPARISON: none TECHNIQUE: Helical CT of the abdomen and pelvis without intravenous contrast. Axial, coronal and sagi ttal reformatted images were generated. PQRS compliance statement - One or more of the following individualized dose reduction techniques wer e utilized for this study: 1. Automated exposure control 2. Adjustment of the mA and/or kV according to patient size 3. Use of iterative reconstruction technique FINDINGS: Lack of intravenous contrast limits evaluation of solid organs, vasculature, and lymph nodes. Lower chest: Calcified granuloma lung bases. Small hiatal hernia. Bilateral breast implants are partially profiled Abdomen and Pelvis: Cystic lesion in the inferior right hepatic lobe. High density material within the gallbladder likely sludge. No biliary duct dilatation. Pancreas is unremarkable. Spleen is normal in appearance. No foc al renal lesion. No hydronephrosis. No hydroureter. Bladder is unremarkable. Large volume colonic sto ol content is seen. There is trace infiltration about the left colon. No small or large bowel dilatat ion. No bowel obstruction. Segment of distal small bowel is distended with fecal material, small dulce maria l feces sign. Streak artifact from the right hip arthroplasty limits evaluation of the pelvis. Uterus and adnexa are grossly unremarkable. Aortic calcifications are seen. No abdominal or pelvic ascites. No abdominal or pelvic lymphadenopathy. Bones: Height loss of the L1 vertebral body is stable. Height loss of the T11 vertebral body is also stable. No aggressive osseous lesion. Streak artifact from the right hip arthroplasty. Left hip joint degene rative changes are seen. IMPRESSION: Trace infiltration about the left colon may be seen with colitis. Moderate colonic stool content. Small bowel feces sign may be seen with delayed transit. No evidence for bowel obstruction. Electronically signed by: Hussain Centeno MD (11/13/2020 9:24 AM) [facility]
[2020-11-13 09:56] LABS: BILIRUBIN,URINE NEGATIVE (NEG); CLARITY,URINE CLEAR; COLOR,URINE YELLOW; NITRITE,URINE NEGATIVE (NEG); PROTEIN,URINE NEGATIVE (NEG-TRACE); UROBILINOGEN,URINE 0.2 mg/dL (0.2 mg/dL)
[2020-11-13 10:08] LABS: PLT ESTIMATE ADEQUATE (ADEQUATE)
[2020-11-13 10:11] LABS: BACTERIA,URINE 0 /HPF (0-FEW); RBC,URINE OCC /HPF (0-2)
[2020-11-13] MEDS ORDERED: AMOXICILLIN/K CLAV 875/125MG TABLET. PO ONE (10:45)
[2020-11-13] MEDS ORDERED: HYDROcodone/APAP 10/325 1 TAB TABLET PO ONE (10:45)
[2020-11-13] MEDS ORDERED: HYDROmorphone 2 MG/ML VIAL IVP ONE (10:45)
[2020-11-13] MEDS ORDERED: OXYC1TAB15 PO (10:48)
[2020-11-13] MEDS ORDERED: AMOX1TAB61 PO (10:48)
[2020-11-13] MEDS ORDERED: ONDA4TAB12 PO (10:48)
[2020-11-13 11:30] VITALS: BP 138/69
[2020-11-14] MEDS ORDERED: OMEP20CA16 PO (02:03)
[2020-11-14] MEDS ORDERED: POLY17PO52 PO (02:03)
[2020-11-14] MEDS ORDERED: BUDE10.2 IH (02:03)
[2020-11-14] MEDS ORDERED: LEVO137T3 PO (02:03)
[2020-11-14] MEDS ORDERED: LITH150C PO (02:03)
[2020-11-14] MEDS ORDERED: ESTR42.58 VAG (02:03)
[2020-11-14] MEDS ORDERED: VENTOLIN HFA18 GM INH (02:03)
[2020-11-14] MEDS ORDERED: QUET200T PO (02:03)
== END 2020-11-13 12:03 | disposition home or self-care (01) ==
LOC: ER 08:05
DX: K57.92 Diverticulitis of intestine, part unspecified, without perforation or abscess without bleeding (principal); J45.909 Unspecified asthma, uncomplicated; F31.9 Bipolar disorder, unspecified; E11.9 Type 2 diabetes mellitus without complications; K21.9 Gastro-esophageal reflux disease without esophagitis; E78.00 Pure hypercholesterolemia, unspecified; I10 Essential (primary) hypertension; Z91.010 Allergy to peanuts; Z88.8 Allergy status to other drugs, medicaments and biological substances
CPT/HCPCS: 36415; 74176; 80053; 81001; 83605; 83690; 84484; 85025; 96374; 96375; J1170; J2405; J3010; J7040; 99285-25

== ENCOUNTER 2020-12-04 22:15 | Emergency (ER) | payer MEDICARE, OTHER ==
[~2020-12-04] VITALS: Ht 160 cm; Wt 46.8 kg
[~2020-12-04 22:15] MED LIST changes: +BUDE10.2 IH; +ESTR42.58 VAG; +LEVO137T3 PO; +LITH150C PO; +OMEP20CA16 PO; +ONDA4TAB12 PO; +OXYC1TAB15 PO; +POLY17PO52 PO; +QUET200T PO; +VENTOLIN HFA18 GM INH
--- NOTE | 2020-12-05 00:52 | PHYS DOC ---
Past Medical History Past Medical History: Anxiety, Asthma, Bipolar, Cancer, Depression, Diabetes- Type II, GERD, High Cholesterol, Hypertension, UTI Additional Past Medical Histor: yeast infections, BREAST CA, MULTIPLE LUNG NODULES, THYROID DZ Past Surgical History: Hip Replacement Additional Past Surgical Histo: rt wrist, R HAND SX, R. MASTECTOMY Smoking Status: Former Smoker Alcohol Use: None Drug Use: Marijuana General Adult EDM: Chief Complaint: CONTISPATION HPI: HPI: Patient is a 75 year old male presents with a chief complaint of constipation. Patient states she has not had a bowel movement for 2 weeks. Patient does states she has had loose stools. Patient was hospitalized a week and half ago for diverticulitis. Patient states during hospitalization she was treated with morphine. Patient denies taking any pain medication since discharge. Patient has been evaluated by her primary care physician. Patient states she has used multiple enemas and liquid medications with no bowel movement. States she has been nauseous she has vomited. On exam patient's abdomen is soft without rebound or guarding. Patient requesting enema. Review of Systems: Review of Systems: Constitutional: Denies fever or chills. [] Eyes: Denies change in visual acuity. [] HENT: Denies nasal congestion or sore throat. [] Respiratory: Denies cough or shortness of breath. [] Cardiovascular: Denies chest pain or edema. [] GI: Denies abdominal pain, nausea, vomiting, bloody stools or diarrhea. [] : Denies dysuria. [] Musculoskeletal: Denies back pain or joint pain. [] Integument: Denies rash. [] Neurologic: Denies headache, focal weakness or sensory changes. [] Endocrine: Denies polyuria or polydipsia. [] Lymphatic: Denies swollen glands. [] Psychiatric: Denies depression or anxiety. [] Heart Score: C/O Chest Pain: N/A Risk Factors: Risk Factors: DM, Current or recent (<one month) smoker, HTN, HLP, family history of CAD, obesity. Risk Scores: Score 0 - 3: 2.5% MACE over next 6 weeks - Discharge Home Score 4 - 6: 20.3% MACE over next 6 weeks - Admit for Clinical Observation Score 7 - 10: 72.7% MACE over next 6 weeks - Early Invasive Strategies Allergies: Allergies: Allergies Coded Allergies Type Severity Reaction Last Updated Verified lactose Allergy Intermediate Nausea and Vomiting 11/16/20 Yes peanut Allergy Intermediate Rash 11/13/20 Yes iodine Adverse Reaction Intermediate vomiting 11/13/20 Yes Physical Exam: PE: General: alert, no acute distress. Skin: warm, dry and intact. Head:: Normocephalic, atraumatic. Neck: Trachea midline. Eyes: EOMI, Normal conjunctiva, No drainage CARDIOVASCULAR: Regular rate and rhythm RESPIRATORY: No respiratory distress Back: Full range of motion. MUSCULOSKELETAL: Full range of motion of bilateral upper and lower extremities. GASTROINTESTINAL: Abdomen soft without rebound or guarding. NEUROLOGICAL: Alert and noted to person, place and time. No neurological deficits observed Psychiatric: Cooperative. Normal judgment Current Patient Data: Vital Signs: Vital Signs Date Time Temp Pulse Resp B/P (MAP) Pulse Ox O2 Delivery O2 Flow Rate FiO2 12/05/20 00:12 52 15 140/65 (90) 99 Room Air 12/04/20 23:00 98.1 98.1 Radiology/Procedures: Radiology/Procedures: [] Impression: History: Constipation. Comparison: None. Findings: The lungs and pleural margins are clear. There is prior right hip hemiarthroplasty. There is air scattered throughout portions the colon however this appears to be mostly on the right and in the pelvis. There is a paucity small bowel gas. There is no free air. Impression: Abnormal bowel gas pattern is nonobstructive but suggests possible left-sided colitis. Course & Med Decision Making: Course & Med Decision Making Pertinent Labs and Imaging studies reviewed. (See chart for details) []Enema in ER. Large stool. Rx golytle. Patient discharged home. Angelo Disclaimer: Angelo Disclaimer: This electronic medical record was generated, in whole or in part, using a voice recognition dictation system. Departure Departure Impression: Primary Impression: Constipation Disposition: HOME / SELF CARE / HOMELESS Condition: STABLE Referrals: ANGELICA ASHTON (PCP) Patient Instructions: Constipation, Adult Scripts Peg 3350/Na Sulf,Bicarb,Cl/Kcl (GOLYTELY SOLUTION) 4,000 Ml Soln.recon 4000 ML PO 1X for 1 Day, #1 MISC drink 8oz q 10 minutes until stool Prov: CRISTINE BETANCOURT I DO 12/05/20 CRISTINE BETANCOURT I DO December 05, 2020 00:52
[2020-12-05] MEDS ORDERED: PEG4000S8 PO (02:49)
--- NOTE | 2020-12-05 03:49 | RAD ---
Acute Abdominal Series: Technique: PA view of the chest and supine and upright views of the abdomen were obtained. History: Constipation. Comparison: None. Findings: The lungs and pleural margins are clear. There is prior right hip hemiarthroplasty. There is air scat tered throughout portions the colon however this appears to be mostly on the right and in the pelvis. There is a paucity small bowel gas. There is no free air. Impression: Abnormal bowel gas pattern is nonobstructive but suggests possible left-sided colitis. Electronically signed by: César Hirsch III, MD (12/05/2020 3:47 AM) [facility]
[2020-12-05 03:55] VITALS: BP 134/67
== END 2020-12-05 04:00 | disposition home or self-care (01) ==
LOC: ER 22:15
DX: K59.00 Constipation, unspecified (principal); R11.2 Nausea with vomiting, unspecified; J45.909 Unspecified asthma, uncomplicated; F31.9 Bipolar disorder, unspecified; E11.9 Type 2 diabetes mellitus without complications; K21.9 Gastro-esophageal reflux disease without esophagitis; E78.00 Pure hypercholesterolemia, unspecified; I10 Essential (primary) hypertension; Z87.891 Personal history of nicotine dependence; Z91.010 Allergy to peanuts; Z91.011 Allergy to milk products; Z88.8 Allergy status to other drugs, medicaments and biological substances
CPT/HCPCS: 74022; 99285-25

== ENCOUNTER → 2021-02-12 | Outpatient (CLI) | payer MEDICARE, OTHER ==
[~2021-02-12] MED LIST changes: -DOXY100C2 PO; +DOXY100C3 PO; -QUET200T PO; +QUET200T2 PO
--- NOTE | 2021-02-12 11:26 | RAD ---
EXAM: Chest, 2 views. HISTORY: Cough. Asthma. COMPARISON: None. FINDINGS: 2 views of the chest are obtained. There is hyperinflation likely due to inspiratory effort or emphysema. There is biapical pleural parenchymal scarring. There is no infiltrate, pleural effusi on or pneumothorax. The heart is normal in size. There are breast implants, the left of which demonst rate capsular calcification. There is a severe superior thoracic wedge compression fracture and mild inferior thoracic and upper lumbar wedge compression fractures. These are chronic in appearance. IMPRESSION: No acute pulmonary finding. Electronically signed by: Mimi Krause MD (02/12/2021 11:24 AM) [id number]
== END ==
LOC: RAD 10:45
PROVIDERS: ATTEND Internal Medicine Pulmonary Disease
DX: J45.909 Unspecified asthma, uncomplicated (principal); J98.11 Atelectasis; J98.4 Other disorders of lung; M48.55XA Collapsed vertebra, not elsewhere classified, thoracolumbar region, initial encounter for fracture
CPT/HCPCS: 71046